=== PATIENT | female | born 1970 | race Caucasian/White ===

== ENCOUNTER 2020-08-28 03:15 | Emergency (ER) | payer OTHER, SELFPAY ==
[2020-08-28 03:48] LABS: Basophils Percent Auto 0.2 % (0-2); Hematocrit 37.1 % (37-47); Hemoglobin 12.9 g/dl (12.0-16.0); Imm Gran Abs Auto 0.06 X10*3/uL (0.00-0.03); Imm Gran Pct Auto 0.4 % (0.0-0.4); Lymphocytes Absolute Auto 0.7 X10*3/uL (1.2-4.9); Lymphocytes Percent Auto 4.9 % (20-40); Mean Corpuscular HGB Conc 34.8 g/dl (31.0-35.0); Mean Corpuscular Hemoglobin 31.5 pg (27.0-33.0); Mean Corpuscular Volume 90.7 fL (80-98); Mean Platelet Volume 8.5 fL (9.4-12.3); Monocytes Absolute Auto 1.4 X10*3/uL (0.1-1.2); Neutrophils Absolute Auto 11.9 X10*3/uL (2.0-8.3); Neutrophils Percent Auto 84.5 % (45-73); Platelet Count 324 X10*3/uL (160-400); Red Blood Count 4.09 X10*6/uL (4.20-5.50); Red Cell Distribution Width 14.1 % (11.0-16.0); SCAN SMEAR FLAG 1; White Blood Count 14.1 X10*3/uL (4.8-10.8)
[2020-08-28 03:49] LABS: MANUAL DIFF FLAG NO
[2020-08-28 04:17] VITALS: BP 124/86; PULSE 110; RESP 18; TEMP 37.1; O2SAT 99; BMI 17.2
[2020-08-28 04:20] LABS: Ethanol < 10 mg/dL
[2020-08-28 04:28] LABS: Alanine Aminotransferase 25 U/L (0-31); Albumin Level 3.9 g/dL (3.5-5.0); Alkaline Phosphatase 83 U/L (39-117); Anion Gap 18 (12-20); Aspartate Amino Transferase 53 U/L (5-31); Bilirubin Total 1.1 mg/dL (0.0-1.0); Blood Urea Nitrogen 15 mg/dL (9-16); Carbon Dioxide 34 mmol/L (22-29); Chloride 87 mmol/L (96-108); Creatinine Clr Calc Pharmacy 44.2; Estimated Glomerular Filt Rate 60; Glucose Random 142 mg/dL (60-115); Potassium 3.4 mmol/l (3.3-5.1); Sodium 136 mmol/L (135-145); Total Protein 6.7 g/dL (6.5-8.0)
[2020-08-28 05:03] LABS: Calcium 8.7 mg/dL (8.4-10.2)
--- NOTE | 2020-08-28 06:07 | PC.NURSE ---
Pt reports feeling better following IV fluids, Pt requesting something for nausea.
[2020-08-28 06:11] VITALS: BP 109/73; PULSE 100; O2SAT 99
[2020-08-28] MEDS: 0.9 % Sodium Chloride 1,000 ML 999 ML IVCONT (06:24)
[2020-08-28] MEDS: ondansetron HCL 4 MG/2 ML VIAL IVPUSH (06:24)
--- NOTE | 2020-08-28 06:35 | PC.NURSE ---
pt asking for anxiety medication. pt was ambulatory to bathroom with steady gait.
--- NOTE | 2020-08-28 06:35 | ED.ALCOHOL ---
HPI - Alcohol General Chief Complaint: ETOH/Substance Use Stated Complaint: Alcohol Withdrawals Time Seen by Provider: 08/28/20 06:35 Source: patient Mode of arrival: ambulatory Limitations: no limitations History of Present Illness MD complaint: alcohol withdrawal Last drink: Days (ago) (1) Chronic alcohol use: Yes Previous visits for alcohol intoxication: Yes Recent trauma: No Associated symptoms: nausea, vomiting, tremors and depression Treatments prior to arrival: none Related Data Allergies Allergy/AdvReac Type Severity Reaction Status Date / Time acetaminophen [From PERCOCET] Allergy Unknown PURITIS Verified 08/28/20 07:42 oxycodone [From OXYCONTIN] Allergy Unknown ITCHING Verified 08/28/20 07:42 vicodin Allergy Unknown Itching Uncoded 08/28/20 04:22 Review of Systems Review of Systems: Constitutional : No Fever, No Chills ENT/Mouth : No sore throat, No Rhinorrhea Eyes: No Eye Pain, No Swelling, No Redness Cardiovascular : No Chest Pain, No SOB Respiratory : No Cough, No Sputum Gastrointestinal : pos Nausea, pos Vomiting, No Diarrhea, No abdominal Pain Genitourinary : No Dysuria, No Hematuria Musculoskeletal : No joint pain, No Myalgias, No Joint Swelling Skin : No Skin Lesions, No rash Neuro : No Weakness, No Numbness Psych : pos Anxiety, No Depression, No SI/HI/AH/VH Heme/Lymph: No Bruising, No Bleeding Endocrine : No Polyuria, No Polydipsia All other systems reviewed and are negative FOR[facility]LY [facility], [facility] Past Medical History Medical History (Updated 08/28/20 @ 06:49 by Laura Brown DO) Alcoholism Depression Hypokalemia Social History Social History (Updated 08/28/20 @ 06:49 by Laura Brown DO) Alcohol intake: current Smoking Status: Former smoker Advance Directives: No Advance Directives Information Provided: No Physical Exam Vital Signs: Vital Signs: Vital Signs Temp Pulse Resp BP Pulse Ox 08/28/20 06:11 100 109/73 99 08/28/20 04:17 98.7 F 110 H 18 124/86 99 Body Mass Index 17.2 Appearance: Alert. Oriented X3. No acute distress. anxious Eyes: Pupils equal, round and reactive to light. ENT: Pharynx normal. Neck: Normal inspection. Neck supple. CVS: Normal heart rate and rhythm. Pulses normal. Respiratory: No respiratory distress. Breath sounds normal. Abdomen: Soft and nontender. Skin: Skin warm and dry. Normal skin color. Normal skin turgor. Extremities: No lower extremity edema. No calf ttp Neuro: Oriented X 3. No motor deficit. No sensory deficit. Course Course Course Narrative: cleared by CARE team, has resources at home, stable for DC at this time, can tolerate PO MDM - Alcohol MDM Narrative Medical decision making narrative: 50 yo female with ETOH who had a rehab set up but didn't go comes in with n/v and feeling weak - will give librium, hydrate obtain labs and refer to recovery coaches, no SI/HI Lab Data Result diagrams: 08/28/20 03:43 08/28/20 03:43 Labs: Lab Results 08/28/20 08/28/20 08/28/20 Range/Units 03:43 03:43 03:43 WBC 14.1 H (4.8-10.8) X10*3/uL RBC 4.09 L (4.20-5.50) X10*6/uL Hgb 12.9 (12.0-16.0) g/dl Hct 37.1 (37-47) % MCV 90.7 (80-98) fL MCH 31.5 (27.0-33.0) pg MCHC 34.8 (31.0-35.0) g/dl RDW 14.1 (11.0-16.0) % Plt Count 324 (160-400) X10*3/uL MPV 8.5 L (9.4-12.3) fL Immature Gran % (Auto) 0.4 (0.0-0.4) % Neut % (Auto) 84.5 H (45-73) % Lymph % (Auto) 4.9 L (20-40) % [place] % (Auto) 10.0 (2-11) % Eos % (Auto) 0.0 (0-4) % Baso % (Auto) 0.2 (0-2) % Lymph # (Auto) 0.7 L (1.2-4.9) X10*3/uL [place] # (Auto) 1.4 H (0.1-1.2) X10*3/uL Eos # (Auto) 0.0 (0.0-0.4) X10*3/uL Baso # (Auto) 0.0 (0.0-0.2) X10*3/uL Abs Immat Gran (auto) 0.06 H (0.00-0.03) X10*3/uL Absolute Neuts (auto) 11.9 H (2.0-8.3) X10*3/uL Absolute Nucleated RBC 0.000 (0.0-0.012) X10*3/uL Nucleated RBC % (auto) 0.0 (0.0-0.2) /100WBC Sodium 136 (135-145) mmol/L Potassium 3.4 (3.3-5.1) mmol/l Chloride 87 L (96-108) mmol/L Carbon Dioxide 34 H (22-29) mmol/L Anion Gap 18 (12-20) BUN 15 (9-16) mg/dL Creatinine 0.98 (0.5-1.4) mg/dL Estim Creat Clear Calc 44.2 Estimated GFR 60 Random Glucose 142 H (60-115) mg/dL Calcium 8.7 (8.4-10.2) mg/dL Magnesium 1.5 L (1.6-2.6) mg/dL Total Bilirubin 1.1 H (0.0-1.0) mg/dL AST 53 H (5-31) U/L ALT 25 (0-31) U/L Alkaline Phosphatase 83 (39-117) U/L Total Protein 6.7 (6.5-8.0) g/dL Albumin 3.9 (3.5-5.0) g/dL Urine Opiates Screen (Not Detect) Ur Barbiturates Screen (Not Detect) Ur Phencyclidine Scrn (Not Detect) Ur Amphetamines Screen (Not Detect) U Benzodiazepines Scrn (Not Detect) Urine Cocaine Screen (Not Detect) U Marijuana (THC) Screen (Not Detect) Ethyl Alcohol < 10 mg/dL 08/28/20 Range/Units 06:27 WBC (4.8-10.8) X10*3/uL RBC (4.20-5.50) X10*6/uL Hgb (12.0-16.0) g/dl Hct (37-47) % MCV (80-98) fL MCH (27.0-33.0) pg MCHC (31.0-35.0) g/dl RDW (11.0-16.0) % Plt Count (160-400) X10*3/uL MPV (9.4-12.3) fL Immature Gran % (Auto) (0.0-0.4) % Neut % (Auto) (45-73) % Lymph % (Auto) (20-40) % [place] % (Auto) (2-11) % Eos % (Auto) (0-4) % Baso % (Auto) (0-2) % Lymph # (Auto) (1.2-4.9) X10*3/uL [place] # (Auto) (0.1-1.2) X10*3/uL Eos # (Auto) (0.0-0.4) X10*3/uL Baso # (Auto) (0.0-0.2) X10*3/uL Abs Immat Gran (auto) (0.00-0.03) X10*3/uL Absolute Neuts (auto) (2.0-8.3) X10*3/uL Absolute Nucleated RBC (0.0-0.012) X10*3/uL Nucleated RBC % (auto) (0.0-0.2) /100WBC Sodium (135-145) mmol/L Potassium (3.3-5.1) mmol/l Chloride (96-108) mmol/L Carbon Dioxide (22-29) mmol/L Anion Gap (12-20) BUN (9-16) mg/dL Creatinine (0.5-1.4) mg/dL Estim Creat Clear Calc Estimated GFR Random Glucose (60-115) mg/dL Calcium (8.4-10.2) mg/dL Magnesium (1.6-2.6) mg/dL Total Bilirubin (0.0-1.0) mg/dL AST (5-31) U/L ALT (0-31) U/L Alkaline Phosphatase (39-117) U/L Total Protein (6.5-8.0) g/dL Albumin (3.5-5.0) g/dL Urine Opiates Screen Not Detected (Not Detect) Ur Barbiturates Screen Not Detected (Not Detect) Ur Phencyclidine Scrn Not Detected (Not Detect) Ur Amphetamines Screen Not Detected (Not Detect) U Benzodiazepines Scrn Not Detected (Not Detect) Urine Cocaine Screen Not Detected (Not Detect) U Marijuana (THC) Screen POSITIVE H (Not Detect) Ethyl Alcohol mg/dL
[2020-08-28 07:04] LABS: Amphetamine Screen Urine Not Detected (Not Detect); Barbiturates, Urine Not Detected (Not Detect); Benzodiazepines Screen Urine Not Detected (Not Detect); Cannabinoid Screen Urine POSITIVE (Not Detect); Cocaine Screen Urine Not Detected (Not Detect); Opiate Screen Urine Not Detected (Not Detect); Phencyclidine Screen Urine Not Detected (Not Detect)
[2020-08-28 07:08] LABS: Magnesium 1.5 mg/dL (1.6-2.6)
[2020-08-28] MEDS: chlordiazePOXIDE HCl 25 MG CAPSULE PO (07:43)
--- NOTE | 2020-08-28 08:24 | PC.NURSE ---
GIGI SEEN BY CARE TEAM TO ADDRESS ETOH ABUSE
--- NOTE | 2020-08-28 08:26 | PC.NURSE ---
CALL TO PHARM TO MAKE BANANA BAG.
--- NOTE | 2020-08-28 08:37 | MHC.CARE ---
CARE Team consult RE: etoh CARE Team met with the 50 year old [place] speaking Female in bed 4 of the main ED to discuss alcohol use and recovery. Patient was previously here a month ago due to alcohol use. Patient reports she is tired of living like this, reporting that she feels bad for her family and her boyfriend who have to put up with her. Patient reports that she has been dealing with alcoholism and anorexia for 11 years and she feels as though her boyfriend is fed up with giving her last chances. [facility] and that her psychiatrist had gotten her into [facility] 3 [facility] however her boyfriend did not want her to go. Patient reports that her boyfriend did not want her away that long, especially for the holidays. Patient reports her and her boyfriend had an argument due to her being unable to stop drinking and that he told her not to come back to the house that they both own. [facility] reports that [facility] that was supposed to start yesterday however she did not attend. Patient acknowledges that at this time she would benefit most from going to rehab and utilizing the supports she has in place. Patient reports she has [facility] and [facility] and that she was previously attending 3 groups a day there. Patient reports her longest period of sobriety was about a year ago and that it lasted for about a year. Patient reports that when her alcoholism is under control, her anorexia gets worse. Patient denies SI/HI/AH/VH however reports depression and hopelessness. Patient encouraged to reach out to the [facility] to see what they can offer her at this time. Patient does not have insurance so it is in her best [facility]. CARE Team will check in with patient to see if there is any additional resources patient is interested in however patient is well [facility] the [facility]. Discussed case with ED provider. [facility] Team available as needed.
[2020-08-28] MEDS: LORazepam 1 MG TABLET PO (09:24)
[2020-08-28 09:25] VITALS: BP 100/61; PULSE 102
--- NOTE | 2020-08-28 09:26 | PC.NURSE ---
BANANA BAG UP. MEDICATED WITH [facility]. PLAN IS FOR DC AFTER IVF. BOYFRIEND COMING. [facility] WILL F[facility]U WITH PT ABOUT [facility]OX
--- NOTE | 2020-08-28 09:37 | PC.NURSE ---
OFF UNIT TO CT
== END 2020-08-28 10:38 | disposition home or self-care (01) ==
PROVIDERS: Emergency Medicine; Emergency Provider Emergency Medicine
DX: F10.239 Alcohol dependence with withdrawal, unspecified (principal); Y90.9 Presence of alcohol in blood, level not specified; R11.2 Nausea with vomiting, unspecified; Z79.899 Other long term (current) drug therapy
CPT/HCPCS: 36415; 80053; 80307; 80320; 83735; 85025; 96361; 96374; 96375; 99284; J2405; J3411

== ENCOUNTER 2021-05-06 09:32 | Inpatient (IN) | payer OTHER, SELFPAY ==
[2021-05-06] VITALS (9 sets, daily range): BP systolic 115–156; BP diastolic 63–96; PULSE 102–130; RESP 16–22; TEMP 36.6–37.1; O2SAT 93–98; BMI 18.3
--- NOTE | 2021-05-06 | ECG_ITS ---
Test Reason : FALL Blood Pressure : / mmHG Vent. Rate : 103 BPM Atrial Rate : 103 BPM P-R Int : 150 ms QRS Dur : 086 ms QT Int : 394 ms P-R-T Axes : 075 065 072 degrees QTc Int : 516 ms Sinus tachycardia Otherwise normal ECG When compared with ECG of 23-JUL-2020 08:01, No significant change was found Referred By: Jose Raul Rushing Electronically Signed By:Jon Shukla
--- NOTE | ~2021-05-06 | CT_ITS ---
EXAMINATION: CT BRAIN AND CT CERVICAL SPINE WITHOUT CONTRAST. CLINICAL INFORMATION: Status post fall and hematoma COMPARISON: None TECHNIQUE: 5 mm thin axial and reformatted 2 mm thin sagittal and coronal images of brain were obtained. Subsequently axial 3 mm thin and reformatted 2 mm thin sagittal and coronal images of cervical spine were obtained. DLP 879 FINDINGS: BRAIN: There is no acute intra-axial, extra-axial bleed, masses or midline shift. There is no acute infarct in evolution. The lateral ventricles are symmetrical in size and configuration without enlargement. There is no edema. There is acute left parietal hematoma with moderate subacute hematoma extending to the right of midline. There is no calvarial fracture. CERVICAL SPINE: There is normal cervical lordosis. The vertebral heights and alignment is normal. There is loss of C4-C5 disc height with ventral and posterior spondylosis. There is no visible acute fracture, dislocation or subluxation seen. The craniovertebral junction and the C1-C2 alignment is normal. There is no visible acute fracture, dislocation or subluxation seen. There is mild left apical pleural thickening and parenchymal scarring. The prevertebral and paravertebral soft tissues are normal. The airway is widely patent. CT/CT cervical spine wo con IMPRESSION: No acute intracranial process seen. There is no acute fracture, dislocation or subluxation of cervical spine. There are degenerative disc changes with posterior spondylosis at C4-C5 disc level.
--- NOTE | ~2021-05-06 | IR_ITS ---
EXAMINATION: IR SACROPLASTY/KYPHOPLASTY CLINICAL INFORMATION: Bilateral sacral fractures. COMPARISON: None TECHNIQUE: Following explaining fluoroscopy-guided bilateral approach sacroplasty procedure, benefits and risk, a written consent was obtained. Patient was placed prone on fluoroscopy table and low back area was cleaned and draped in the usual sterile manner. 1% lidocaine was injected overlying the right lateral sacrum. Through a small skin incision a 10-gauge Kyphon needle was inserted along the right lateral sacrum on AP and lateral view. A similar 10-gauge needle was advanced along the left sacrum on AP and lateral view. 5 mL of contrast was injected to confirm position of the needle. Subsequently, premixed polymethyl methacrylate was injected through the right needle followed by left needle under continuous AP, and lateral fluoroscopy monitoring. After achieving adequate amount of cement and observing no cement leak, both needles were withdrawn and complete hemostasis achieved at puncture site. Patient tolerated procedure extremely well. Sedation was provided by the Anesthesia Department. 2 g of Kefzol was administered prior to the exam. FINDINGS: There is adequate amount of cement seen occupying the S1 vertebra with no extravasation of contrast visualized. The SI joints are symmetrical and normal. FLUOROSCOPY TIME: 17.6 minutes DOSE AREA PRODUCT: 3138 uGy-m2 (microgray-meter squared) IR/IR kyphoplasty lumbar IMPRESSION: Successful fluoroscopy-guided bilateral S1 Sacroplasty performed without immediate complications.
--- NOTE | ~2021-05-06 | CT_ITS ---
EXAMINATION: CT PELVIS WITHOUT CONTRAST CLINICAL INFORMATION: Status post traumatic deformity sacrum and coccyx. Old healed fracture inferior pubic rami and likely underlying fracture bilateral superior pubic rami on recent x-ray 05/06/2021. COMPARISON: Pelvis x-ray performed today. TECHNIQUE: Helical scanning was performed with submillimeter collimation through the pelvis. Sagittal and coronal multiplanar 2-D reconstructions were obtained. This CT examination was performed using dose optimization techniques as appropriate, variously including the following: *Automated exposure control *Adjustment of mA and/or kV according to patient size (this includes techniques or standardized protocols for targeted exams where dose is matched to indication/reason for exam; i.e. extremities or head) *Use of iterative reconstruction technique DLP: 172 mGy-cm FINDINGS: PELVIS: Gas pattern is nonspecific. No abnormal pelvic lymph nodes or mass seen. There is no free fluid. The uterus is anteverted and appears unremarkable. The abdominal wall appears normal. OSSEOUS STRUCTURES: There is a kyphotic deformity from S2-S3 fracture. There are bilateral sacral alar fractures as well. These fractures appear acute and nodules. The SI joints are symmetrical and normal. Also visualized is a healed left pubic rami fracture with callus formation. There are fractures involving bilateral inferior pubic rami with callus formation. The fracture lines are seen bilaterally. There is a nondisplaced acute fracture right superior pubic ramus on coronal image 110/5 and axial image 66/4. There is no diastases of the pubic symphysis. Bilateral hip joints are symmetrical. There is no fracture involving the hip joints of the proximal femora. CT/CT pelvis wo con IMPRESSION: Likely bilateral S2-S3 fracture deformity and and bilateral sacral hilar fractures appear acute. There is acute fracture nondisplaced right superior pubic rami. The sacral fractures can be treated with sacro plasty Old fractures involving the left superior pubic and bilateral inferior pubic rami. There is no hip joint fractures seen. There is no pubic symphysis diastases.
--- NOTE | ~2021-05-06 | XR_ITS ---
EXAMINATION: MR LUMBAR SPINE XR SACRUM AND COCCYX CLINICAL INFORMATION: Fall, trauma, pain COMPARISON: None TECHNIQUE: Lumbar spine is imaged in AP and lateral views. The sacrum and coccyx are imaged in 3 views. There are a total of 5 views. FINDINGS: Lumbar spine: There is normal lumbar segmentation with 5 nonrib-bearing lumbar vertebrae of normal height and normal lumbar lordosis. There is no visible fracture or vertebral compression, disc narrowing, or spondylolisthesis. There is a smooth cleft inferior posterior aspect of the L3 posterior spinous process. Margins appear corticated. No fracture is suspected. This may be correlated with patient's symptoms and clinical exam. Sacrum/coccyx: The lateral views shows deformity of the mid sacrum and mid coccyx suspicious for old healed injury. There is no visible acute fracture line. No diastases SI joints or pubis. There may be old healed injuries of the inferior pubic rami. One of the 2 frontal views shows short vertically oriented lucency lateral aspect right superior pubic ramus not appreciated on the other projection. XR/XR sacrum coccyx min 2V IMPRESSION: 1. 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 Otherwise unremarkable lumbar spine. 2. Posttraumatic deformity sacrum and coccyx, suggesting old healed injury. Possible old healed fractures inferior pubic rami. Hairline fracture versus artifact right lateral superior pubic ramus. 3. Recommend correlation of above findings with patient's past trauma history, current symptoms, and clinical exam. If clinically indicated, further evaluation may be performed with CT to assess for occult fracture.
--- NOTE | ~2021-05-06 | CT_ITS ---
EXAMINATION: CT LUMBAR SPINE CLINICAL INFORMATION: Post S1 and S2 sacroplasty COMPARISON: CT pelvis 05/06/2021 TECHNIQUE: Axial 2 mm thin and reformatted 2 mm thin sagittal coronal images of sacrum were obtained without contrast. This CT examination was performed using dose optimization techniques as appropriate, variously including the following: *Automated exposure control *Adjustment of mA and/or kV according to patient size (this includes techniques or standardized protocols for targeted exams where dose is matched to indication/reason for exam; i.e. extremities or head) *Use of iterative reconstruction technique DLP: 163 mGy-cm FINDINGS: There is adequate amount of cement occupying bilateral S1 and minimal S2 vertebra through which sacral fractures are visualized. There is no extravasation of cement seen within the neural foramina or the SI joint. Fractures involving the S1 and S2 vertebra noted. No cement was injected in the S2 vertebra due to precarious positioning of the needles. However, if the patient has continued sacral pain, a repeat attempt for S2 fracture treatment can be performed under CT. The SI joints are symmetrical. The neural foramina are patent. CT/CT sacrum IMPRESSION: Known S1 and S2 fractures. There is cement augmentation seen throughout the S1 vertebra with no extravasation seen into the neural foramina or SI joints.
--- NOTE | ~2021-05-06 | XR_ITS ---
EXAMINATION: MR LUMBAR SPINE XR SACRUM AND COCCYX CLINICAL INFORMATION: Fall, trauma, pain COMPARISON: None TECHNIQUE: Lumbar spine is imaged in AP and lateral views. The sacrum and coccyx are imaged in 3 views. There are a total of 5 views. FINDINGS: Lumbar spine: There is normal lumbar segmentation with 5 nonrib-bearing lumbar vertebrae of normal height and normal lumbar lordosis. There is no visible fracture or vertebral compression, disc narrowing, or spondylolisthesis. There is a smooth cleft inferior posterior aspect of the L3 posterior spinous process. Margins appear corticated. No fracture is suspected. This may be correlated with patient's symptoms and clinical exam. Sacrum/coccyx: The lateral views shows deformity of the mid sacrum and mid coccyx suspicious for old healed injury. There is no visible acute fracture line. No diastases SI joints or pubis. There may be old healed injuries of the inferior pubic rami. One of the 2 frontal views shows short vertically oriented lucency lateral aspect right superior pubic ramus not appreciated on the other projection. XR/XR lumbar spine 2-3V IMPRESSION: 1. 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 Otherwise unremarkable lumbar spine. 2. Posttraumatic deformity sacrum and coccyx, suggesting old healed injury. Possible old healed fractures inferior pubic rami. Hairline fracture versus artifact right lateral superior pubic ramus. 3. Recommend correlation of above findings with patient's past trauma history, current symptoms, and clinical exam. If clinically indicated, further evaluation may be performed with CT to assess for occult fracture.
--- NOTE | ~2021-05-06 | CT_ITS ---
EXAMINATION: CT BRAIN AND CT CERVICAL SPINE WITHOUT CONTRAST. CLINICAL INFORMATION: Status post fall and hematoma COMPARISON: None TECHNIQUE: 5 mm thin axial and reformatted 2 mm thin sagittal and coronal images of brain were obtained. Subsequently axial 3 mm thin and reformatted 2 mm thin sagittal and coronal images of cervical spine were obtained. DLP 879 FINDINGS: BRAIN: There is no acute intra-axial, extra-axial bleed, masses or midline shift. There is no acute infarct in evolution. The lateral ventricles are symmetrical in size and configuration without enlargement. There is no edema. There is acute left parietal hematoma with moderate subacute hematoma extending to the right of midline. There is no calvarial fracture. CERVICAL SPINE: There is normal cervical lordosis. The vertebral heights and alignment is normal. There is loss of C4-C5 disc height with ventral and posterior spondylosis. There is no visible acute fracture, dislocation or subluxation seen. The craniovertebral junction and the C1-C2 alignment is normal. There is no visible acute fracture, dislocation or subluxation seen. There is mild left apical pleural thickening and parenchymal scarring. The prevertebral and paravertebral soft tissues are normal. The airway is widely patent. CT/CT head/brain wo con IMPRESSION: No acute intracranial process seen. There is no acute fracture, dislocation or subluxation of cervical spine. There are degenerative disc changes with posterior spondylosis at C4-C5 disc level.
--- NOTE | ~2021-05-06 | XR_ITS ---
EXAMINATION: XR SHOULDER, LEFT CLINICAL INFORMATION: Fall, trauma, pain COMPARISON: Radiographs left shoulder 11/24/2019 TECHNIQUE: The left shoulder is imaged in 3 views. FINDINGS: There is old healed fracture with posttraumatic deformity surgical neck left humerus. There is no visible acute fracture or dislocation. The acromioclavicular alignment is normal. No visible rotator cuff calcifications. There is old healed fracture left 8th rib. XR/XR shoulder LT min 2V IMPRESSION: 1. Old posttraumatic deformity surgical neck left humerus. 2. Old healed fracture left posterior eighth rib. 3. No visible acute fracture or dislocation.
[2021-05-06 10:16] LABS: MANUAL DIFF FLAG NO
[2021-05-06 10:17] LABS: Basophils Absolute Auto 0.1 X10*3/uL (0.0-0.2); Basophils Percent Auto 0.5 % (0-2); Hematocrit 38.1 % (37-47); Hemoglobin 13.1 g/dl (12.0-16.0); Imm Gran Abs Auto 0.05 X10*3/uL (0.00-0.03); Imm Gran Pct Auto 0.5 % (0.0-0.4); Lymphocytes Absolute Auto 0.3 X10*3/uL (1.2-4.9); Lymphocytes Percent Auto 3.1 % (20-40); Mean Corpuscular HGB Conc 34.4 g/dl (31.0-35.0); Mean Corpuscular Hemoglobin 32.7 pg (27.0-33.0); Mean Platelet Volume 8.5 fL (9.4-12.3); Monocytes Absolute Auto 1.4 X10*3/uL (0.1-1.2); Monocytes Percent Auto 12.8 % (2-11); Neutrophils Absolute Auto 9.2 X10*3/uL (2.0-8.3); Neutrophils Percent Auto 83.1 % (45-73); Platelet Count 235 X10*3/uL (160-400); Red Blood Count 4.01 X10*6/uL (4.20-5.50); Red Cell Distribution Width 14.6 % (11.0-16.0); White Blood Count 11.1 X10*3/uL (4.8-10.8)
--- NOTE | 2021-05-06 10:25 | ED_ITS ---
HPI - Fall General Chief Complaint: Fall Stated Complaint: fall - low back pain Time Seen by Provider: 05/06/21 10:00 Source: patient Mode of arrival: ambulatory Limitations: no limitations History of Present Illness HPI Narrative: 50 y/o female with history of eating disorder, alcohol abuse who presents to the ER with 2 falls at home. She reports last night slipping down her steep stairs at home and falling onto her buttocks and hitting back of her head. She was able to get up with the help of her boyfriend. She reported severe tailbone pain at that time. She was ambulatory and able to go to sleep. When she woke up this morning she got out of bed and immediately collapsed. She doesn't know if she felt lightheaded or dizzy prior to either fall. She does not know if she lost consciousness. She had persistent lower back and pelvic pain after the second fall. She states her last alcoholic drink was maybe 2 days ago. She does not recall the last time she ate any food. No dizziness, lightheadedness, or SOB. She has some right sided chest pain that is worse when she touches her chest wall. MD complaint: fall Onset (ago): day(s) Fall from: standing Fall witnessed: no Place fall occurred: home Loss of consciousness: unsure Prolonged down time: no Context: tripped/slipped Location of injury: head, face and pelvis Location of injury - extremities: left: shoulder Severity: moderate Quality: sharp Associated symptoms (after fall): weakness and unable to walk Related Data Previous Rx's Medication Instructions Recorded chlordiazepoxide HCl 25 mg PO Q8H PRN #10 cap 08/28/20 ondansetron 4 mg PO Q8H PRN #20 tab 08/28/20 Allergies Allergy/AdvReac Type Severity Reaction Status Date / Time acetaminophen [From PERCOCET] Allergy Unknown PURITIS Verified 08/28/20 07:42 oxycodone [From OXYCONTIN] Allergy Unknown ITCHING Verified 08/28/20 07:42 vicodin Allergy Unknown Itching Uncoded 08/28/20 04:22 Review of Systems Review of Systems: Constitutional: No Fever, No Chills ENT/Mouth: No sore throat, No Rhinorrhea, No Swallowing Difficulty Eyes: No Eye Pain, No Swelling, No Redness Cardiovascular: + Chest Pain, No SOB, No Orthopnea, No Edema Respiratory: No Cough, No Sputum, No Wheezing, No dyspnea Gastrointestinal: No Nausea, No Vomiting, No Diarrhea, No abdominal Pain, No Hematochezia, No Melena Genitourinary: No Dysuria, No Urinary Frequency, No Hematuria Musculoskeletal: + joint pain, + Myalgias Skin: No Skin Lesions, No rash Neuro: + Weakness, No Numbness, No Dizziness, + Headache Psych: No Anxiety/Panic, No Depression Heme/Lymph: No Bruising, No Lymphadenopathy Endocrine: No Polyuria, No Polydipsia PMFSH Past Medical History Attestation statement: The following information was validated with the patient. Medical History Alcoholism Depression Hypokalemia Social History Social History (Updated 08/28/20 @ 06:49 by Laura Brown DO) Alcohol intake: current Advance Directives: Yes Advance Directives Information Provided: Yes Advance Directives on File: No Patient : No Physical Exam Vital Signs: Vital Signs: Last Vital Signs Temp 98.1 F 05/06/21 09:36 Pulse 112 H 05/06/21 12:13 Resp 17 05/06/21 12:55 BP 135/87 05/06/21 12:13 Pulse Ox 97 05/06/21 12:13 Body Mass Index 18.3 Appearance: Alert. Oriented X3. Frail, very thin Head/neck: palpable hematoma to occipital area, no depressions or palpable skull fracture. normal neck inspection, no cervical spinal tenderness Eyes: Pupils equal, round and reactive to light. Ecchymosis above left eyebrow w/ small hematoma ENT: Pharynx normal. Neck: Normal inspection. Neck supple. CVS: tachycardic, regular rhythm. Pulses normal. Anterior chest wall tenderness on the left mild. Respiratory: No respiratory distress. Breath sounds normal. Abdomen: Soft and nontender. +BS x4 Skin: Skin warm and dry. Normal skin color. Normal skin turgor. No rashes. Pelvis: stable pelvis with tenderness along lower lumbar spine and coccyx, no ecchymosis Extremities: No lower extremity edema. Atraumatic lower extremities. Ecchymosis and superficial abrasion on left superiolateral left shoulder, mild tenderness with normal ROM. Neuro: Oriented X 3. No motor deficit. No sensory deficit. Speaking in complete sentences. Unable to assess gait due to pain Course Course Course Narrative: 50 y/o female with history of eating disorder and alcohol abuse presents to the ED with low back pain and sacral pain s/p fall down stairs last night and recurred collapse this morning. She is frail appearing. Suspect dehydration, possible hypoglycemia and electrolyte derrangements due to anorexia. Will check POC glucose, labs, ETOH level and imaging of head/spine, low back, coccyx and left shoulder. Will check orthostatic VS and hydrate with IVF. Dispo pending results and improvement. Reevaluation(s) Reevaluation #1: CT head/neck show no traumatic injury. Lab workup is unremarkable, no anemia or significant electrolyte abnormality. glucose 190s. X Rs of the pelvis showing possible hairline fracture of pubic rami will get CT for further evaluation. IV toradol ordered for pain control with good effect. Reevaluation #2: CT pelvis showing Likely bilateral S2-S3 fracture deformity and and bilateral sacral hilar fractures appear acute. There is acute fracture nondisplaced right superior pubic rami. The sacral fractures can be treated with sacro plasty Old fractures involving the left superior pubic and bilateral inferior pubic rami. There is no hip joint fractures seen. There is no pubic symphysis diastases. Ortho recommending WBAT for pubic rami fracture, unable to provide recommendations on sacral fractures. Dr. Pulido agreeable to treatment with sacroplasty and patient wishes to proceed with treatment given her severe pain. PRN Vicoden ordered given persistent pain after toradol. Will plan for admission for pain control and treatment of her sacral fracture. Consultations Consultation #1: Ortho - Kait Mccormick PA-C Consultation #2: IR - Dr. Pulido MDM - Fall Differential Diagnosis Differential diagnosis: Likely syncope, fracture, compression fracture, c oncussion with loss of consciousness and concussion without loss of consciousness Medical Records Attestation: I reviewed the patient's medical records. Lab Data Attestation: I reviewed the patient's lab results. Result diagrams: 05/06/21 10:11 05/06/21 10:11 Labs: Lab Results 05/06/21 05/06/21 05/06/21 Range/Units 10:11 10:11 10:11 WBC 11.1 H (4.8-10.8) X10*3/uL RBC 4.01 L (4.20-5.50) X10*6/uL Hgb 13.1 (12.0-16.0) g/dl Hct 38.1 (37-47) % MCV 95.0 (80-98) fL MCH 32.7 (27.0-33.0) pg MCHC 34.4 (31.0-35.0) g/dl RDW 14.6 (11.0-16.0) % Plt Count 235 D (160-400) X10*3/uL MPV 8.5 L (9.4-12.3) fL Immature Gran % (Auto) 0.5 H (0.0-0.4) % Neut % (Auto) 83.1 H (45-73) % Lymph % (Auto) 3.1 L (20-40) % [place] % (Auto) 12.8 H (2-11) % Eos % (Auto) 0.0 (0-4) % Baso % (Auto) 0.5 (0-2) % Lymph # (Auto) 0.3 L (1.2-4.9) X10*3/uL [place] # (Auto) 1.4 H (0.1-1.2) X10*3/uL Eos # (Auto) 0.0 (0.0-0.4) X10*3/uL Baso # (Auto) 0.1 (0.0-0.2) X10*3/uL Abs Immat Gran (auto) 0.05 H (0.00-0.03) X10*3/uL Absolute Neuts (auto) 9.2 H (2.0-8.3) X10*3/uL Absolute Nucleated RBC 0.000 (0.0-0.012) X10*3/uL Nucleated RBC % (auto) 0.0 (0.0-0.2) /100WBC Sodium 139 (135-145) mmol/L Potassium 3.8 (3.3-5.1) mmol/L Chloride 102 (96-108) mmol/L Carbon Dioxide 20 L (22-29) mmol/L Anion Gap 21 H (12-20) BUN 17 H (9-16) mg/dL Creatinine 0.73 (0.5-1.4) mg/dL Estim Creat Clear Calc 65.3 Estimated GFR > 60 Random Glucose 193 H D (60-115) mg/dL Calcium 8.6 (8.4-10.2) mg/dL Troponin I High Sens (<3.5-17.0) ng/L Ethyl Alcohol < 10 mg/dL 05/06/21 Range/Units 11:06 WBC (4.8-10.8) X10*3/uL RBC (4.20-5.50) X10*6/uL Hgb (12.0-16.0) g/dl Hct (37-47) % MCV (80-98) fL MCH (27.0-33.0) pg MCHC (31.0-35.0) g/dl RDW (11.0-16.0) % Plt Count (160-400) X10*3/uL MPV (9.4-12.3) fL Immature Gran % (Auto) (0.0-0.4) % Neut % (Auto) (45-73) % Lymph % (Auto) (20-40) % [place] % (Auto) (2-11) % Eos % (Auto) (0-4) % Baso % (Auto) (0-2) % Lymph # (Auto) (1.2-4.9) X10*3/uL [place] # (Auto) (0.1-1.2) X10*3/uL Eos # (Auto) (0.0-0.4) X10*3/uL Baso # (Auto) (0.0-0.2) X10*3/uL Abs Immat Gran (auto) (0.00-0.03) X10*3/uL Absolute Neuts (auto) (2.0-8.3) X10*3/uL Absolute Nucleated RBC (0.0-0.012) X10*3/uL Nucleated RBC % (auto) (0.0-0.2) /100WBC Sodium (135-145) mmol/L Potassium (3.3-5.1) mmol/L Chloride (96-108) mmol/L Carbon Dioxide (22-29) mmol/L Anion Gap (12-20) BUN (9-16) mg/dL Creatinine (0.5-1.4) mg/dL Estim Creat Clear Calc Estimated GFR Random Glucose (60-115) mg/dL Calcium (8.4-10.2) mg/dL Troponin I High Sens 5.4 (<3.5-17.0) ng/L Ethyl Alcohol mg/dL ECG Data Attestation: I personally reviewed and interpreted this ECG as follows: ECG interpretation date: 05/06/21 ECG interpretation time: 14:11 Prior ECG tracings: available for review Interpretation: sinus tachycardia, HR 103 bpm, normal MD interval 150 ms, QTc prolonged [address] segment elevations or depressions. Critical Care Time Critical Care Time Critical Care Time: Yes Total Critical Care Time: 38 Attestation: I attest to critical care time spent caring for this patient with multiple pelvic fractures after recurrent falls at home. Time spent reviewing labs, imaging, discussing case with consultants and coordinating care. Discharge Plan Discharge Clinical Impression: Anorexia nervosa Closed fracture of single pubic ramus of pelvis Qualifiers: Encounter type: initial encounter Laterality: right Qualified Code(s): S32.591A - Other specified fracture of right pubis, initial encounter for closed fracture Closed sacral fracture Qualifiers: Encounter type: initial encounter Zone of sacrum fracture: unspecified portion of sacrum Qualified Code(s): S32.10XA - Unspecified fracture of sacrum, initial encounter for closed fracture Falls Qualifiers: Encounter type: initial encounter Qualified Code(s): W19.XXXA - Unspecified fall, initial encounter Patient Disposition: Admitted As Inpatient
[2021-05-06 10:43] LABS: Ethanol < 10 mg/dL
[2021-05-06 10:48] LABS: Anion Gap 21 (12-20); Blood Urea Nitrogen 17 mg/dL (9-16); Calcium 8.6 mg/dL (8.4-10.2); Carbon Dioxide 20 mmol/L (22-29); Chloride 102 mmol/L (96-108); Creatinine Clr Calc Pharmacy 65.3; Estimated Glomerular Filt Rate > 60; Glucose Random 193 mg/dL (60-115); Potassium 3.8 mmol/L (3.3-5.1); Sodium 139 mmol/L (135-145)
[2021-05-06 11:42] LABS: Troponin-I High Sensitivity 5.4 ng/L (<3.5-17.0)
--- NOTE | 2021-05-06 11:49 | PC.NURSE ---
Patients pattie Barnes
[2021-05-06] MEDS: Ketorolac Tromethamine 15 MG/ML VIAL IVPUSH (12:16)
[2021-05-06] MEDS: 0.9 % Sodium Chloride 1,000 ML 999 ML IVCONT (12:37)
[2021-05-06] MEDS: HYDROcodone Bit/Acetam 5/325 TABLET 1 TAB PO ×2 (14:33→20:36)
--- NOTE | 2021-05-06 15:57 | PHA.MEDREC ---
Pharmacy Consult ? Medication Reconciliation Pharmacy has completed the medication reconciliation.
--- NOTE | 2021-05-06 16:25 | PM.IMHP ---
History of Present Illness Date of Service: 05/06/21 Chief Complaint: Fall, back pain A 50 years old lady with PMH of anxiety disorder, anorexia nervosa who presented to the hospital after sustaining a fall at home. She reports that she slipped at stairs at home what she was going downward and she fell all the way down on her back and bottle ox. She reports she was able to stand up after that incident with no significant pain in wound back to her bed with but when she woke up this morning she has significant pain that she could not even stand up and ended up falling again from her bed. She denies any loss of conscious, any dizziness or lightheadedness. In the emergency a CT scan of the abdomen and pelvis was consistent with closed fracture of pelvic rami. Discussed with IR who will do sacroplasty for her. Admitted for further evaluation and treatment. Review of Systems Review of Systems: No fever, chills or weakness No chest pain, palpitation No shortness of breath or coughing No abdominal pain, nausea or vomiting No urinary symptoms No any rash or wounds Pain in her pelvic bones is she is unable to ambulate much because of that. FOR[facility]LY [facility] Medical History Alcoholism Depression Hypokalemia Social History Alcohol intake: current Advance Directives: Yes Advance Directives Information Provided: Yes Advance Directives on File: No Patient : No Meds Allergies Allergy/AdvReac Type Severity Reaction Status Date / Time acetaminophen [From PERCOCET] Allergy Unknown PURITIS Verified 08/28/20 07:42 oxycodone [From OXYCONTIN] Allergy Unknown ITCHING Verified 08/28/20 07:42 vicodin Allergy Unknown Itching Uncoded 08/28/20 04:22 Active Medications: Current Medications Generic Name Dose Route Start Last Admin Trade Name Freq PRN Reason Stop Dose Admin Hydrocodone Bitart/Acetaminophen 1 tab 05/06/21 14:08 05/06/21 14:33 Hydrocodone Bit/Acetam 5/325 Tablet PO 1 tab Q6H PRN Administration pain Pharmacy Consult 1 each 05/06/21 14:31 Consult Rx Perform Med Rec MISCELLANE ONCE PRN Consult order Home Medications Medication Instructions Recorded Confirmed Last Taken Type acamprosate 333 mg PO TID 05/06/21 05/06/21 Unknown History calcium carbonate [Calcium 500] 1,000 mg PO DAILY 05/06/21 05/06/21 Unknown History cholecalciferol (vitamin D3) 50 mcg PO DAILY 05/06/21 05/06/21 Unknown History clonidine 1 patch TRANSDERMAL QWEEK 05/06/21 05/06/21 Unknown History hydroxyzine HCl 10 mg PO BEDTIME PRN 05/06/21 05/06/21 Unknown History magnesium oxide 250 mg PO DAILY 05/06/21 05/06/21 Unknown History potassium chloride 20 meq PO BID 05/06/21 05/06/21 Unknown History triamcinolone acetonide 1 appl TOPICAL DAILY PRN 05/06/21 05/06/21 Unknown History venlafaxine 37.5 mg PO DAILY 05/06/21 05/06/21 Unknown History Physical Exam Vital Signs and Narrative: Vital Signs: Last Vital Signs Temp 98.1 F 05/06/21 09:36 Pulse 112 H 05/06/21 12:13 Resp 17 05/06/21 12:55 BP 135/87 05/06/21 12:13 Pulse Ox 97 05/06/21 12:13 Body Mass Index 18.3 Const: Other: Constitutional : Alert, oriented, not in distress Neck : Normal inspection, Supple Cardiovascular : RRR, S1 S2, no lower extremity edema Respiratory : Good bilateral air entry, no crackles, wheezes or rhonchi Gastrointestinal: soft, lax, Normal bowel sounds, Non tender Skin : Warm/Dry, No rash Muscular: Pain reported in her part of it and pelvic area. Neurological : Alert & oriented x3, No focal deficit Results Labs CBC and Chem 7: 05/06/21 10:11 05/06/21 10:11 Labs: Laboratory Results - last 24 hr 05/06/21 05/06/21 05/06/21 10:11 10:11 10:11 MCV 95.0 MCH 32.7 MCHC 34.4 RDW 14.6 Plt Count 235 D MPV 8.5 L Immature Gran % (Auto) 0.5 H Neut % (Auto) 83.1 H Lymph % (Auto) 3.1 L [place] % (Auto) 12.8 H Eos % (Auto) 0.0 Baso % (Auto) 0.5 Lymph # (Auto) 0.3 L [place] # (Auto) 1.4 H Eos # (Auto) 0.0 Baso # (Auto) 0.1 Abs Immat Gran (auto) 0.05 H Absolute Neuts (auto) 9.2 H Absolute Nucleated RBC 0.000 Nucleated RBC % (auto) 0.0 Anion Gap 21 H Estim Creat Clear Calc 65.3 Estimated GFR > 60 Random Glucose 193 H D Calcium 8.6 Troponin I High Sens Ethyl Alcohol < 10 05/06/21 11:06 MCV MCH MCHC RDW Plt Count MPV Immature Gran % (Auto) Neut % (Auto) Lymph % (Auto) [place] % (Auto) Eos % (Auto) Baso % (Auto) Lymph # (Auto) [place] # (Auto) Eos # (Auto) Baso # (Auto) Abs Immat Gran (auto) Absolute Neuts (auto) Absolute Nucleated RBC Nucleated RBC % (auto) Anion Gap Estim Creat Clear Calc Estimated GFR Random Glucose Calcium Troponin I High Sens 5.4 Ethyl Alcohol Imaging Radiologist's Impressions: Impressions Cervical Spine CT 05/06/21 10:00 IMPRESSION: No acute intracranial process seen. There is no acute fracture, dislocation or subluxation of cervical spine. There are degenerative disc changes with posterior spondylosis at C4-C5 disc level. Head CT 05/06/21 10:00 IMPRESSION: No acute intracranial process seen. There is no acute fracture, dislocation or subluxation of cervical spine. There are degenerative disc changes with posterior spondylosis at C4-C5 disc level. Lumbar Spine X-Ray 05/06/21 10:00 IMPRESSION: 1. 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 Otherwise unremarkable lumbar spine. 2. Posttraumatic deformity sacrum and coccyx, suggesting old healed injury. Possible old healed fractures inferior pubic rami. Hairline fracture versus artifact right lateral superior pubic ramus. 3. Recommend correlation of above findings with patient's past trauma history, current symptoms, and clinical exam. If clinically indicated, further evaluation may be performed with CT to assess for occult fracture. Sacrum and Coccyx X-Ray 05/06/21 10:00 IMPRESSION: 1. 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 Otherwise unremarkable lumbar spine. 2. Posttraumatic deformity sacrum and coccyx, suggesting old healed injury. Possible old healed fractures inferior pubic rami. Hairline fracture versus artifact right lateral superior pubic ramus. 3. Recommend correlation of above findings with patient's past trauma history, current symptoms, and clinical exam. If clinically indicated, further evaluation may be performed with CT to assess for occult fracture. Shoulder X-Ray 05/06/21 10:00 IMPRESSION: 1. Old posttraumatic deformity surgical neck left humerus. 2. Old healed fracture left posterior eighth rib. 3. No visible acute fracture or dislocation. Pelvis CT 05/06/21 11:26 IMPRESSION: Likely bilateral S2-S3 fracture deformity and and bilateral sacral hilar fractures appear acute. There is acute fracture nondisplaced right superior pubic rami. The sacral fractures can be treated with sacro plasty Old fractures involving the left superior pubic and bilateral inferior pubic rami. There is no hip joint fractures seen. There is no pubic symphysis diastases. Assessment and Plan (1) Closed fracture of single pubic ramus of pelvis: Qualifiers: Encounter type: initial encounter Laterality: right Qualified Code(s): S32.591A - Other specified fracture of right pubis, initial encounter for closed fracture Status: Acute (2) Closed sacral fracture: Qualifiers: Encounter type: initial encounter Zone of sacrum fracture: unspecified portion of sacrum Qualified Code(s): S32.10XA - Unspecified fracture of sacrum, initial encounter for closed fracture Status: Acute (3) Falls: Qualifiers: Encounter type: initial encounter Qualified Code(s): W19.XXXA - Unspecified fall, initial encounter Status: Acute A 50 years old lady with PMH of anxiety disorder, anorexia nervosa who presented to the hospital after sustaining a fall at home. Pubic rami fracture Pain management CT scan as reported To use p.o. Percocet as needed IV morphine for severe pain To check INR in the morning Keep NPO post midnight for possible sacroplasty tomorrow with Dr. Pulido In to do physical therapy after that Falls To check orthostatic pressures Seems to be mechanical in nature To do PT evaluation Leukocytosis Likely reactive from the falls No source of infection, Will monitor Anxiety Continue been Venlafaxine DVT PPX SCDs Quality Stroke Does the patient have a stroke diagnosis?: No VTE Prior VTE?: No VTE Risk Level:: Medical - low VTE Device Contraindication: N/A - Device Ordered VTE Drug Contraindication: Treatment Not Indicated
[2021-05-06 16:35] LABS: COVID-19 Test Negative (Negative); IDNOW Serial# 9DD0AD1C
[2021-05-06] MEDS: Morphine Sulfate 2 MG/ML CARTRIDGE IVPUSH ×2 (16:51→22:51)
--- NOTE | 2021-05-06 20:22 | PC.NURSE ---
pt resting in bed at the time. pt will be continued to be monitored.
[2021-05-06] MEDS: Dextrose 5 % and 0.9 % NaCl 1,000 ML 80 ML IVCONT (20:37)
[2021-05-06] MEDS: Potassium Chloride Packet 20 MEQ PACKET PO (20:37)
--- NOTE | 2021-05-06 20:47 | MHC.CM.PN ---
CM met with admitted pt. To have sacroplasty in am. Will need PT and STR. Pt would like acute rehab if possible. Pt is vet connected and has care at [facility] in [place] for PCP and Mental Health. Pt has HX of Alcoholism, Dpresiion and anorexia. Pt states does not need to meet with CARE team regarding ETOH issues at this time. Pt lives with boyfriend, Tomas Barnes ([phone]). Pt does not use DME or have any services. Will need PT evaluation prior to d/c. No referrals placed pending PT and MD evaluations. CM will follow for d/c needs.
--- NOTE | 2021-05-06 21:54 | PC.NURSE ---
report given to nurse soto. pt being transferred to unit by certified medication technician.
[2021-05-07 04:00] VITALS: BP 127/69; PULSE 74; RESP 18; TEMP 36.2; O2SAT 96
[2021-05-07] MEDS: Morphine Sulfate 2 MG/ML CARTRIDGE IVPUSH ×3 (04:48→18:07)
[2021-05-07] MEDS: HYDROcodone Bit/Acetam 5/325 TABLET 1 TAB PO ×3 (05:34→21:05)
[2021-05-07 07:02] LABS: Hematocrit 34.3 % (37-47); Hemoglobin 11.4 g/dl (12.0-16.0); Mean Corpuscular HGB Conc 33.2 g/dl (31.0-35.0); Mean Corpuscular Hemoglobin 32.9 pg (27.0-33.0); Mean Corpuscular Volume 98.8 fL (80-98); Mean Platelet Volume 9.2 fL (9.4-12.3); Platelet Count 204 X10*3/uL (160-400); Red Blood Count 3.47 X10*6/uL (4.20-5.50); Red Cell Distribution Width 14.8 % (11.0-16.0); White Blood Count 9.3 X10*3/uL (4.8-10.8)
[2021-05-07 07:15] LABS: INTERNATIONAL NORM RATIO 1.1 (0.9-1.1); Prothrombin Time 12.7 SEC (10.8-13.0)
[2021-05-07 07:22] VITALS: BP 120/71; PULSE 92; RESP 17; TEMP 36.5; O2SAT 95
[2021-05-07 07:41] LABS: Anion Gap 9 (12-20); Blood Urea Nitrogen 13 mg/dL (9-16); Calcium 8.1 mg/dL (8.4-10.2); Carbon Dioxide 23 mmol/L (22-29); Chloride 112 mmol/L (96-108); Creatinine Clr Calc Pharmacy 82.1; Estimated Glomerular Filt Rate > 60; Glucose Random 124 mg/dL (60-115); Potassium 3.7 mmol/L (3.3-5.1); Sodium 140 mmol/L (135-145)
[2021-05-07] MEDS: Venlafaxine HCl ER 37.5 MG CAP.ER.24H PO (08:35)
--- NOTE | 2021-05-07 10:15 | HO.PM.IMPN ---
Subjective Subjective Date of Service: 05/07/21 Interval History: pain Cardiovascular Cardiovascular: Reports no additional cardiovascular complaints Respiratory Respiratory: Reports no additional respiratory complaints Physical Exam Vital Signs: Vital Signs: Last Vital Signs Temp 97.7 F 05/07/21 07:22 Pulse 92 05/07/21 07:22 Resp 17 05/07/21 07:22 BP 120/71 05/07/21 07:22 Pulse Ox 95 05/07/21 07:22 Body Mass Index 18.3 General: AO X 3, no acute distress Resp: CTA bilateral CVS: S1,S2,RRR GI: soft, non tender, non distended Neuro: motor grossly intact Psych: appropriate affect Objective Data Current Medications Generic Name Dose Route Start Last Admin Trade Name Freq PRN Reason Stop Dose Admin Acetaminophen 650 mg 05/06/21 19:22 Acetaminophen 325 Mg Tablet PO Q6H PRN Pain, Mild (Pain Scale 1-3) Hydrocodone Bitart/Acetaminophen 1 tab 05/06/21 14:08 05/07/21 05:34 Hydrocodone Bit/Acetam 5/325 Tablet PO 1 tab Q6H PRN Administration pain Calcium Carbonate 1,000 mg 05/07/21 09:00 05/07/21 08:35 Calcium Carbonate 500 Mg Tablet PO Not Given DAILY SUKHJINDER Clonidine 0.2 mg 05/07/21 09:00 Clonidine 0.2 Mg Patch.Tdwk TRANSDERMA Q7D [facility] Protocol Hydroxyzine HCl 10 mg 05/06/21 19:22 Hydroxyzine Hcl 10 Mg Tablet PO BEDTIME PRN Anxiety Dextrose/Sodium Chloride 1,000 mls @ 80 mls/hr 05/06/21 19:22 05/06/21 20:37 D5ns IVCONT 80 mls/hr .[id number] SUKHJINDER Administration Morphine Sulfate 2 mg 05/06/21 16:37 05/07/21 04:48 Morphine Sulfate 2 Mg/Ml Cartridge IVPUSH 2 mg Q6H PRN Administration Pain, Severe (Pain Scale 7-10) Non-Formulary Medication 333 mg 05/06/21 21:00 Acamprosate PO TID SUKHJINDER Ondansetron HCl 4 mg 05/06/21 19:22 Ondansetron Hcl 4 Mg/2 Ml Vial IVPUSH Q8H PRN Nausea and Vomiting Pharmacy Consult 1 each 05/06/21 14:31 Consult Rx Perform Med Rec MISCELLANE ONCE PRN Consult order Potassium Chloride 20 meq 05/06/21 21:00 05/07/21 08:35 Potassium Chloride Packet 20 Meq Packet PO Not Given BID SUKHJINDER Sodium Chloride 3 ml 05/07/21 00:00 05/07/21 07:56 0.9 % Sodium Chloride Flush 3 Ml Syringe IVFLUSH Not Given QSHIFT SUKHJINDER Venlafaxine HCl 37.5 mg 05/07/21 09:00 05/07/21 08:35 Venlafaxine Hcl Er 37.5 Mg Cap.Er.24h PO 37.5 mg DAILY SUKHJINDER Administration Vitamin D 50 mcg 05/07/21 09:00 05/07/21 08:35 Cholecalciferol (Vitamin D3) 25 Mcg Tablet PO Not Given DAILY [facility] Labs CBC & Chem 7: 05/07/21 06:45 05/07/21 06:45 Labs: Laboratory Results - last 24 hr 05/06/21 05/06/21 05/06/21 10:11 10:11 10:11 WBC 11.1 H RBC 4.01 L Hgb 13.1 Hct 38.1 MCV 95.0 MCH 32.7 MCHC 34.4 RDW 14.6 Plt Count 235 D MPV 8.5 L Immature Gran % (Auto) 0.5 H Neut % (Auto) 83.1 H Lymph % (Auto) 3.1 L Lucas % (Auto) 12.8 H Eos % (Auto) 0.0 Baso % (Auto) 0.5 Lymph # (Auto) 0.3 L Lucas # (Auto) 1.4 H Eos # (Auto) 0.0 Baso # (Auto) 0.1 Abs Immat Gran (auto) 0.05 H Absolute Neuts (auto) 9.2 H Absolute Nucleated RBC 0.000 Nucleated RBC % (auto) 0.0 PT INR Sodium 139 Potassium 3.8 Chloride 102 Carbon Dioxide 20 L Anion Gap 21 H BUN 17 H Creatinine 0.73 Estim Creat Clear Calc 65.3 Estimated GFR > 60 Random Glucose 193 H D Calcium 8.6 Troponin I High Sens Ethyl Alcohol < 10 COVID-19 (TIFF) COVID-19 Clin Com 05/06/21 05/06/21 05/07/21 11:06 16:14 06:45 WBC 9.3 RBC 3.47 L Hgb 11.4 L Hct 34.3 L MCV 98.8 H MCH 32.9 MCHC 33.2 RDW 14.8 Plt Count 204 MPV 9.2 L Immature Gran % (Auto) Neut % (Auto) Lymph % (Auto) Lucas % (Auto) Eos % (Auto) Baso % (Auto) Lymph # (Auto) Lucas # (Auto) Eos # (Auto) Baso # (Auto) Abs Immat Gran (auto) Absolute Neuts (auto) Absolute Nucleated RBC 0.000 Nucleated RBC % (auto) 0.0 PT INR Sodium Potassium Chloride Carbon Dioxide Anion Gap BUN Creatinine Estim Creat Clear Calc Estimated GFR Random Glucose Calcium Troponin I High Sens 5.4 Ethyl Alcohol COVID-19 (TIFF) Negative COVID-19 Clin Com See Note 05/07/21 05/07/21 06:45 06:45 WBC RBC Hgb Hct MCV MCH MCHC RDW Plt Count MPV Immature Gran % (Auto) Neut % (Auto) Lymph % (Auto) Lucas % (Auto) Eos % (Auto) Baso % (Auto) Lymph # (Auto) Lucas # (Auto) Eos # (Auto) Baso # (Auto) Abs Immat Gran (auto) Absolute Neuts (auto) Absolute Nucleated RBC Nucleated RBC % (auto) PT 12.7 INR 1.1 Sodium 140 Potassium 3.7 Chloride 112 H Carbon Dioxide 23 Anion Gap 9 L BUN 13 Creatinine 0.58 Estim Creat Clear Calc 82.1 Estimated GFR > 60 Random Glucose 124 H D Calcium 8.1 L Troponin I High Sens Ethyl Alcohol COVID-19 (TIFF) COVID-19 Clin Com Quality Stroke Does the patient have a stroke diagnosis?: No VTE Prior VTE?: No VTE Risk Level:: Medical - low VTE Device Contraindication: N/A - Device Ordered VTE Drug Contraindication: Treatment Not Indicated Assessment and Plan (1) Closed fracture of single pubic ramus of pelvis: Status: Acute Assessment and Plan: 50F presented s/p fall complicated by pubic ramus fractures admitted for pain management pubic ramus fracture plan for sacroplasy today PT anciety clonidine, effexor alcohol dependence acamprosate
[2021-05-07 12:00] VITALS: BP 136/61; PULSE 88; RESP 18; TEMP 36.3; O2SAT 96
--- NOTE | 2021-05-07 13:08 | MHC.CM.PN ---
EMR REVIEWED, PT TO HAVE SACROPLASTY TODAY, NO PLAN FOR D/C, REFERRAL MADE FOR ACUTE REHABS PER PT REQUEST.
[2021-05-07 13:37] VITALS: BMI 18.3
[2021-05-07] MEDS: 0.9 % Sodium Chloride Flush 3 ML SYRINGE IVFLUSH (14:45)
[2021-05-07 15:17] VITALS: BP 159/83; PULSE 97; RESP 20; TEMP 36.4; O2SAT 94
[2021-05-07 19:30] VITALS: BP 136/82; PULSE 91; RESP 18; TEMP 36.3; O2SAT 94
[2021-05-07 23:16] VITALS: BP 143/76; PULSE 105; RESP 18; TEMP 36.6; O2SAT 96
[2021-05-08] VITALS (8 sets, daily range): BP systolic 117–178; BP diastolic 70–92; PULSE 81–108; RESP 12–20; TEMP 35.7–37; O2SAT 95–100
[2021-05-08] MEDS: Morphine Sulfate 2 MG/ML CARTRIDGE IVPUSH ×3 (00:01→22:11)
[2021-05-08] MEDS: 0.9 % Sodium Chloride Flush 3 ML SYRINGE IVFLUSH ×3 (01:07→15:45)
[2021-05-08] MEDS: HYDROcodone Bit/Acetam 5/325 TABLET 1 TAB PO ×3 (03:40→18:41)
[2021-05-08 07:59] LABS: Anion Gap 12 (12-20); Blood Urea Nitrogen 9 mg/dL (9-16); Calcium 8.5 mg/dL (8.4-10.2); Carbon Dioxide 22 mmol/L (22-29); Chloride 107 mmol/L (96-108); Creatinine Clr Calc Pharmacy 91.6; Estimated Glomerular Filt Rate > 60; Glucose Fasting 82 mg/dL (60-99); Magnesium 1.7 mg/dL (1.6-2.6); Potassium 3.9 mmol/L (3.3-5.1); Sodium 137 mmol/L (135-145)
--- NOTE | 2021-05-08 09:07 | HO.ANESPROP2 ---
Documented by User: Queenie Sharif 05/08/21 09:16 [facility] Active Problems Active Problems: All Active Problems (Updated 05/06/21 @ 15:16 by GEETA Baron) Closed fracture of single pubic ramus of pelvis (Acute) Closed sacral fracture (Acute) Falls (Acute) Anorexia nervosa (Acute) Past Medical History Medical History (Updated 05/08/21 @ 12:18 by Mikayla Arceo) Alcoholism Depression Fractures Hx of eating disorder Hypokalemia Rib fractures Surgical History Surgical History History of mandibular surgery Social History Social History (Updated 05/08/21 @ 12:11 by Mikayla Arceo) Household Members: Significant Other Housing: House Do you presently have visiting nurse or other home services: No Alcohol intake: current Patient Tobacco Use Status: Never used Tobacco Use of substances other than those prescribed or required for medical reasons: No Currently Displaying Signs/Symptoms of Drug Intoxication Withdrawal: No Have you been hit, kicked, punched, or otherwise hurt by someone within the past year? If so, by whom?: No Do you feel safe in your current relationship?: Yes Is there a partner from a previous relationship who is making you feel unsafe now?: No Are you made to feel afraid or neglected: No Advance Directives: Yes Advance Directives Information Provided: Yes Advance Directives on File: No Advance Directives Date on File: 05/06/21 Do you have thoughts of harming others: None Do you have a plan to hurt others: No Plan Recently lost weight without trying: Unsure Eating poorly because of decreased appetite: Yes Nutrition Risks: Anorexia, Binging/Purging and Poor intake 0-25% >4 days Patient : No : No Poor oral hygiene: No service: Yes Current occupational status: unemployed Meds Allergies Allergy/AdvReac Type Severity Reaction Status Date / Time acetaminophen [From PERCOCET] Allergy Unknown PURITIS Verified 08/28/20 07:42 oxycodone [From OXYCONTIN] Allergy Unknown ITCHING Verified 08/28/20 07:42 Active Medications: Current Medications Generic Name Dose Route Start Last Admin Trade Name Freq PRN Reason Stop Dose Admin Acetaminophen 650 mg 05/06/21 19:22 Acetaminophen 325 Mg Tablet PO Q6H PRN Pain, Mild (Pain Scale 1-3) Hydrocodone Bitart/Acetaminophen 1 tab 05/06/21 14:08 05/08/21 03:40 Hydrocodone Bit/Acetam 5/325 Tablet PO 1 tab Q6H PRN Administration pain Calcium Carbonate 1,000 mg 05/07/21 09:00 05/08/21 07:34 Calcium Carbonate 500 Mg Tablet PO Not Given DAILY [facility] Hydroxyzine HCl 10 mg 05/06/21 19:22 Hydroxyzine Hcl 10 Mg Tablet PO BEDTIME PRN Anxiety Morphine Sulfate 2 mg 05/06/21 16:37 05/08/21 07:37 Morphine Sulfate 2 Mg/Ml Cartridge IVPUSH 2 mg Q6H PRN Administration Pain, Severe (Pain Scale 7-10) Non-Formulary Medication 333 mg 05/06/21 21:00 Acamprosate PO TID [facility] Ondansetron HCl 4 mg 05/06/21 19:22 Ondansetron Hcl 4 Mg/2 Ml Vial IVPUSH Q8H PRN Nausea and Vomiting Pharmacy Consult 1 each 05/06/21 14:31 Consult Rx Perform Med Rec MISCELLANE ONCE PRN Consult order Sodium Chloride 3 ml 05/07/21 00:00 05/08/21 07:37 0.9 % Sodium Chloride Flush 3 Ml Syringe IVFLUSH 3 ml QSHIFT [facility] Administration Venlafaxine HCl 37.5 mg 05/07/21 09:00 05/08/21 07:34 Venlafaxine Hcl Er 37.5 Mg Cap.Er.24h PO Not Given DAILY [facility] Vitamin D 50 mcg 05/07/21 09:00 05/08/21 07:34 Cholecalciferol (Vitamin D3) 25 Mcg Tablet PO Not Given DAILY [facility] Home Medications Medication Instructions Recorded Confirmed Last Taken Type acamprosate 333 mg PO TID 05/06/21 05/06/21 Unknown History calcium carbonate [Calcium 500] 1,000 mg PO DAILY 05/06/21 05/06/21 Unknown History cholecalciferol (vitamin D3) 50 mcg PO DAILY 05/06/21 05/06/21 Unknown History clonidine 1 patch TRANSDERMAL QWEEK 05/06/21 05/06/21 Unknown History hydroxyzine HCl 10 mg PO BEDTIME PRN 05/06/21 05/06/21 Unknown History magnesium oxide 250 mg PO DAILY 05/06/21 05/06/21 Unknown History potassium chloride 20 meq PO BID 05/06/21 05/06/21 Unknown History triamcinolone acetonide 1 appl TOPICAL DAILY PRN 05/06/21 05/06/21 Unknown History venlafaxine 37.5 mg PO DAILY 05/06/21 05/06/21 Unknown History Exam Exam Date and Time: May 08, 2021 0907 Height,Weight and Vital Signs: Height 5 ft 2 in Weight 45.359 kg Last Vital Signs Temp 98.4 F 05/08/21 07:45 Pulse 81 05/08/21 07:45 Resp 17 05/08/21 07:45 BP 140/80 H 05/08/21 07:45 Pulse Ox 98 05/08/21 07:45 Pertinent Lab Results Pertinent Lab Results: Laboratory Tests 05/06/21 05/06/21 05/06/21 10:11 10:11 10:11 WBC 11.1 H RBC 4.01 L Hgb 13.1 Hct 38.1 MCV 95.0 MCH 32.7 MCHC 34.4 RDW 14.6 Plt Count 235 D MPV 8.5 L Immature Gran % (Auto) 0.5 H Neut % (Auto) 83.1 H Lymph % (Auto) 3.1 L [place] % (Auto) 12.8 H Eos % (Auto) 0.0 Baso % (Auto) 0.5 Lymph # (Auto) 0.3 L [place] # (Auto) 1.4 H Eos # (Auto) 0.0 Baso # (Auto) 0.1 Abs Immat Gran (auto) 0.05 H Absolute Neuts (auto) 9.2 H Absolute Nucleated RBC 0.000 Nucleated RBC % (auto) 0.0 PT INR Sodium 139 Potassium 3.8 Chloride 102 Carbon Dioxide 20 L Anion Gap 21 H BUN 17 H Creatinine 0.73 Estim Creat Clear Calc 65.3 Estimated GFR > 60 Random Glucose 193 H D Fasting Glucose Calcium 8.6 Magnesium Troponin I High Sens Ethyl Alcohol < 10 COVID-19 (TIFF) COVID-19 Clin Com 05/06/21 05/06/21 05/07/21 11:06 16:14 06:45 WBC 9.3 RBC 3.47 L Hgb 11.4 L Hct 34.3 L MCV 98.8 H MCH 32.9 MCHC 33.2 RDW 14.8 Plt Count 204 MPV 9.2 L Immature Gran % (Auto) Neut % (Auto) Lymph % (Auto) [place] % (Auto) Eos % (Auto) Baso % (Auto) Lymph # (Auto) [place] # (Auto) Eos # (Auto) Baso # (Auto) Abs Immat Gran (auto) Absolute Neuts (auto) Absolute Nucleated RBC 0.000 Nucleated RBC % (auto) 0.0 PT INR Sodium Potassium Chloride Carbon Dioxide Anion Gap BUN Creatinine Estim Creat Clear Calc Estimated GFR Random Glucose Fasting Glucose Calcium Magnesium Troponin I High Sens 5.4 Ethyl Alcohol COVID-19 (TIFF) Negative COVID-19 Clin Com See Note 05/07/21 05/07/21 05/08/21 06:45 06:45 07:02 WBC RBC Hgb Hct MCV MCH MCHC RDW Plt Count MPV Immature Gran % (Auto) Neut % (Auto) Lymph % (Auto) [place] % (Auto) Eos % (Auto) Baso % (Auto) Lymph # (Auto) [place] # (Auto) Eos # (Auto) Baso # (Auto) Abs Immat Gran (auto) Absolute Neuts (auto) Absolute Nucleated RBC Nucleated RBC % (auto) PT 12.7 INR 1.1 Sodium 140 137 Potassium 3.7 3.9 Chloride 112 H 107 Carbon Dioxide 23 22 Anion Gap 9 L 12 BUN 13 9 Creatinine 0.58 0.52 Estim Creat Clear Calc 82.1 91.6 Estimated GFR > 60 > 60 Random Glucose 124 H D Fasting Glucose 82 Calcium 8.1 L 8.5 Magnesium 1.7 Troponin I High Sens Ethyl Alcohol COVID-19 (TIFF) COVID-19 Clin Com Documented by User: Mikayla Arceo 05/08/21 12:20 HPI - Anesthesia Eval Consult details Narrative: 50 year old female patient for kyphoplasty [facility] Past Medical History Medical History (Updated 05/08/21 @ 12:18 by Mikayla Arceo) Alcoholism Depression Fractures Hx of eating disorder Hypokalemia Rib fractures Family History Family history of problems with anesthesia: No Surgical History Surgical History History of mandibular surgery History of Problems with Anesthesia: No Social History Social History (Updated 05/08/21 @ 12:11 by Mikayla Arceo) Household Members: Significant Other Housing: House Do you presently have visiting nurse or other home services: No Alcohol intake: current Patient Tobacco Use Status: Never used Tobacco Use of substances other than those prescribed or required for medical reasons: No Currently Displaying Signs/Symptoms of Drug Intoxication Withdrawal: No Have you been hit, kicked, punched, or otherwise hurt by someone within the past year? If so, by whom?: No Do you feel safe in your current relationship?: Yes Is there a partner from a previous relationship who is making you feel unsafe now?: No Are you made to feel afraid or neglected: No Advance Directives: Yes Advance Directives Information Provided: Yes Advance Directives on File: No Advance Directives Date on File: 05/06/21 Do you have thoughts of harming others: None Do you have a plan to hurt others: No Plan Recently lost weight without trying: Unsure Eating poorly because of decreased appetite: Yes Nutrition Risks: Anorexia, Binging/Purging and Poor intake 0-25% >4 days Patient : No : No Poor oral hygiene: No service: Yes Current occupational status: unemployed Meds Allergies Allergy/AdvReac Type Severity Reaction Status Date / Time acetaminophen [From PERCOCET] Allergy Unknown PURITIS Verified 08/28/20 07:42 oxycodone [From OXYCONTIN] Allergy Unknown ITCHING Verified 08/28/20 07:42 Home Medications Medication Instructions Recorded Confirmed Last Taken Type acamprosate 333 mg PO TID 05/06/21 05/06/21 Unknown History calcium carbonate [Calcium 500] 1,000 mg PO DAILY 05/06/21 05/06/21 Unknown History cholecalciferol (vitamin D3) 50 mcg PO DAILY 05/06/21 05/06/21 Unknown History clonidine 1 patch TRANSDERMAL QWEEK 05/06/21 05/06/21 Unknown History hydroxyzine HCl 10 mg PO BEDTIME PRN 05/06/21 05/06/21 Unknown History magnesium oxide 250 mg PO DAILY 05/06/21 05/06/21 Unknown History potassium chloride 20 meq PO BID 05/06/21 05/06/21 Unknown History triamcinolone acetonide 1 appl TOPICAL DAILY PRN 05/06/21 05/06/21 Unknown History venlafaxine 37.5 mg PO DAILY 05/06/21 05/06/21 Unknown History Exam Pertinent Lab Results Pertinent Lab Results: CT/CT pelvis wo con IMPRESSION: Likely bilateral S2-S3 fracture deformity and and bilateral sacral hilar fractures appear acute. There is acute fracture nondisplaced right superior pubic rami. The sacral fractures can be treated with sacro plasty Old fractures involving the left superior pubic and bilateral inferior pubic rami. There is no hip joint fractures seen. There is no pubic symphysis diastases. CT/CT head/brain wo con IMPRESSION: No acute intracranial process seen. There is acute left parietal hematoma with moderate subacute hematoma extending to the right of midline. There is no calvarial fracture. There is no acute fracture, dislocation or subluxation of cervical spine. There are degenerative disc changes with posterior spondylosis at C4-C5 disc level. Airway Mallampati Class: II TM Dist: >3cm Neck ROM: Full (But sore left side of neck) Partial: Upper and Lower Heart: RRR Lungs: CTAB Assessment and Plan Assessment Anesthesia Assessment: Anesthesia Plan Discussed and Chart Reviewed Final Anesthetic Review NPO: Yes ASA Class: III Final Preanesthetic Review: No Changes in Pt Med Stat, Meds/Allgs Chart Reviewed, Consent Obtained/Reviewed and Anes Risks/Benef Reviewed Patient Risk: Intermediate Procedure Risk: Low Assessment/Block/Sedation in SS: Assess/Block/Sedation-SS Anesthetic Plan Anesthetic Plan: MAC: Disposition: Inp. Admit - Standard Bed
--- NOTE | 2021-05-08 09:23 | HO.PM.IMPN ---
Subjective Subjective Date of Service: 05/08/21 Interval History: back pain Cardiovascular Cardiovascular: Reports no additional cardiovascular complaints Gastrointestinal Gastrointestinal: Reports no additional gastrointestinal complaints Physical Exam Vital Signs: Vital Signs: Last Vital Signs Temp 98.4 F 05/08/21 07:45 Pulse 81 05/08/21 07:45 Resp 17 05/08/21 07:45 BP 140/80 H 05/08/21 07:45 Pulse Ox 98 05/08/21 07:45 Body Mass Index 18.3 General: AO X 3, no acute distress Resp: CTA bilateral CVS: S1,S2,RRR GI: soft, non tender, non distended Neuro: motor grossly intact Psych: appropriate affect Objective Data Current Medications Generic Name Dose Route Start Last Admin Trade Name Freq PRN Reason Stop Dose Admin Acetaminophen 650 mg 05/06/21 19:22 Acetaminophen 325 Mg Tablet PO Q6H PRN Pain, Mild (Pain Scale 1-3) Hydrocodone Bitart/Acetaminophen 1 tab 05/06/21 14:08 05/08/21 03:40 Hydrocodone Bit/Acetam 5/325 Tablet PO 1 tab Q6H PRN Administration pain Calcium Carbonate 1,000 mg 05/07/21 09:00 05/08/21 07:34 Calcium Carbonate 500 Mg Tablet PO Not Given DAILY [facility] Hydroxyzine HCl 10 mg 05/06/21 19:22 Hydroxyzine Hcl 10 Mg Tablet PO BEDTIME PRN Anxiety Morphine Sulfate 2 mg 05/06/21 16:37 05/08/21 07:37 Morphine Sulfate 2 Mg/Ml Cartridge IVPUSH 2 mg Q6H PRN Administration Pain, Severe (Pain Scale 7-10) Non-Formulary Medication 333 mg 05/06/21 21:00 Acamprosate PO TID [facility] Ondansetron HCl 4 mg 05/06/21 19:22 Ondansetron Hcl 4 Mg/2 Ml Vial IVPUSH Q8H PRN Nausea and Vomiting Pharmacy Consult 1 each 05/06/21 14:31 Consult Rx Perform Med Rec MISCELLANE ONCE PRN Consult order Sodium Chloride 3 ml 05/07/21 00:00 05/08/21 07:37 0.9 % Sodium Chloride Flush 3 Ml Syringe IVFLUSH 3 ml QSHIFT [facility] Administration Venlafaxine HCl 37.5 mg 05/07/21 09:00 05/08/21 07:34 Venlafaxine Hcl Er 37.5 Mg Cap.Er.24h PO Not Given DAILY SU[facility]INDER Vitamin D 50 mcg 05/07/21 09:00 05/08/21 07:34 Cholecalciferol (Vitamin D3) 25 Mcg Tablet PO Not Given DAILY SUKHJINDER Labs CBC & Chem 7: 05/07/21 06:45 05/08/21 07:02 Labs: Laboratory Results - last 24 hr 05/08/21 07:02 Sodium 137 Potassium 3.9 Chloride 107 Carbon Dioxide 22 Anion Gap 12 BUN 9 Creatinine 0.52 Estim Creat Clear Calc 91.6 Estimated GFR > 60 Fasting Glucose 82 Calcium 8.5 Magnesium 1.7 Quality Stroke Does the patient have a stroke diagnosis?: No VTE Prior VTE?: No VTE Risk Level:: Medical - low VTE Device Contraindication: N/A - Device Ordered VTE Drug Contraindication: Treatment Not Indicated Assessment and Plan (1) Closed fracture of single pubic ramus of pelvis: Status: Acute Assessment and Plan: 50F presented s/p fall complicated by pubic ramus fractures admitted for pain management pubic ramus fracture plan for sacroplasy today (was postponed yesterday) PT/OT possible acute rehab at discharge anxiety clonidine, effexor alcohol dependence acamprosate
[2021-05-08] MEDS: Lactated Ringers 1,000 ML 50 ML IVCONT (10:15)
[2021-05-08] MEDS: iohexoL 300 MG/ML 50 ML INFUS..BTL IV (12:40)
[2021-05-08] MEDS: Lidocaine HCl 1 % MPF 5 ML VIAL SUBCUT (12:43)
[2021-05-09] VITALS: BP 134/69; PULSE 95; RESP 18; TEMP 36.7; O2SAT 96
[2021-05-09] MEDS: 0.9 % Sodium Chloride Flush 3 ML SYRINGE IVFLUSH (00:08)
[2021-05-09] MEDS: HYDROcodone Bit/Acetam 5/325 TABLET 1 TAB PO ×3 (01:32→16:50)
[2021-05-09] MEDS: hydrOXYzine HCL 10 MG TABLET PO (01:32)
[2021-05-09 04:00] VITALS: BP 142/70; PULSE 86; RESP 16; TEMP 36.6; O2SAT 98
[2021-05-09 07:23] VITALS: BP 150/78; PULSE 102; RESP 19; TEMP 36.6; O2SAT 98
[2021-05-09] MEDS: Venlafaxine HCl ER 37.5 MG CAP.ER.24H PO (07:58)
[2021-05-09] MEDS: Cholecalciferol (Vitamin D3) 25 MCG TABLET 50 MCG PO (07:58)
[2021-05-09] MEDS: Morphine Sulfate 2 MG/ML CARTRIDGE IVPUSH ×2 (08:24→14:15)
--- NOTE | 2021-05-09 09:38 | HO.PM.IMPN ---
Subjective Subjective Date of Service: 05/09/21 Interval History: pain improved Cardiovascular Cardiovascular: Reports no additional cardiovascular complaints Respiratory Respiratory: Reports no additional respiratory complaints Physical Exam Vital Signs: Vital Signs: Last Vital Signs Temp 97.8 F 05/09/21 07:23 Pulse 102 H 05/09/21 07:23 Resp 19 05/09/21 07:23 BP 150/78 H 05/09/21 07:23 Pulse Ox 98 05/09/21 07:23 Body Mass Index 18.3 General: AO X 3, no acute distress Resp: CTA bilateral CVS: S1,S2,RRR GI: soft, non tender, non distended Neuro: motor grossly intact Psych: appropriate affect Objective Data Current Medications Generic Name Dose Route Start Last Admin Trade Name Freq PRN Reason Stop Dose Admin Acetaminophen 650 mg 05/06/21 19:22 Acetaminophen 325 Mg Tablet PO Q6H PRN Pain, Mild (Pain Scale 1-3) Acetaminophen 650 mg 05/08/21 12:08 Acetaminophen 325 Mg Tablet PO ONCE PRN Pain, Mild (Pain Scale 1-3) Hydrocodone Bitart/Acetaminophen 1 tab 05/06/21 14:08 05/09/21 01:32 Hydrocodone Bit/Acetam 5/325 Tablet PO 1 tab Q6H PRN Administration pain Calcium Carbonate 1,000 mg 05/07/21 09:00 05/09/21 07:58 Calcium Carbonate 500 Mg Tablet PO 1,000 mg DAILY SUKHJINDER Administration Fentanyl 25 mcg 05/08/21 12:04 Fentanyl Citrate/Pf 100 Mcg/2 Ml Vial IVPUSH Q5M PRN Pain, Moderate (Pain Scale 4-6 Hydroxyzine HCl 10 mg 05/06/21 19:22 05/09/21 01:32 Hydroxyzine Hcl 10 Mg Tablet PO 10 mg BEDTIME PRN Administration Anxiety Morphine Sulfate 2 mg 05/06/21 16:37 05/09/21 08:24 Morphine Sulfate 2 Mg/Ml Cartridge IVPUSH 2 mg Q6H PRN Administration Pain, Severe (Pain Scale 7-10) Non-Formulary Medication 333 mg 05/06/21 21:00 Acamprosate PO TID SUKHJINDER Ondansetron HCl 4 mg 05/06/21 19:22 Ondansetron Hcl 4 Mg/2 Ml Vial IVPUSH Q8H PRN Nausea and Vomiting Ondansetron HCl 4 mg 05/08/21 12:04 Ondansetron Hcl 4 Mg/2 Ml Vial IVPUSH ONCE PRN Nausea and Vomiting Pharmacy Consult 1 each 05/06/21 14:31 Consult Rx Perform Med Rec MISCELLANE ONCE PRN Consult order Sodium Chloride 3 ml 05/07/21 00:00 05/09/21 08:03 0.9 % Sodium Chloride Flush 3 Ml Syringe IVFLUSH Not Given QSHIFT SUKHJINDER Venlafaxine HCl 37.5 mg 05/07/21 09:00 05/09/21 07:58 Venlafaxine Hcl Er 37.5 Mg Cap.Er.24h PO 37.5 mg DAILY [facility]INDER Administration Vitamin D 50 mcg 05/07/21 09:00 05/09/21 07:58 Cholecalciferol (Vitamin D3) 25 Mcg Tablet PO 50 mcg DAILY SUKHJINDER Administration Labs CBC & Chem 7: 05/07/21 06:45 05/08/21 07:02 Quality Stroke Does the patient have a stroke diagnosis?: No VTE Prior VTE?: No VTE Risk Level:: Medical - low VTE Device Contraindication: N/A - Device Ordered VTE Drug Contraindication: Treatment Not Indicated Assessment and Plan (1) Closed fracture of single pubic ramus of pelvis: Status: Acute Assessment and Plan: 50F presented s/p fall complicated by pubic ramus fractures admitted for pain management pubic ramus fracture s/p sacroplasty 05/08/21 PT/OT possible acute rehab at discharge anxiety clonidine, effexor alcohol dependence acamprosate
[2021-05-09 12:00] VITALS: BP 123/67; PULSE 98; RESP 17; TEMP 36.1; O2SAT 97
[2021-05-09 12:04] VITALS: O2SAT 98
--- NOTE | 2021-05-09 13:27 | MHC.CLN ---
NUTRITION FOLLOW UP DIET ORDER=REGULAR, SUPPLEMENT ENSURE 240 CC TWO TIMES DAILY PER PATIENT PREFERENCE. ATE 100% AT DINNER YESTERDAY. NO NEW NUTRITION INTERVENTIONS AT THIS TIME.
--- NOTE | 2021-05-09 15:49 | MHC.CM.PN ---
Addendum entered by Katia Patel RN 05/09/21 16:46: TRANSPORT ARRANGED W/CLONARESH FROM [place] FOR 5:30PM SHOES SALESPERSON VIA ALERT TO [facility]. Original Note: PT TO TRANSFER TO [facility] [place] TO ARRANGE TRANSPORTATION SHERRI/LIZZIE [phone]. [facility] HAS NOT RECEIVED AUTH AT TIME OF THIS NOTE, [place] DOES NOT DO AUT[place] OVER WEEKEND SO PT MAY BE HERE UNTIL Wednesday05/12/21.
[2021-05-09 16:00] VITALS: BP 120/65; PULSE 106; RESP 15; TEMP 36; O2SAT 93
--- NOTE | 2021-05-09 16:33 | PM.DS ---
DS: Providers Provider Date of Service: 05/09/21 Date of admission: 05/06/21 16:24 Primary care physician: BOUBACAR VALENTINO MD DS: Diagnosis Discharge Diagnosis (1) Closed fracture of single pubic ramus of pelvis: Status: Acute DS: Medications Discharge Medications Home Medications: Home Medications Medication Instructions Recorded Confirmed acamprosate 333 mg PO TID 05/06/21 05/06/21 calcium carbonate [Calcium 500] 1,000 mg PO DAILY 05/06/21 05/06/21 cholecalciferol (vitamin D3) 50 mcg PO DAILY 05/06/21 05/06/21 hydroxyzine HCl 10 mg PO BEDTIME PRN 05/06/21 05/06/21 magnesium oxide 250 mg PO DAILY 05/06/21 05/06/21 triamcinolone acetonide 1 appl TOPICAL DAILY PRN 05/06/21 05/06/21 venlafaxine 37.5 mg PO DAILY 05/06/21 05/06/21 Previous Rx's Medication Instructions Recorded acetaminophen 650 mg PO Q6H PRN #0 tab 05/09/21 hydrocodone-acetaminophen 1 tab PO Q6H PRN #10 tab 05/09/21 DS: Summary Hospital Course Hospital Course: Patient was admitted for pain control for bilateral S2-S3 acute fracture and bilateral sacral hilar fractures as well as acute fracture of the right superior pubic rami. Patient was given IV morphine to good effect. Consultation with Interventional Radiology was had and patient underwent kyphoplasty Patient experienced significant pain relief. She was evaluated by Physical therapy who recommended longterm facility for short-term rehab. Patient takes is expected to require less than 30 days at rehab. Time Spent with Patient Time attestation: Total time spent providing and/or coordinating discharge services: Discharge coordination time: Greater than 30 minutes Quality: Stroke Does the patient have a stroke diagnosis?: No Physical Exam Vital Signs: Vital Signs: Last Vital Signs Temp 96.8 F 05/09/21 16:00 Pulse 106 H 05/09/21 16:00 Resp 15 05/09/21 16:00 BP 120/65 05/09/21 16:00 Pulse Ox 93 05/09/21 16:00 Body Mass Index 18.3 General: AO X 3, no acute distress Resp: CTA bilateral CVS: S1,S2,RRR GI: soft, non tender, non distended Neuro: motor grossly intact Psych: appropriate affect Discharge Plan Discharge Patient Disposition: Xfer SNF Discharge Diagnosis: sacral fracture Referrals: Boubacar Valentino MD [Primary Care Provider] - 1 Week Discharge Medications: New acetaminophen 325 mg Tablet 650 mg PO Q6H PRN (Reason: Pain, Mild (Pain Scale 1-3)) Qty: 0 RF: 0 hydrocodone-acetaminophen 5-325 mg Tablet 1 tab PO Q6H PRN (Reason: pain) Qty: 10 RF: 0 Continued venlafaxine 37.5 mg Capsule,Extended Release 24hr 37.5 mg PO DAILY RF: 0 triamcinolone acetonide 0.5 % Cream 1 appl TOPICAL DAILY PRN (Reason: Skin Irritation) RF: 0 calcium carbonate [Calcium 500] 500 mg calcium (1,250 mg) Tablet 1,000 mg PO DAILY RF: 0 hydroxyzine HCl 10 mg Tablet 10 mg PO BEDTIME PRN (Reason: Anxiety) RF: 0 magnesium oxide 250 mg magnesium Tablet 250 mg PO DAILY RF: 0 acamprosate 333 mg Tablet,Delayed Release (Dr/Ec) 333 mg PO TID RF: 0 cholecalciferol (vitamin D3) 50 mcg (2,000 unit) Tablet 50 mcg PO DAILY RF: 0 Discontinued clonidine 0.2 mg/24 hr Patch Weekly 1 patch TRANSDERMAL QWEEK RF: 0 potassium chloride 20 mEq Packet 20 meq PO BID RF: 0 Discharge Orders: Discharge Order (Routine); Ordered 05/09/21 Ordered By: Adam Qureshi Diet: advance to usual diet Activity on Discharge: As tolerated Stand Alone Forms: Patient Portal Discharge page Care Plan Goals: rehab Health Concerns: sacral fracture Plan of Treatment: rehab Assessment: see above
[2021-05-09 17:09] LABS: COVID-19 Test Negative (Negative)
== END 2021-05-09 17:26 | disposition skilled nursing facility (03) | DRG 516 ==
LOC: HO.ED 15:16 → HO.EDOVER 16:33 → HO.S3 19:12
PROVIDERS: Physician Assistant; Radiology Diagnostic Radiology; Admitting Provider Student in an Organized Health Care Education/Training Program; Emergency Provider Emergency Medicine Emergency Medical Services; PCP Internal Medicine; Visit Provider Internal Medicine
PROC: 0QS13ZZ Reposition Sacrum, Percutaneous Approach (ICD-10-PCS; principal; 2021-05-08 11:00)
DX: S32.10XA Unspecified fracture of sacrum, initial encounter for closed fracture (principal); S32.591A Other specified fracture of right pubis, initial encounter for closed fracture; F50.00 Anorexia nervosa, unspecified; Z68.1 Body mass index [BMI] 19.9 or less, adult; Z20.822 Contact with and (suspected) exposure to COVID-19; R29.6 Repeated falls; D72.829 Elevated white blood cell count, unspecified; F41.9 Anxiety disorder, unspecified; F10.20 Alcohol dependence, uncomplicated; Z91.81 History of falling; W10.9XXA Fall (on) (from) unspecified stairs and steps, initial encounter; Y93.9 Activity, unspecified; Y92.009 Unspecified place in unspecified non-institutional (private) residence as the place of occurrence of the external cause; Y99.9 Unspecified external cause status; Z88.5 Allergy status to narcotic agent; Z88.6 Allergy status to analgesic agent; Z79.899 Other long term (current) drug therapy
CPT/HCPCS: 22514; 36415; 70450; 72100; 72125; 72131; 72192; 72220; 73030; 80048; 82077; 83735; 84484; 85025; 85027; 85610; 87635; 93005; 97162; 97166; 99285; J0171; J0330; J0461; J1100; J1170; J1200; J1885; J2250; J2270; J2370; J2405; J3010; Q9967

== ENCOUNTER 2021-07-01 12:34 | Emergency (ER) | payer OTHER, SELFPAY ==
[2021-07-01 13:26] VITALS: BP 152/100; PULSE 106; RESP 18; TEMP 36.8; O2SAT 98; BMI 19.5
== END 2021-07-01 15:55 | disposition left against medical advice (07) ==
PROVIDERS: Emergency Provider Emergency Medicine
DX: R41.82 Altered mental status, unspecified (principal)
CPT/HCPCS: 99281; 99282

== ENCOUNTER 2022-06-18 13:25 | Emergency (ER) | payer OTHER, SELFPAY ==
[2022-06-18 13:27] VITALS: BP 130/85; PULSE 95; RESP 16; TEMP 36.3; O2SAT 96; BMI 18.3
--- NOTE | 2022-06-18 13:46 | ED_ITS ---
HPI - Dizziness General Chief Complaint: Dizziness Stated Complaint: SOB, Dizzy Time Seen by Provider: 06/18/22 13:44 Source: patient Mode of arrival: ambulatory Limitations: no limitations History of Present Illness HPI Narrative: Patient with history of eating disorder anorexia neuro the drinks Ensure comes here for 4- 5 days of weakness dizziness increased anxiety tingling no nausea no vomiting no abdominal pain lost about 10 lb in last few months history of hyperkalemia patient does have a history of alcohol in last drink was 1 week ago feel very depressed at home denies any suicidal ideation Related Data Home Medications Medication Instructions Recorded Confirmed acamprosate 333 mg tablet,delayed 333 mg PO TID 05/06/21 05/06/21 release calcium carbonate 500 mg calcium 1,000 mg PO DAILY 05/06/21 05/06/21 (1,250 mg) tablet (Calcium 500) cholecalciferol (vitamin D3) 50 50 mcg PO DAILY 05/06/21 05/06/21 mcg (2,000 unit) tablet hydroxyzine HCl 10 mg tablet 10 mg PO BEDTIME PRN Anxiety 05/06/21 05/06/21 magnesium oxide 250 mg PO DAILY 05/06/21 05/06/21 triamcinolone acetonide 0.5 % 1 appl topical DAILY PRN Skin 05/06/21 05/06/21 topical cream Irritation venlafaxine 37.5 mg 37.5 mg PO DAILY 05/06/21 05/06/21 capsule,extended release 24 hr Previous Rx's Medication Instructions Recorded acetaminophen 325 mg tablet 650 mg PO Q6H PRN Pain, Mild (Pain 05/09/21 Scale 1-3) #0 tabs hydrocodone 5 mg-acetaminophen 325 1 tab PO Q6H PRN pain #10 tabs 05/09/21 mg tablet lorazepam 0.5 mg tablet (Ativan) 0.5 mg PO BEDTIME PRN anxiety #20 06/18/22 tabs Allergies Allergy/AdvReac Type Severity Reaction Status Date / Time oxycodone [From OXYCONTIN] Allergy Unknown ITCHING Verified 08/28/20 07:42 Review of Systems Review of Systems: Yes all other systems are reviewed and are negative PMFSH Past Medical History Medical History Alcoholism Depression Fractures Hx of eating disorder Hypokalemia Rib fractures Surgical History History of mandibular surgery Social History Social History Household Members: Significant Other Housing: House Do you presently have visiting nurse or other home services: No Alcohol intake: former Patient Tobacco Use Status: Never used Tobacco Use of substances other than those prescribed or required for medical reasons: No Substance Use Type: Marijuana Substance Use Type Other:: medical marijuana card; edibles Substance Use Frequency: Occasionally Advance Directives: No Advance Directives Information Provided: No Advance Directives Date on File: 05/06/21 service: Yes Current occupational status: unemployed Physical Exam Vital Signs: Vital Signs: Last Vital Signs Temp 98.3 F 06/18/22 14:53 Pulse 76 06/18/22 14:53 Resp 17 06/18/22 14:53 BP 129/76 06/18/22 14:53 Pulse Ox 97 06/18/22 14:53 O2 Del Method 06/18/22 14:53 BMI result Body Mass Index 18.3 Appearance: Alert. Oriented X3. No acute distress. Thin emaciated Eyes: No pallor ENT: Pharynx normal. Oral Mucosa moist Neck: Normal inspection. Neck supple. CVS: Normal heart rate and rhythm. Pulses normal. Respiratory: No respiratory distress. Equal air entry bilateral, no wheezing/rales/rhonchi Abdomen: Soft and nontender. Bowel sounds are present, no mass palpable, no CVA tenderness Skin: Skin warm and dry. Normal skin color. Normal skin turgor. Extremities: No lower extremity edema. No calf tenderness Neuro: Oriented X 3. No motor deficit. MDM - Dizziness MDM Narrative Medical decision making narrative: Patient with anorexia with anxiety stable labs slightly alkalotic improved after IV hydration will discharge patient home Lab Data Attestation: I reviewed the patient's lab results. Result diagrams: 06/18/22 14:02 06/18/22 14:02 Labs: Lab Results 06/18/22 06/18/22 06/18/22 Range/Units 13:59 14:02 14:02 WBC 5.6 (4.8-10.8) X10*3/uL RBC 4.79 (4.20-5.50) X10*6/uL Hgb 15.2 (12.0-16.0) g/dl Hct 45.2 (37.0-47.0) % MCV 94.4 (80.0-98.0) fL MCH 31.7 (27.0-33.0) pg MCHC 33.6 (31.0-35.0) g/dl RDW 13.4 (11.0-16.0) % Plt Count 303 (160-400) X10*3/uL MPV 9.1 L (9.4-12.3) fL Immature Gran % (Auto) 0.4 (0.0-0.4) % Neut % (Auto) 68.7 (45-73) % Lymph % (Auto) 20.8 (20-40) % Evangeline % (Auto) 8.8 (2-11) % Eos % (Auto) 0.4 (0-4) % Baso % (Auto) 0.9 (0-2) % Lymph # (Auto) 1.2 (1.2-4.9) X10*3/uL Evangeline # (Auto) 0.5 (0.1-1.2) X10*3/uL Eos # (Auto) 0.0 (0.0-0.4) X10*3/uL Baso # (Auto) 0.1 (0.0-0.2) X10*3/uL Abs Immat Gran (auto) 0.02 (0.00-0.03) X10*3/uL Absolute Neuts (auto) 3.9 (2.0-8.3) x10*3/uL Absolute Nucleated RBC 0.000 (0.0-0.012) X10*3/uL Nucleated RBC % (auto) 0.0 (0.0-0.2) /100WBC Sodium 138 (135-145) mmol/L Potassium 4.0 (3.3-5.1) mmol/L Chloride 92 L (96-108) mmol/L Carbon Dioxide 32 H (22-29) mmol/L Anion Gap 18 (12-20) BUN 10 (9-16) mg/dL Creatinine 0.85 (0.5-1.4) mg/dL Estim Creat Clear Calc 54.7 Estimated GFR > 60 Random Glucose 126 H (60-115) mg/dL Calcium 10.2 D (8.4-10.2) mg/dL Magnesium 1.6 (1.6-2.6) mg/dL Total Bilirubin 0.5 (0.0-1.0) mg/dL AST 38 H (5-31) U/L ALT 20 (0-31) U/L Alkaline Phosphatase 86 (39-117) U/L Total Protein 7.4 (6.5-8.0) g/dL Albumin 4.1 (3.5-5.0) g/dL Urine Color YELLOW Urine Appearance HAZY Urine pH 7.0 (5.0-8.0) Ur Specific [place] <= 1.005 (1.005-1.025) Urine Protein NEG (NEG-TRACE) MG/DL Urine Glucose (UA) NEG (NEG) MG/DL Urine Ketones NEG (NEG) MG/DL Urine Blood NEG (NEG) Urine Nitrite NEG (NEG) Ur Leukocyte Esterase NEG (NEG) Discharge Plan Discharge Clinical Impression: Anorexia nervosa, Anxiety Patient Disposition: Home, Self-Care Instructions: Anorexia Nervosa (ED), Anxiety (ED) Additional Instructions: Drink plenty of fluids Follow-up with your therapist Ativan 0.5 mg in the evening as needed for anxiety and sleep Prescriptions: New lorazepam [Ativan] 0.5 mg tablet 0.5 mg PO BEDTIME PRN (Reason: anxiety) Qty: 20 0RF No Action venlafaxine 37.5 mg Capsule,Extended Release 24hr 37.5 mg PO DAILY triamcinolone acetonide 0.5 % Cream 1 appl TOPICAL DAILY PRN (Reason: Skin Irritation) calcium carbonate [Calcium 500] 500 mg calcium (1,250 mg) Tablet 1,000 mg PO DAILY hydroxyzine HCl 10 mg Tablet 10 mg PO BEDTIME PRN (Reason: Anxiety) magnesium oxide 250 mg magnesium Tablet 250 mg PO DAILY acamprosate 333 mg Tablet,Delayed Release (Dr/Ec) 333 mg PO TID cholecalciferol (vitamin D3) 50 mcg (2,000 unit) Tablet 50 mcg PO DAILY acetaminophen 325 mg Tablet 650 mg PO Q6H PRN (Reason: Pain, Mild (Pain Scale 1-3)) Qty: 0 0RF hydrocodone-acetaminophen 5-325 mg Tablet 1 tab PO Q6H PRN (Reason: pain) Qty: 10 0RF Interventions: ED Discharge Assessment Last Done: 06/18/22 15:57 Discharge Date/Time: 06/18/22 15:57
[2022-06-18] MEDS: 0.9 % Sodium Chloride 1,000 ML 999 ML IV (14:07)
[2022-06-18 14:08] LABS: MANUAL DIFF FLAG NO
[2022-06-18 14:10] LABS: Basophils Absolute Auto 0.1 X10*3/uL (0.0-0.2); Basophils Percent Auto 0.9 % (0-2); Eosinophils Percent Auto 0.4 % (0-4); Hematocrit 45.2 % (37.0-47.0); Hemoglobin 15.2 g/dl (12.0-16.0); Imm Gran Abs Auto 0.02 X10*3/uL (0.00-0.03); Imm Gran Pct Auto 0.4 % (0.0-0.4); Lymphocytes Absolute Auto 1.2 X10*3/uL (1.2-4.9); Lymphocytes Percent Auto 20.8 % (20-40); Mean Corpuscular HGB Conc 33.6 g/dl (31.0-35.0); Mean Corpuscular Hemoglobin 31.7 pg (27.0-33.0); Mean Corpuscular Volume 94.4 fL (80.0-98.0); Mean Platelet Volume 9.1 fL (9.4-12.3); Monocytes Absolute Auto 0.5 X10*3/uL (0.1-1.2); Monocytes Percent Auto 8.8 % (2-11); Neutrophils Absolute Auto 3.9 x10*3/uL (2.0-8.3); Neutrophils Percent Auto 68.7 % (45-73); Platelet Count 303 X10*3/uL (160-400); Red Blood Count 4.79 X10*6/uL (4.20-5.50); Red Cell Distribution Width 13.4 % (11.0-16.0); White Blood Count 5.6 X10*3/uL (4.8-10.8)
[2022-06-18 14:11] LABS: Appearance Urine HAZY; Color Urine YELLOW; Glucose Urine UA NEG (NEG); Leukocyte Esterase Urine NEG (NEG); Nitrite Urine NEG (NEG); Specific Gravity - Urine <= 1.005 (1.005-1.025); Urine Blood NEG (NEG); Urine Ketones NEG (NEG); Urine Protein NEG (NEG-TRACE)
[2022-06-18 14:25] LABS: Alanine Aminotransferase 20 U/L (0-31); Albumin Level 4.1 g/dL (3.5-5.0); Alkaline Phosphatase 86 U/L (39-117); Anion Gap 18 (12-20); Aspartate Amino Transferase 38 U/L (5-31); Bilirubin Total 0.5 mg/dL (0.0-1.0); Blood Urea Nitrogen 10 mg/dL (9-16); Calcium 10.2 mg/dL (8.4-10.2); Carbon Dioxide 32 mmol/L (22-29); Chloride 92 mmol/L (96-108); Creatinine Clr Calc Pharmacy 54.7; Estimated Glomerular Filt Rate > 60; Glucose Random 126 mg/dL (60-115); Magnesium 1.6 mg/dL (1.6-2.6); Sodium 138 mmol/L (135-145); Total Protein 7.4 g/dL (6.5-8.0)
[2022-06-18 14:53] VITALS: BP 129/76; PULSE 76; RESP 17; TEMP 36.8; O2SAT 97
[2022-06-18] MEDS: LORazepam 1 MG TABLET PO (15:54)
== END 2022-06-18 15:57 | disposition home or self-care (01) ==
PROVIDERS: Emergency Provider Internal Medicine; PCP Internal Medicine
DX: F41.9 Anxiety disorder, unspecified (principal); F50.00 Anorexia nervosa, unspecified; Z68.1 Body mass index [BMI] 19.9 or less, adult; F32.A Depression, unspecified; F10.20 Alcohol dependence, uncomplicated
CPT/HCPCS: 36415; 80053; 81003; 83735; 85025; 96360; 99283; 99284; 99285

== ENCOUNTER 2022-12-03 09:02 | Emergency (ER) | payer OTHER, SELFPAY ==
--- NOTE | ~2022-12-03 | CT_ITS ---
EXAMINATION: CT PELVIS WITHOUT CONTRAST CLINICAL INFORMATION: History of pain after fall. History of sacral kyphoplasty. COMPARISON: CT images of sacrum from 05/08/2021. TECHNIQUE: Noncontrast multidetector CT imaging examination of the pelvis is performed. Axial images are presented at 0.6 mm and 3 mm slice thickness. Axial images and multiplanar reformatted images are reviewed. This CT examination was performed using dose optimization techniques as appropriate, variously including the following: *Automated exposure control *Adjustment of mA and/or kV according to patient size (this includes techniques or standardized protocols for targeted exams where dose is matched to indication/reason for exam; i.e. extremities or head) *Use of iterative reconstruction technique DLP: For total dose of all CT exams, please refer to report from head CT. The DLP for the pelvis was 130.73 mGycm after the topogram was obtained. FINDINGS: Bones are osteopenic. Old healed fractures of bilateral pubic rami, left iliac bone and sacrum. There has been injection of cement into the S1 vertebra. No extrusion of cement into sacral neural foramina. Sacroiliac joints are intact. Alignment is normal at the hips and pubic symphysis. Acute comminuted, moderately displaced fracture of the right iliac bone is present and there is mild hemorrhage and edematous thickening of the right iliacus and right gluteus minimus and medius muscles. Patchy hemorrhage/hematoma is present in subcutaneous tissues of the left lower back. Urinary bladder, uterus and adnexa are unremarkable. No pelvic free fluid or lymphadenopathy. No dilated loops of bowel within the examined [id number]. CT/CT pelvis wo IV con IMPRESSION: * Old healed fractures of bilateral pubic rami, sacrum and left iliac bone. * Acute moderately displaced comminuted fracture of the right iliac bone. * Patchy hyperdense hemorrhage is present in subcutaneous tissues of the partially visualized left lower back.
--- NOTE | ~2022-12-03 | CT_ITS ---
EXAMINATION: CT CHEST WITH IV CONTRAST CT ABDOMEN AND PELVIS WITH IV CONTRAST CLINICAL INFORMATION: Trauma COMPARISON: CT chest 03/25/2020, CT pelvis 05/03/2023 TECHNIQUE: CT chest, abdomen, and pelvis are performed using 85 mL Omnipaque 350 intravenous contrast. No oral contrast. Coronal and sagittal reformatted images are generated on the CT workstation and uploaded to PACS. In addition, maximum intensity projection images through the lungs are also obtained on the CT workstation and uploaded to PACS. DLP: 146 mGy-cm (chest) DLP: 282 mGy-cm (abdomen/pelvis) FINDINGS: CT CHEST LUNGS: No pneumothorax. No lobar or segmental airspace consolidation or groundglass opacity. There is linear scarring versus disc atelectasis left medial base and right posterior base. Central airways are clear. MEDIASTINUM: CT chest reviewed intra-departmentally. The heart is normal in size. No pericardial effusion. No aneurysmal enlargement aorta or dissection. There is blurring around the proximal to mid ascending aorta which is believed to be related to motion, similar to prior CT imaging noncontrast. There is no mediastinal hematoma or fluid. 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 There is diffuse circumferential thickening of the thoracic and aorta with small sliding hiatal hernia. Similar findings suggested previously. CORONARY ARTERY CALCIFICATION: None visualized on this study. PLEURA: There is no pleural effusion. No pleural mass or thickening. AXILLA: No lymphadenopathy. OSSEOUS STRUCTURES: Old compression deformity mid thoracic spine similar to prior CT 03/25/2020. Multiple old healed left posterior lateral rib fractures similar to prior CT. There are acute appearing fractures involving the right lateral 4th, 5th, and 6th ribs. Right lateral 7th rib fracture acute versus old. FINDINGS: CT ABDOMEN AND PELVIS WITH CONTRAST LIVER, GALLBLADDER, AND BILIARY TREE: The liver is normal in size, shape, and attenuation. No focal hepatic lesion or biliary ductal dilatation is present. The gallbladder is unremarkable with no evidence of radiopaque gallstones, gallbladder wall thickening, or obvious pericholecystic inflammatory changes. PANCREAS: Unremarkable. SPLEEN: Unremarkable. ADRENAL GLANDS: Unremarkable. KIDNEYS AND URETERS: Kidneys are normal in size and enhance symmetrically. No perinephric stranding. No hydronephrosis. Probable small cyst lower pole right kidney and punctate cyst lower pole left kidney. No additional imaging follow-up recommended. BLADDER: Punctate gas bubble nondependent bladder possibly related to catheterization. Clinically correlate. Otherwise unremarkable. GASTROINTESTINAL TRACT: No bowel obstruction or focal inflammatory changes. No free air or pneumatosis. No ascites. ABDOMINAL WALL: No significant hernia is appreciated. LYMPH NODES: No lymphadenopathy. VASCULAR: Atherosclerotic changes abdominal aorta. No aneurysmal enlargement. No extravasation. No dissection. PELVIC VISCERA: Unremarkable. OSSEOUS STRUCTURES: Prior S1 sacral plasty. Old bilateral fractures pubic rami and left iliac wing fractures. The hips and acetabular are intact. The SI joints and pubis show no diastases. There is acute comminuted fracture involving the right iliac wing with hematoma on both the medial and lateral sides. No active extravasation. The, and an external iliac vessels are unremarkable. CT/CT abdomen pelvis w IV con IMPRESSION: CHEST: -Probable motion artifact around proximal to mid ascending aorta rather than intramural hematoma. No aneurysmal enlargement or dissection. No mediastinal hematoma. If there is still high concern for occult chest trauma, then further imaging with CT EKG gating at outside facility may be considered. -Diffuse abnormal thoracic esophagus with circumferential thickening and small sliding hiatal hernia. Finding likely chronic. If not previously evaluated, further nonemergent GI evaluation including endoscopy recommended. -No pneumothorax, airspace consolidation, or effusion. -Acute right fourth, fifth, and sixth rib fractures. Old healed fractures left posterior lateral ribs and mid thoracic vertebral compression. ABDOMEN AND PELVIS: -Abdominal organs unremarkable. No acute traumatic abnormality. -No free air, ascites, or fluid collection. -Acute comminuted fracture right sacral wing. Old sacral Kyphoplasty and old pubic rami and left iliac healed fractures. -Soft tissue hematoma around acute right iliac fracture. No active bleeding. Abdominal aorta and iliac vasculature unremarkable.
--- NOTE | ~2022-12-03 | XR_ITS ---
EXAMINATION: BILATERAL HUMERI CLINICAL INFORMATION: Pain status post fall COMPARISON: May 06, 2021 TECHNIQUE: AP and lateral views of both humeri FINDINGS: Left humerus: Patient is status post old healed proximal left humeral neck fracture. No dislocation or acute fracture is evident. Acromioclavicular joint appears unremarkable. No widening of the coracoclavicular space is seen. Old healed left rib fractures are evident. Right humerus: 2 views of the right humerus do not demonstrate any evidence of acute fracture or dislocation. Acromioclavicular joint appears unremarkable. No widening of the coracoclavicular space is seen. No elbow effusion is identified. XR/XR humerus RT IMPRESSION: No acute fracture, dislocation, or elbow effusion involving the left and right humeri. Old healed left proximal humerus fracture.
--- NOTE | ~2022-12-03 | XR_ITS ---
EXAMINATION: BILATERAL HUMERI CLINICAL INFORMATION: Pain status post fall COMPARISON: May 06, 2021 TECHNIQUE: AP and lateral views of both humeri FINDINGS: Left humerus: Patient is status post old healed proximal left humeral neck fracture. No dislocation or acute fracture is evident. Acromioclavicular joint appears unremarkable. No widening of the coracoclavicular space is seen. Old healed left rib fractures are evident. Right humerus: 2 views of the right humerus do not demonstrate any evidence of acute fracture or dislocation. Acromioclavicular joint appears unremarkable. No widening of the coracoclavicular space is seen. No elbow effusion is identified. XR/XR humerus LT IMPRESSION: No acute fracture, dislocation, or elbow effusion involving the left and right humeri. Old healed left proximal humerus fracture.
--- NOTE | ~2022-12-03 | CT_ITS ---
EXAMINATION: CT HEAD W/O IV CONTRAST CT FACIAL BONES WITHOUT IV CONTRAST CT CERVICAL SPINE W/O IV CONTRAST CLINICAL INFORMATION: 52-year-old female with history of fall, head strike, trauma, pain. COMPARISON: 05/06/2021 TECHNIQUE: Head - Contiguous axial imaging of the head was performed from the skull base to the vertex without the administration of intravenous contrast, and axial images are reconstructed at 2 mm and 5 mm slice thickness. Cervical spine and facial bones - Volumetric, helical CT acquisitions of the cervical spine and facial bones obtained without contrast; in addition to the standard set of axial images, multiplanar reformatted images were provided in the coronal and sagittal imaging planes. This CT examination was performed using dose optimization techniques as appropriate, variously including the following: *Automated exposure control *Adjustment of mA and/or kV according to patient size (this includes techniques or standardized protocols for targeted exams where dose is matched to indication/reason for exam; i.e. extremities or head) *Use of iterative reconstruction technique DLP: 1581 mGy-cm (total, for CT exams of the head, cervical spine, facial bones and pelvis) FINDINGS: HEAD: The patient was moving and therefore some of the images were repeated. Pascual to white matter differentiation is preserved. No evidence of intracranial hemorrhage, major vascular territory infarction, focal mass effect or midline shift. The sulci and basilar cisterns are unremarkable. The ventricles have normal size and configuration. No hydrocephalus or extra-axial fluid collections. The calvarium is intact and the mastoid air cells and middle ear cavities are clear. A hyperdense crescentic shaped occipital scalp hematoma measures approximately 4.5 cm transverse and approximately 1.2 cm AP. Mild soft tissue gas at site of hematoma from tissue laceration. FACIAL BONES: The globes and orbital nowak, including lamina papyracea, are intact. The orbital apex, optic canals, and retrobulbar fat planes are normal. The maxilla, mandible and temporomandibular joints are intact. Chronic osteoarthrosis of temporomandibular joints.. There is an acute nondisplaced fracture of the anterior nasal bones. The pterygoid plates and zygomatic arches are normal. Mild mucosal thickening of inferior maxillary sinuses. Otherwise, the paranasal sinuses are well-aerated and the ostiomeatal units are patent. No air-fluid levels in the paranasal sinuses. CERVICAL SPINE: The skull base, C1 and C2 lateral masses and atlantodental articulation are intact. The vertebral body heights are maintained. No fractures in the anterior or posterior elements. No prevertebral soft tissue swelling. Chronic moderate degenerative loss of disc space, osteophyte formation and minimal retrolisthesis at C4-C5. These findings are unchanged compared to 05/06/2021. No osseous stenosis of the spinal canal or neural foramina. No evidence of pneumothorax at either lung apex. Mild pleural-based scarring at apices. Thyroid gland is atrophied. CT/CT cervical spine wo IV con IMPRESSION: * No intracranial hemorrhage or other acute intracranial pathology. * No fracture or traumatic subluxation in the cervical spine. * Chronic moderate degenerative disc disease at C4-C5. * Occipital scalp hematoma is present. No calvarial fracture. * Acute, nondisplaced fracture of anterior nasal bones.
--- NOTE | ~2022-12-03 | XR_ITS ---
EXAMINATION: XR CHEST CLINICAL INFORMATION: Status post fall COMPARISON: March 25, 2020 TECHNIQUE: AP portable view of the chest was obtained. FINDINGS: There is no evidence of acute parenchymal disease, pneumothorax, or pleural effusion. Heart normal size. No evidence of pulmonary edema. Discoid scarring seen left lung base. Old healed left rib fractures are evident. There are either acute or recent fractures involving the right fourth, fifth, and sixth ribs as well as old healed fracture of the right ninth rib. Old healed proximal left humeral fracture evident. XR/XR chest 1V IMPRESSION: No acute parenchymal disease. What appear to be acute fractures of the right fourth through sixth ribs. Old bilateral healed rib fractures and left proximal humeral fracture.
[2022-12-03 09:10] VITALS: BP 99/65; PULSE 90; O2SAT 94
[2022-12-03 09:20] VITALS: BP 94/59; PULSE 91; RESP 16; O2SAT 93; BMI 17.0
--- NOTE | 2022-12-03 09:32 | ECG_ITS ---
Test Reason : fall Blood Pressure : / mmHG Vent. Rate : 087 BPM Atrial Rate : 087 BPM P-R Int : 160 ms QRS Dur : 102 ms QT Int : 512 ms P-R-T Axes : 069 055 078 degrees QTc Int : 616 ms Normal sinus rhythm Nonspecific ST abnormality Prolonged QT Abnormal ECG When compared with ECG of 06-MAY-2021 10:01, QT has lengthened Referred By: Teresa Arcos Electronically Signed By:LEYLA PATEL MD
--- NOTE | 2022-12-03 09:34 | ED.FALL ---
HPI - Fall General Chief Complaint: Fall Stated Complaint: ETOH USE, 3 FOOT FALL HIP/PELVIC PAIN PER EMS Time Seen by Provider: 12/03/22 09:27 Source: patient, EMS and old records reviewed Mode of arrival: EMS Limitations: no limitations History of Present Illness HPI Narrative: 52-year-old female with history of alcoholism, anorexia, recurring falls, history of bilateral sacral fractures status post kyphoplasty in April of 2021 who presents to the ER for evaluation of right hip pain and left arm pain after a fall this morning. Patient reports she was carrying a basket of laundry up from the basement when she got lightheaded and tripped and fell. She hit her face on the stairs, fell onto her right hip and then fell down 5 stairs. She denies losing consciousness. Boyfriend heard her fall and called 911. She was not able to get up on her own. She is not able to move the right leg. She sustained a bloody nose. She has left upper arm pain and right hip pain. She is not on anticoagulation. She states she drank 3 beers yesterday but none today. She did not eat or drink anything yet today. She states prior to yesterday she last drank on Wednesday. she knows she is not supposed to drink alcohol but still struggles with her alcoholism per her report. complaint: fall Onset (ago): hour(s) (1) Fall from: standing Fall witnessed: no Place fall occurred: home Loss of consciousness: unsure Prolonged down time: no Symptoms prior to fall: lightheadedness Context: tripped/slipped, alcohol use and history of frequent falls Location of injury: face and pelvis Location of injury - extremities: left: arm and right: thigh Severity: moderate Severity scale (1-10): 7 Quality: sharp and aching Associated symptoms (after fall): headache and unable to walk Related Data Home Medications Medication Instructions Recorded Confirmed acamprosate 333 mg tablet,delayed 333 mg PO TID 05/06/21 12/03/22 release cholecalciferol (vitamin D3) 50 50 mcg PO DAILY 05/06/21 12/03/22 mcg (2,000 unit) tablet hydroxyzine HCl 10 mg tablet 10 mg PO BEDTIME PRN Anxiety 05/06/21 12/03/22 calcium carbonate 500 mg calcium 1,000 mg PO DAILY 12/03/22 12/03/22 (1,250 mg) tablet magnesium oxide 420 mg tablet 420 mg PO DAILY 12/03/22 12/03/22 mirtazapine 15 mg tablet 15 mg PO BEDTIME 12/03/22 12/03/22 naltrexone 50 mg tablet 25 mg PO DAILY 12/03/22 12/03/22 olanzapine 5 mg tablet 5 mg PO BEDTIME 12/03/22 12/03/22 potassium chloride 20 mEq oral 20 meq PO DAILY 12/03/22 12/03/22 packet Allergies Allergy/AdvReac Type Severity Reaction Status Date / Time oxycodone [From OXYCONTIN] Allergy Unknown ITCHING Verified 12/03/22 09:27 Review of Systems Review of Systems: Yes all other systems are reviewed and are negative PMFSH Past Medical History Medical History Alcoholism Depression Fractures Hx of eating disorder Hypokalemia Rib fractures Surgical History History of mandibular surgery Social History Social History Household Members: Significant Other Housing: House Do you presently have visiting nurse or other home services: No Alcohol intake: current Alcohol intake frequency: 3 or more drinks per day Alcohol type: beer Patient Tobacco Use Status: Never used Tobacco Smoked in Last 30 Days: No Use of substances other than those prescribed or required for medical reasons: No Substance Use Type: Marijuana Advance Directives: No Advance Directives Information Provided: No Advance Directives Date on File: 05/06/21 service: Yes Current occupational status: unemployed Physical Exam Vital Signs: Vital Signs: Last Vital Signs Temp 98.5 F 12/03/22 15:49 Pulse 101 H 12/03/22 15:49 Resp 14 12/03/22 15:49 BP 93/58 L 12/03/22 15:49 Pulse Ox 93 12/03/22 15:49 O2 Del Method 12/03/22 15:49 BMI result Body Mass Index 17.0 Appearance: Alert. Oriented X3. Thin, frail woman, appears older than stated age Head/face: normocephalic, ecchymosis and dried blood on the nose, no gross deformity. no orbital swelling or ecchymosis,. Eyes: Pupils equal, round and reactive to light. EOMI. ENT: Pharynx normal. Neck: Cervical collar in place. CVS: Normal heart rate and rhythm. Pulses normal. Respiratory: No respiratory distress. Breath sounds normal. Abdomen: Thin, Soft and nontender. +BS x4 Skin: Skin warm and dry. Normal skin color. Normal skin turgor. No rashes. Extremities: Right hip tenderness, unable to range at all. no shortening or external rotation. nontender left hip with normal ROM. No lower extremity edema. Left proximal humerus tenderness Neuro: Oriented X 3. Slow to respond but answers questions appropriately. Course Course Course Narrative: 82-year-old female with a history of anorexia frequent falls, alcoholism, history bilateral sacral fracture status post sacroplasty in the past who presents to the ER for evaluation of a fall down 5 stairs. Facial trauma, head trauma, tenderness and limited range of motion of the right hip. CT scans were ordered. On arrival to the ER she has a soft blood pressure, she reports this is her baseline. She is warm and well perfused, oriented x3. Will check lab workup, give IV fluids. She has not eat or drink anything yet today. Suspect she may be clinically dehydrated. Reevaluation(s) Reevaluation #1: 11:02 - Lactic acid elevated at 4.1 upon review this appears to be chronic. Most likely related to alcoholic ketoacidosis, poor p.o. intake, dehydration. No evidence of infection at this time. She does have an elevated white blood cell count of 16,000 however there is no identifiable source of infection at this time. This could be a stress reaction from her fall. Will straight cath for urine. She remains afebrile. Reevaluation #2: 12:10 - Dry DT pelvis With old healed fractures of the bilateral pubic rami, sacrum and left iliac bone. There is a new, acute and moderately displaced comminuted fracture of the right iliac bone. There is patchy hyperdense hemorrhage in the subcu tissues of the partially visualized left lower back. Given trauma, will get dedicated trauma CT scans with contrast evaluate for further hemorrhage or injury. Will include the chest. Lactic acid remains elevated, without evidence of infection. Most likely due to starvation ketosis and alcohol abuse. Urinalysis is negative for infection. BP soft but stable. Continues to be afebrile. Not septic. K 2.6 - given 6- meQ KCl orally. Reevaluation #3: 15:00 - CT scan showing acute rib fractures sugars on the right side 4, 5, 6. Old fractures of the left posterior lateral ribs and mid thoracic vertebral compression. There is also probable motion artifact around the proximal to mid ascending aorta verses intramural hematoma. No aneurysmal enlargement or dissection. No mediastinal hematoma. There is no acute free air, ascites or fluid collection in the pelvis. Again seen acute comminuted right sacral wing fracture. There is soft tissue hematoma around the right iliac fracture. No active bleeding or after extravasation of dye. Given multiple trauma will reach out to [facility] [place] for transfer. Low-dose fentanyl ordered for pain control. BP stable low 100s. Additional Reevaluation(s): 16:20 - spoke with Dr. Fam in the ER at [facility] [place] who accepts. Medications Administered Discontinued Medications Generic Name Dose Route Start Last Admin Trade Name Freq PRN Reason Stop Dose Admin Fentanyl 25 mcg 12/03/22 13:59 12/03/22 14:08 Fentanyl Citrate/Pf 100 Mcg/2 Ml Vial IVPUSH 12/03/22 14:00 25 mcg ONCE ONE Administration Protocol Sodium Chloride 1,000 mls @ 999 mls/hr 12/03/22 09:45 12/03/22 10:41 Ns IVCONT 12/03/22 10:45 Infused .Q1H1M SUKHJINDER Infusion Sodium Chloride 1,000 mls @ 999 mls/hr 12/03/22 11:15 12/03/22 12:51 Ns IVCONT 12/03/22 12:15 Infused .Q1H1M SUKHJINDER Infusion Iohexol 100 ml 12/03/22 13:45 12/03/22 13:46 Iohexol 350 Mg/Ml 100 Ml Infus..Btl IV 12/03/22 13:46 85 ml ONCE ONE Administration Ondansetron HCl 4 mg 12/03/22 10:36 12/03/22 10:41 Ondansetron Hcl 4 Mg/2 Ml Vial IVPUSH 12/03/22 10:37 4 mg ONCE ONE Administration Procedures Laceration Laceration 1: Site: scalp Size (cm): 5 Description: linear Depth: involves muscle layer Pre-repair: wound explored and irrigated extensively Skin layer closed with: other (lizet) Number of sutures: 11 Medical Decision Making Differential Diagnosis Differential Diagnoses: The differential diagnosis associated with the presentation includes Multiple trauma, nasal bone fracture, ICH, other facial bone fracture, rib fracture, pulmonary contusion, mediastinal hematoma, dissection, splenic injury, liver injury, hip fracture, sacral fracture, humerus fracture, other intra-abdominal or intrathoracic trauma. Admission/Observation Consideration of admission/observation: Escalation of care including admission/observation considered unable to manage multiple trauma with possible intramural hematoma of the aorta - transfer to acute trauma center Consult Healthcare Provider Management of the patient was discussed with: Service Delivery Management Consultant LINDA Per Dr. Goodman from Orthopedics Lab Data MDM Lab Attestation statement: I reviewed the patient's lab results. Leukocytosis noted, most likely a stress reaction. Could be also due to splenic injury, ETOH level elevated. LFTs elevated most likely due to mild alcoholic transaminitis. Normal coags. 12/03/22 10:04 12/03/22 10:03 Labs: Lab Results 12/03/22 12/03/22 12/03/22 Range/Units 10:02 10:03 10:03 WBC (4.8-10.8) X10*3/uL RBC (4.20-5.50) X10*6/uL Hgb (12.0-16.0) g/dl Hct (37.0-47.0) % MCV (80.0-98.0) fL MCH (27.0-33.0) pg MCHC (31.0-35.0) g/dl RDW (11.0-16.0) % Plt Count (160-400) X10*3/uL MPV (9.4-12.3) fL Immature Gran % (Auto) (0.0-0.4) % Neut % (Auto) (45-73) % Lymph % (Auto) (20-40) % [place] % (Auto) (2-11) % Eos % (Auto) (0-4) % Baso % (Auto) (0-2) % Lymph # (Auto) (1.2-4.9) X10*3/uL [place] # (Auto) (0.1-1.2) X10*3/uL Eos # (Auto) (0.0-0.4) X10*3/uL Baso # (Auto) (0.0-0.2) X10*3/uL Abs Immat Gran (auto) (0.00-0.03) X10*3/uL Absolute Neuts (auto) (2.0-8.3) x10*3/uL Absolute Nucleated RBC (0.0-0.012) X10*3/uL Nucleated RBC % (auto) (0.0-0.2) /100WBC PT 10.6 (10.0-13.1) SEC INR 0.9 (0.9-1.1) APTT 24.8 L (26.0-36.4) SEC Sodium 131 L (135-145) mmol/L Potassium 2.6 L D (3.3-5.1) mmol/L Chloride 78 L (96-108) mmol/L Carbon Dioxide 35 H (22-29) mmol/L Anion Gap 21 H (12-20) BUN 7 L (9-16) mg/dL Creatinine 0.81 (0.5-1.4) mg/dL Estim Creat Clear Calc 53.5 Estimated GFR > 60 Random Glucose 133 H (60-115) mg/dL Lactic Acid (0.5-2.0) mmol/L Lactic Acid F/U @ 2Hr (0.5-2.0) mmol/L Lactic Acid F/U @ 4Hr (0.5-2.0) mmol/L Calcium 8.2 L D (8.4-10.2) mg/dL Magnesium 2.3 (1.6-2.6) mg/dL Total Bilirubin 0.3 (0.0-1.0) mg/dL Direct Bilirubin < 0.2 (0.0-0.5) mg/dL AST 336 H (5-31) U/L ALT 88 H (0-31) U/L Alkaline Phosphatase 92 (39-117) U/L Troponin I High Sens (<3.5-17.0) ng/L Total Protein 5.8 L (6.5-8.0) g/dL Albumin 3.2 L (3.5-5.0) g/dL Urine Color Urine Appearance Urine pH (5.0-9.0) Ur Specific Mitchell (1.005-1.025) Urine Protein (Neg-Trace) mg/dL Urine Glucose (UA) (Negative) mg/dL Urine Ketones (Negative) mg/dL Urine Blood (Negative) Urine Nitrite (Negative) Ur Leukocyte Esterase (Negative) Urine Opiates Screen (Not Detect) Urine Fentanyl Screen (Not Detect) Ur Barbiturates Screen (Not Detect) Ur Phencyclidine Scrn (Not Detect) Ur Amphetamines Screen (Not Detect) U Benzodiazepines Scrn (Not Detect) Urine Cocaine Screen (Not Detect) U Marijuana (THC) Screen (Not Detect) Ethyl Alcohol 214 mg/dL COVID-19 (TIFF) (Negative) COVID-19 Clin Com 12/03/22 12/03/22 12/03/22 Range/Units 10:04 10:08 10:08 WBC 16.0 H (4.8-10.8) X10*3/uL RBC 4.40 (4.20-5.50) X10*6/uL Hgb 14.1 (12.0-16.0) g/dl Hct 39.8 (37.0-47.0) % MCV 90.5 (80.0-98.0) fL MCH 32.0 (27.0-33.0) pg MCHC 35.4 H (31.0-35.0) g/dl RDW 13.1 (11.0-16.0) % Plt Count 269 (160-400) X10*3/uL MPV 9.4 (9.4-12.3) fL Immature Gran % (Auto) 0.8 H (0.0-0.4) % Neut % (Auto) 79.2 H (45-73) % Lymph % (Auto) 11.4 L (20-40) % [place] % (Auto) 7.8 (2-11) % Eos % (Auto) 0.1 (0-4) % Baso % (Auto) 0.7 (0-2) % Lymph # (Auto) 1.8 (1.2-4.9) X10*3/uL [place] # (Auto) 1.2 (0.1-1.2) X10*3/uL Eos # (Auto) 0.0 (0.0-0.4) X10*3/uL Baso # (Auto) 0.1 (0.0-0.2) X10*3/uL Abs Immat Gran (auto) 0.13 H (0.00-0.03) X10*3/uL Absolute Neuts (auto) 12.7 H (2.0-8.3) x10*3/uL Absolute Nucleated RBC 0.000 (0.0-0.012) X10*3/uL Nucleated RBC % (auto) 0.0 (0.0-0.2) /100WBC PT (10.0-13.1) SEC INR (0.9-1.1) APTT (26.0-36.4) SEC Sodium (135-145) mmol/L Potassium (3.3-5.1) mmol/L Chloride (96-108) mmol/L Carbon Dioxide (22-29) mmol/L Anion Gap (12-20) BUN (9-16) mg/dL Creatinine (0.5-1.4) mg/dL Estim Creat Clear Calc Estimated GFR Random Glucose (60-115) mg/dL Lactic Acid 4.1 H* (0.5-2.0) mmol/L Lactic Acid F/U @ 2Hr (0.5-2.0) mmol/L Lactic Acid F/U @ 4Hr (0.5-2.0) mmol/L Calcium (8.4-10.2) mg/dL Magnesium (1.6-2.6) mg/dL Total Bilirubin (0.0-1.0) mg/dL Direct Bilirubin (0.0-0.5) mg/dL AST (5-31) U/L ALT (0-31) U/L Alkaline Phosphatase (39-117) U/L Troponin I High Sens (<3.5-17.0) ng/L Total Protein (6.5-8.0) g/dL Albumin (3.5-5.0) g/dL Urine Color Urine Appearance Urine pH (5.0-9.0) Ur Specific Mitchell (1.005-1.025) Urine Protein (Neg-Trace) mg/dL Urine Glucose (UA) (Negative) mg/dL Urine Ketones (Negative) mg/dL Urine Blood (Negative) Urine Nitrite (Negative) Ur Leukocyte Esterase (Negative) Urine Opiates Screen (Not Detect) Urine Fentanyl Screen (Not Detect) Ur Barbiturates Screen (Not Detect) Ur Phencyclidine Scrn (Not Detect) Ur Amphetamines Screen (Not Detect) U Benzodiazepines Scrn (Not Detect) Urine Cocaine Screen (Not Detect) U Marijuana (THC) Screen (Not Detect) Ethyl Alcohol mg/dL COVID-19 (TIFF) Negative (Negative) COVID-19 Clin Com See Note 12/03/22 12/03/22 12/03/22 Range/Units 10:14 11:57 11:57 WBC (4.8-10.8) X10*3/uL RBC (4.20-5.50) X10*6/uL Hgb (12.0-16.0) g/dl Hct (37.0-47.0) % MCV (80.0-98.0) fL MCH (27.0-33.0) pg MCHC (31.0-35.0) g/dl RDW (11.0-16.0) % Plt Count (160-400) X10*3/uL MPV (9.4-12.3) fL Immature Gran % (Auto) (0.0-0.4) % Neut % (Auto) (45-73) % Lymph % (Auto) (20-40) % [place] % (Auto) (2-11) % Eos % (Auto) (0-4) % Baso % (Auto) (0-2) % Lymph # (Auto) (1.2-4.9) X10*3/uL [place] # (Auto) (0.1-1.2) X10*3/uL Eos # (Auto) (0.0-0.4) X10*3/uL Baso # (Auto) (0.0-0.2) X10*3/uL Abs Immat Gran (auto) (0.00-0.03) X10*3/uL Absolute Neuts (auto) (2.0-8.3) x10*3/uL Absolute Nucleated RBC (0.0-0.012) X10*3/uL Nucleated RBC % (auto) (0.0-0.2) /100WBC PT (10.0-13.1) SEC INR (0.9-1.1) APTT (26.0-36.4) SEC Sodium (135-145) mmol/L Potassium (3.3-5.1) mmol/L Chloride (96-108) mmol/L Carbon Dioxide (22-29) mmol/L Anion Gap (12-20) BUN (9-16) mg/dL Creatinine (0.5-1.4) mg/dL Estim Creat Clear Calc Estimated GFR Random Glucose (60-115) mg/dL Lactic Acid (0.5-2.0) mmol/L Lactic Acid F/U @ 2Hr (0.5-2.0) mmol/L Lactic Acid F/U @ 4Hr (0.5-2.0) mmol/L Calcium (8.4-10.2) mg/dL Magnesium (1.6-2.6) mg/dL Total Bilirubin (0.0-1.0) mg/dL Direct Bilirubin (0.0-0.5) mg/dL AST (5-31) U/L ALT (0-31) U/L Alkaline Phosphatase (39-117) U/L Troponin I High Sens 4.7 (<3.5-17.0) ng/L Total Protein (6.5-8.0) g/dL Albumin (3.5-5.0) g/dL Urine Color Yellow Urine Appearance Clear Urine pH 8.0 (5.0-9.0) Ur Specific Mitchell <= 1.005 (1.005-1.025) Urine Protein Negative (Neg-Trace) mg/dL Urine Glucose (UA) Negative (Negative) mg/dL Urine Ketones Negative (Negative) mg/dL Urine Blood Negative (Negative) Urine Nitrite Negative (Negative) Ur Leukocyte Esterase Negative (Negative) Urine Opiates Screen Not Detected (Not Detect) Urine Fentanyl Screen Not Detected (Not Detect) Ur Barbiturates Screen Not Detected (Not Detect) Ur Phencyclidine Scrn Not Detected (Not Detect) Ur Amphetamines Screen Not Detected (Not Detect) U Benzodiazepines Scrn Not Detected (Not Detect) Urine Cocaine Screen Not Detected (Not Detect) U Marijuana (THC) Screen POSITIVE H (Not Detect) Ethyl Alcohol mg/dL COVID-19 (TIFF) (Negative) COVID-19 Clin Com 12/03/22 12/03/22 Range/Units 12:33 15:05 WBC (4.8-10.8) X10*3/uL RBC (4.20-5.50) X10*6/uL Hgb (12.0-16.0) g/dl Hct (37.0-47.0) % MCV (80.0-98.0) fL MCH (27.0-33.0) pg MCHC (31.0-35.0) g/dl RDW (11.0-16.0) % Plt Count (160-400) X10*3/uL MPV (9.4-12.3) fL Immature Gran % (Auto) (0.0-0.4) % Neut % (Auto) (45-73) % Lymph % (Auto) (20-40) % [place] % (Auto) (2-11) % Eos % (Auto) (0-4) % Baso % (Auto) (0-2) % Lymph # (Auto) (1.2-4.9) X10*3/uL [place] # (Auto) (0.1-1.2) X10*3/uL Eos # (Auto) (0.0-0.4) X10*3/uL Baso # (Auto) (0.0-0.2) X10*3/uL Abs Immat Gran (auto) (0.00-0.03) X10*3/uL Absolute Neuts (auto) (2.0-8.3) x10*3/uL Absolute Nucleated RBC (0.0-0.012) X10*3/uL Nucleated RBC % (auto) (0.0-0.2) /100WBC PT (10.0-13.1) SEC INR (0.9-1.1) APTT (26.0-36.4) SEC Sodium (135-145) mmol/L Potassium (3.3-5.1) mmol/L Chloride (96-108) mmol/L Carbon Dioxide (22-29) mmol/L Anion Gap (12-20) BUN (9-16) mg/dL Creatinine (0.5-1.4) mg/dL Estim Creat Clear Calc Estimated GFR Random Glucose (60-115) mg/dL Lactic Acid (0.5-2.0) mmol/L Lactic Acid F/U @ 2Hr 3.6 H* (0.5-2.0) mmol/L Lactic Acid F/U @ 4Hr 3.3 H* (0.5-2.0) mmol/L Calcium (8.4-10.2) mg/dL Magnesium (1.6-2.6) mg/dL Total Bilirubin (0.0-1.0) mg/dL Direct Bilirubin (0.0-0.5) mg/dL AST (5-31) U/L ALT (0-31) U/L Alkaline Phosphatase (39-117) U/L Troponin I High Sens (<3.5-17.0) ng/L Total Protein (6.5-8.0) g/dL Albumin (3.5-5.0) g/dL Urine Color Urine Appearance Urine pH (5.0-9.0) Ur Specific Mitchell (1.005-1.025) Urine Protein (Neg-Trace) mg/dL Urine Glucose (UA) (Negative) mg/dL Urine Ketones (Negative) mg/dL Urine Blood (Negative) Urine Nitrite (Negative) Ur Leukocyte Esterase (Negative) Urine Opiates Screen (Not Detect) Urine Fentanyl Screen (Not Detect) Ur Barbiturates Screen (Not Detect) Ur Phencyclidine Scrn (Not Detect) Ur Amphetamines Screen (Not Detect) U Benzodiazepines Scrn (Not Detect) Urine Cocaine Screen (Not Detect) U Marijuana (THC) Screen (Not Detect) Ethyl Alcohol mg/dL COVID-19 (TIFF) (Negative) COVID-19 Clin Com Independent Interpretation I performed an independent interpretation of an: EKG, Plain X-Ray and CT Scan Interpretation: EKG with normal sinus rhythm, ventricular rate 87 beats per minute, normal AR interval, prolonged QTC, no ST segment elevations or depressions. Humerus x-rays reviewed, old fracture on the left side visualized. No acute fracture. Chest x-ray reviewed, no focal infiltrate or effusion. CT scans of head, neck, chest and abdomen were reviewed. Noted rib fractures, sacral fracture, no free air or fluid in the pelvis. Radiology Impression Discussion of test interpretation with radiology: I have reviewed the radiologist's reading. Radiologist Impression: IMPRESSION: CHEST: -Probable motion artifact around proximal to mid ascending aorta rather than intramural hematoma. No aneurysmal enlargement or dissection. No mediastinal hematoma. If there is still high concern for occult chest trauma, then further imaging with CT EKG gating at outside facility may be considered. ? -Diffuse abnormal thoracic esophagus with circumferential thickening and small sliding hiatal hernia. Finding likely chronic. If not previously evaluated, further nonemergent GI evaluation including endoscopy recommended. ? -No pneumothorax, airspace consolidation, or effusion. ? -Acute right fourth, fifth, and sixth rib fractures. Old healed fractures left posterior lateral ribs and mid thoracic vertebral compression. ? ? ABDOMEN AND PELVIS: -Abdominal organs unremarkable. No acute traumatic abnormality. ? -No free air, ascites, or fluid collection. ? -Acute comminuted fracture right sacral wing. Old sacral Kyphoplasty and old pubic rami and left iliac healed fractures. ? -Soft tissue hematoma around acute right iliac fracture. No active bleeding. Abdominal aorta and iliac vasculature unremarkable. Independent Historian Clinical information obtained from an independent historian. History obtained from or confirmed by: EMS External Record Review External record reviewed: Office record, Outpatient record, Prior outpatient labs and Prior outpatient radiology Prescription Management I considered prescription management with: Pain Medication and Antibiotic Chronic Conditions Patient?s care impacted by: Other (alcoholism, anorexa) Social Determinants Patient?s care significantly limited by Social Determinants of Health including: Alcoholism and drug addiction in family Critical Care Time Critical Care Time Critical Care Time: Yes Total Critical Care Time: 58 Attestation: I have personally provided critical care time exclusive of time spent on separately billable procedures. Time includes review of lab data, radiology results, discussion with consultants, and monitoring for potential decompensation. Intervention performed as documented. Discharge Plan Discharge Clinical Impression: Multiple fractures of ribs, Closed sacral fracture, Fall, Hematoma, Fracture of nasal bone, Alcohol intoxication, Acute hypokalemia Patient Disposition: [facility] Transfer Details: [facility] [place] Medical Prescriptions: No Action hydroxyzine HCl 10 mg Tablet 10 mg PO BEDTIME PRN (Reason: Anxiety) acamprosate 333 mg Tablet,Delayed Release (Dr/Ec) 333 mg PO TID cholecalciferol (vitamin D3) 50 mcg (2,000 unit) Tablet 50 mcg PO DAILY calcium carbonate [Calcium 500] 500 mg calcium (1,250 mg) Tablet 1,000 mg PO DAILY magnesium oxide 420 mg Tablet 420 mg PO DAILY naltrexone 50 mg Tablet 25 mg PO DAILY olanzapine 5 mg Tablet 5 mg PO BEDTIME potassium chloride 20 mEq Packet 20 meq PO DAILY mirtazapine 15 mg Tablet 15 mg PO BEDTIME
[2022-12-03] MEDS: 0.9 % Sodium Chloride 1,000 ML 999 ML IVCONT ×2 (09:37→11:47)
[2022-12-03 10:10] LABS: MANUAL DIFF FLAG NO
[2022-12-03 10:17] LABS: Basophils Absolute Auto 0.1 X10*3/uL (0.0-0.2); Basophils Percent Auto 0.7 % (0-2); Eosinophils Percent Auto 0.1 % (0-4); Hematocrit 39.8 % (37.0-47.0); Hemoglobin 14.1 g/dl (12.0-16.0); Imm Gran Abs Auto 0.13 X10*3/uL (0.00-0.03); Imm Gran Pct Auto 0.8 % (0.0-0.4); Lymphocytes Absolute Auto 1.8 X10*3/uL (1.2-4.9); Lymphocytes Percent Auto 11.4 % (20-40); Mean Corpuscular HGB Conc 35.4 g/dl (31.0-35.0); Mean Corpuscular Volume 90.5 fL (80.0-98.0); Mean Platelet Volume 9.4 fL (9.4-12.3); Monocytes Absolute Auto 1.2 X10*3/uL (0.1-1.2); Monocytes Percent Auto 7.8 % (2-11); Neutrophils Absolute Auto 12.7 x10*3/uL (2.0-8.3); Neutrophils Percent Auto 79.2 % (45-73); Platelet Count 269 X10*3/uL (160-400); Red Cell Distribution Width 13.1 % (11.0-16.0)
[2022-12-03 10:24] LABS: INTERNATIONAL NORM RATIO 0.9 (0.9-1.1); Prothrombin Time 10.6 SEC (10.0-13.1)
[2022-12-03 10:27] LABS: Partial Thromboplastin Time 24.8 SEC (26.0-36.4)
[2022-12-03] MEDS: ondansetron HCL 4 MG/2 ML VIAL IVPUSH (10:41)
[2022-12-03 10:53] LABS: COVID-19 Test Negative (Negative); IDNOW Serial# 9DB6401D
[2022-12-03 11:01] LABS: Lactic Acid 4.1 mmol/L (0.5-2.0)
[2022-12-03 11:02] LABS: Ethanol 214 mg/dL
[2022-12-03 11:02] LABS: Troponin-I High Sensitivity 4.7 ng/L (<3.5-17.0)
[2022-12-03 11:10] LABS: Alanine Aminotransferase 88 U/L (0-31); Albumin Level 3.2 g/dL (3.5-5.0); Alkaline Phosphatase 92 U/L (39-117); Aspartate Amino Transferase 336 U/L (5-31); Bilirubin Direct < 0.2 mg/dL (0.0-0.5); Bilirubin Total 0.3 mg/dL (0.0-1.0); Blood Urea Nitrogen 7 mg/dL (9-16); Calcium 8.2 mg/dL (8.4-10.2); Creatinine Clr Calc Pharmacy 53.5; Estimated Glomerular Filt Rate > 60; Glucose Random 133 mg/dL (60-115); Magnesium 2.3 mg/dL (1.6-2.6); Total Protein 5.8 g/dL (6.5-8.0)
[2022-12-03 11:28] LABS: Anion Gap 21 (12-20); Carbon Dioxide 35 mmol/L (22-29); Chloride 78 mmol/L (96-108); Potassium 2.6 mmol/L (3.3-5.1); Sodium 131 mmol/L (135-145)
[2022-12-03 12:06] LABS: Appearance Urine Clear; Color Urine Yellow; Glucose Urine UA Negative (Negative); Leukocyte Esterase Urine Negative (Negative); Nitrite Urine Negative (Negative); Specific Gravity - Urine <= 1.005 (1.005-1.025); Urine Blood Negative (Negative); Urine Ketones Negative (Negative); Urine Protein Negative (Neg-Trace)
[2022-12-03 12:14] VITALS: BP 109/66; PULSE 90; RESP 18; TEMP 37.1; O2SAT 95
[2022-12-03 12:16] LABS: Amphetamine Screen Urine Not Detected (Not Detect); Barbiturates, Urine Not Detected (Not Detect); Benzodiazepines Screen Urine Not Detected (Not Detect); Cannabinoid Screen Urine POSITIVE (Not Detect); Cocaine Screen Urine Not Detected (Not Detect); Fentanyl, urine Not Detected (Not Detect); Opiate Screen Urine Not Detected (Not Detect); Phencyclidine Screen Urine Not Detected (Not Detect)
[2022-12-03 12:20] LABS: Reflex Lactate? Lactic Acid Added
[2022-12-03 13:00] LABS: ~Lactic Acid-LAB USE ONLY 3.6 mmol/L (0.5-2.0)
[2022-12-03] MEDS: iohexoL 350 MG/ML 100 ML INFUS..BTL IV (13:46)
[2022-12-03 13:57] VITALS: BP 112/66; PULSE 100; RESP 18; O2SAT 96
[2022-12-03] MEDS: fentaNYL citrate/PF 100 MCG/2 ML VIAL 25 MCG IVPUSH (14:08)
[2022-12-03 14:45] LABS: Reflex Lactate? 2 Y
[2022-12-03 15:24] LABS: ~Lactic Acid-LAB USE ONLY 3.3 mmol/L (0.5-2.0)
[2022-12-03 15:49] VITALS: BP 93/58; PULSE 101; RESP 14; TEMP 36.9; O2SAT 93
--- NOTE | 2022-12-03 15:59 | PHA.MEDREC ---
Pharmacy Consult ? Medication Reconciliation Pharmacy has completed the medication reconciliation. List is a combination of what the pt reported [facility] The pt states she still takes Campral, desite it not recently being filled.
[2022-12-03] MEDS: Potassium Chloride ER 20 MEQ TAB.ER.PRT PO (16:42)
[2022-12-03] MEDS: Potassium Chloride ER 20 MEQ TAB.ER.PRT 40 MEQ PO (16:42)
--- NOTE | 2022-12-03 16:48 | MHC.EDTECH ---
pt will be transferred to [facility] ed to ed.Provider is Dr Goodrich. Thaddeus will be grabbing the pt around 1700 BLS.
--- NOTE | 2022-12-03 17:13 | PC.NURSE ---
patient alert, oriented x4. able to make needs known. reports pain to the right hip. given pain medication as ordered, with + effect. SBP in the 90s, Provider aware.
== END 2022-12-03 17:15 | disposition short-term general hospital (02) ==
PROVIDERS: Physician Assistant; Emergency Provider Emergency Medicine Emergency Medical Services; PCP Internal Medicine
DX: S01.01XA Laceration without foreign body of scalp, initial encounter (principal); S22.43XA Multiple fractures of ribs, bilateral, initial encounter for closed fracture; S02.2XXA Fracture of nasal bones, initial encounter for closed fracture; S06.2XAA Diffuse traumatic brain injury with loss of consciousness status unknown, initial encounter; S32.10XA Unspecified fracture of sacrum, initial encounter for closed fracture; E87.6 Hypokalemia; F10.129 Alcohol abuse with intoxication, unspecified; F12.90 Cannabis use, unspecified, uncomplicated; R51.9 Headache, unspecified; M54.2 Cervicalgia; M54.50 Low back pain, unspecified; R07.89 Other chest pain; R06.02 Shortness of breath; M79.602 Pain in left arm; M79.601 Pain in right arm; R10.2 Pelvic and perineal pain; M79.605 Pain in left leg; M79.604 Pain in right leg; W10.9XXA Fall (on) (from) unspecified stairs and steps, initial encounter; Y93.9 Activity, unspecified; Y90.7 Blood alcohol level of 200-239 mg/100 ml; Y92.009 Unspecified place in unspecified non-institutional (private) residence as the place of occurrence of the external cause; Y99.9 Unspecified external cause status; Z20.822 Contact with and (suspected) exposure to COVID-19; Z20.828 Contact with and (suspected) exposure to other viral communicable diseases; Z79.899 Other long term (current) drug therapy; Z91.81 History of falling
CPT/HCPCS: 12032; 36415; 51702; 70450; 70486; 71045; 71260; 72125; 72192; 73060; 74177; 80048; 80076; 80307; 81003; 82077; 83605; 83735; 84484; 85025; 85610; 85730; 87040; 87635; 93005; 96361; 96374; 96375; 99285; J2405; J3010; Q9967

== ENCOUNTER 2023-12-03 11:31 | Outpatient (REF) | payer OTHER, SELFPAY ==
--- NOTE | ~2023-12-03 | MR_ITS ---
EXAMINATION: MR BRAIN WITHOUT CONTRAST CLINICAL INFORMATION: Postconcussion headache. Greater than 12 months. Cognitive impairment. COMPARISON: CT head dated 12/03/2022. TECHNIQUE: MRI of the brain was obtained using routine sequences without contrast. FINDINGS: Midline structures are normal in appearance. The cerebellar tonsils are normally positioned. The cervicomedullary junction is normal in appearance. There is no area of abnormal restricted diffusion to indicate an acute/subacute cerebral or cerebellar infarction. There is no intracranial hemorrhage. There is no midline shift. No mass effect or extra-axial fluid collection. Patchy T2/FLAIR hyperintensity is noted within the subcortical white matter of the left parietal lobe. This is entirely nonspecific. The ventricles are normal in size and configuration. The flow voids at the base of the brain are maintained. The orbits are symmetric and within normal limits. There is a moderate size right mastoid air cell effusion. There is mild to moderate paranasal sinus mucosal disease. MR/MR head/brain wo con IMPRESSION: No acute intracranial abnormality. There is a small focus of patchy T2/FLAIR hyperintensity noted within the subcortical white matter of the left parietal lobe. This is entirely nonspecific, although likely represents mild microvascular ischemic change. There is mild to moderate paranasal sinus mucosal disease and a moderate size right mastoid air cell effusion.
== END 2023-12-03 11:32 | disposition home or self-care (01) ==
LOC: HO.MRI 11:31
PROVIDERS: PCP Internal Medicine; Visit Provider Internal Medicine
DX: R51.9 Headache, unspecified (principal); S06.0XAD Concussion with loss of consciousness status unknown, subsequent encounter
CPT/HCPCS: 70551

== ENCOUNTER 2024-06-30 10:01 | Outpatient (REF) | payer OTHER, SELFPAY ==
--- NOTE | ~2024-06-30 | MM_ITS ---
EXAMINATION: MM SCREENING DIGITAL BREAST TOMOSYNTHESIS, BILATERAL CLINICAL INFORMATION: Screening. Asymptomatic. COMPARISON: Mammography: There are no prior mammograms for comparison. This baseline study. TECHNIQUE: Digital breast tomosynthesis is performed in both the craniocaudal and mediolateral oblique views along with computer-aided detection (CAD). Synthesized 2D images are generated from the tomosynthesis. FINDINGS: The breasts are heterogeneously dense, which may obscure small masses (ACR BI-RADS breast composition Category c). There are faint, calcifications in the upper outer quadrant of the left breast and in the anterior duct. These lie just superior and lateral to the posterior nipple line. Additional mammographic imaging of these calcifications with magnification is advised. In the right breast, there are no significant masses, abnormal calcifications, or other abnormalities. MM/MM tomosynthesis screening BI IMPRESSION: Grouped calcifications of the left breast warrant additional mammographic imaging magnification. No mammographic signs of malignancy right breast. ASSESSMENT: BI-RADS BI-RADS 1 - Negative RECOMMENDATION: Additional views of the left breast. Radiology department staff will contact the patient for additional imaging. Additional Imaging required This examination should not preclude the clinical evaluation of a suspicious palpable abnormality. This patient's information was entered into a reminder system with a target due date for their next mammogram. Electronically signed by: Melody Lowery MD 07/27/2024 04:51 PM EDT
== END 2024-06-30 10:02 | disposition home or self-care (01) ==
LOC: HO.MAMMO 10:01
PROVIDERS: PCP Internal Medicine; Visit Provider Internal Medicine
DX: Z12.31 Encounter for screening mammogram for malignant neoplasm of breast (principal)
CPT/HCPCS: 77063; 77067

== ENCOUNTER → 2024-06-30 10:15 | Outpatient (BNV) | payer OTHER, SELFPAY | PROVIDERS: PCP Internal Medicine; Visit Provider Radiology Diagnostic Radiology | DX: Z12.31 Encounter for screening mammogram for malignant neoplasm of breast (principal) | CPT/HCPCS: 77063; 77067 ==

== ENCOUNTER 2024-08-30 13:12 | Outpatient (REF) | payer OTHER, SELFPAY ==
--- NOTE | ~2024-08-30 | MM_ITS ---
EXAMINATION: MM DIAGNOSTIC DIGITAL BREAST TOMOSYNTHESIS, LEFT CLINICAL INFORMATION: Evaluate faint calcifications left breast seen on screening exam 06/30/2024. COMPARISON: Mammography: 06/30/2024. TECHNIQUE: Digital breast tomosynthesis is performed in 2-D spot magnification left CC and ML x2 views. Computer-aided diagnosis was used for this study. FINDINGS: The breasts are heterogeneously dense, which may obscure small masses (ACR BI-RADS breast composition Category c). Within the retroareolar and upper outer left breast, predominantly confined to the denser parenchyma, there are innumerable tiny punctate extremely faint scattered and loosely grouped calcifications, with a morphology highly suggestive of benign etiology such as sclerosing adenosis or apocrine metaplasia. There are no pleomorphic forms, casting, linear, branching forms identified, and no suspicious distribution. These are probably benign. Six-month follow-up recommended to ensure stability. No additional abnormal findings. MM/MM added views LT IMPRESSION: There are no findings suspicious for malignancy in the left breast. There are probably benign extremely faint scattered and loosely grouped left breast calcifications retroareolar and upper-outer. Six-month interval follow-up magnification views recommended to ensure stability. ASSESSMENT: BI-RADS 3: Probably Benign RECOMMENDATION: Diagnostic mammography in 6 months. This patient's information was entered into a reminder system with a target due date for their next mammogram. Electronically signed by: Oscar Balderrama MD 08/30/2024 02:07 PM EDT
== END 2024-08-30 13:13 | disposition home or self-care (01) ==
LOC: HO.MAMMO 13:12
PROVIDERS: PCP Internal Medicine; Visit Provider Internal Medicine
DX: R92.1 Mammographic calcification found on diagnostic imaging of breast (principal)
CPT/HCPCS: 77065

== ENCOUNTER → 2024-08-30 13:30 | Outpatient (BNV) | payer OTHER, SELFPAY | PROVIDERS: PCP Internal Medicine; Visit Provider Radiology Diagnostic Radiology | DX: R92.1 Mammographic calcification found on diagnostic imaging of breast (principal) | CPT/HCPCS: 77061; 77065 ==

== ENCOUNTER 2025-05-10 11:36 | Emergency (ER) | payer OTHER, SELFPAY ==
[2025-05-10] VITALS (12 sets, daily range): BP systolic 89–104; BP diastolic 55–66; PULSE 80–101; RESP 16–19; TEMP 36.4–36.8; O2SAT 86–97
--- NOTE | ~2025-05-10 | CT_ITS ---
EXAMINATION: CT CERVICAL SPINE WITHOUT CONTRAST CLINICAL INFORMATION: unwitnessed fall TECHNIQUE: Axial imaging was performed from the base of the skull through T2 without IV contrast. Coronal and sagittal reformatted images were generated from the original axial data set. ALARA: The examination used one or more of the following radiation dose reduction techniques: Automated exposure control, iterative reconstruction, and/or adjustment of mA and/or KV. DLP: 247 mGY*cm PRIOR: December 03, 2022 FINDINGS: Motion artifact results in moderate to severe degradation of the study between lower C2 and C6-7. There is subtle reversal of cervical lordosis. C4-C5: There is minimal grade 1 retrolisthesis. There is moderate disc space narrowing with endplate osteophytes and sclerosis. C5-C6: There is mild disc space narrowing and small endplate osteophytes. Smooth periosteal new bone formation involving the lateral right second rib is likely related to a remote fracture. CT/CT cervical spine wo IV con IMPRESSION: There are moderate to severe motion artifacts between lower C2 and C6-7 disc space. If clinically indicated and if patient is able to remain motionless during CT, repeat imaging through this region there is continued clinical concern for fracture. Mild reversal cervical lordosis is chronic. This could be related to degenerative disc disease, could be idiopathic, or could be related to muscle spasms. Lateral right second rib fracture is probably chronic, correlate clinically. Electronically signed by: Jeffry Hodge MD 05/10/2025 02:35 PM EDT
--- NOTE | ~2025-05-10 | CT_ITS ---
EXAMINATION: CT HEAD WITHOUT CONTRAST CLINICAL INFORMATION: Unwitnessed fall, altered mental status. COMPARISON: MR brain 12/03/2023. CT head 12/03/2022. TECHNIQUE: Contiguous axial imaging was performed from the skull base to vertex without intravenous administration of contrast. This CT examination was performed using dose optimization techniques as appropriate, variously including the following: *Automated exposure control *Adjustment of mA and/or kV according to patient size (this includes techniques or standardized protocols for targeted exams where dose is matched to indication/reason for exam; i.e. extremities or head) *Use of iterative reconstruction technique FINDINGS: There is no evidence of intracranial hemorrhage or extra-axial fluid collection. There is no mass effect, or edema. No CT evidence of acute territorial infarct. Ventricles, sulci, and cisterns are normal in size and configuration for patient age. There are prominent extra-axial spaces overlying the frontoparietal convexities. No hydrocephalus. No midline shift. Negative hyperdense MCA sign. Negative insular ribbon sign. Patchy periventricular and deep white matter hypoattenuation is consistent with mild small vessel ischemic changes. Normal pituitary. Globes and orbital contents image normally. No extracranial soft tissue abnormalities. The paranasal sinuses, mastoid air cells, and tympanic cavities are normally aerated. No suspicious bony abnormalities. There are no acute fractures evident. Degenerative changes in the left greater than right TM joints. CT/CT head/brain wo IV con IMPRESSION: No acute intracranial abnormality. No fracture evident. Electronically signed by: Oscar Balderrama MD 05/10/2025 02:37 PM EDT
--- NOTE | ~2025-05-10 | XR_ITS ---
EXAMINATION: XR CHEST 1 VIEW HISTORY: hypoxia COMPARISON: Comparison is made with the prior examination dated 12/03/2022. FINDINGS: A single AP portable view of the chest performed at 2:08 PM is submitted. The lungs are expanded and clear. There is no pleural effusion, pneumothorax, or pulmonary vascular congestion. The heart is normal in size. There are old healed fractures of the right ribs. XR/XR chest 1V IMPRESSION: No acute cardiopulmonary abnormality. Electronically signed by: Cyrus Smiley MD 05/10/2025 02:11 PM EDT
--- NOTE | 2025-05-10 12:03 | ED.FALL ---
HPI - Fall General Chief Complaint: Fall Stated Complaint: unwitnessed fall, unresponsive on seen Time Seen by Provider: 05/10/25 12:02 Source: patient, EMS, RN notes reviewed and old records reviewed Mode of arrival: EMS Limitations: altered mental status History of Present Illness ED Provider: Charbel Arcos PA-C HPI Narrative: 54-year-old female with a history of alcoholism, anorexia nervosa, recurrent falls, history of sacral fractures requiring kyphoplasty in 2020 who presents to the ER for evaluation of an unwitnessed fall At home. Patient's found the patient down in the bathroom. She was unresponsive. EMS was called and when EMS arrived she was able to answer a few questions. C-collar placed. She smelled of vodka and empty vodka bottles on scene. unknown downtime. Patient unable to answer questions on arrival, lethargic, intermittently combative MD complaint: fall Onset (ago): minute(s) Fall witnessed: no Place fall occurred: home Related Data Home Medications ?Medication ?Instructions ?Recorded ?Confirmed acamprosate 333 mg tablet,delayed 333 mg PO TID 05/06/21 12/03/22 release cholecalciferol (vitamin D3) 50 50 mcg PO DAILY 05/06/21 12/03/22 mcg (2,000 unit) tablet hydroxyzine HCl 10 mg tablet 10 mg PO BEDTIME PRN Anxiety 05/06/21 12/03/22 calcium carbonate 1,000 mg PO DAILY 12/03/22 12/03/22 magnesium oxide 420 mg tablet 420 mg PO DAILY 12/03/22 12/03/22 mirtazapine 15 mg tablet 15 mg PO BEDTIME 12/03/22 12/03/22 naltrexone 50 mg tablet 25 mg PO DAILY 12/03/22 12/03/22 olanzapine 5 mg tablet 5 mg PO BEDTIME 12/03/22 12/03/22 potassium chloride 20 mEq oral 20 meq PO DAILY 12/03/22 12/03/22 packet Allergies Allergy/AdvReac Type Severity Reaction Status Date / Time oxycodone (From OXYCONTIN) Allergy Unknown ITCHING Verified 05/10/25 14:19 Review of Systems Review of Systems: Yes Unobtainable due to mental condition and Unobtainable due to mental status PMFSH Past Medical History Medical History Alcoholism Depression Fractures Hx of eating disorder Hypokalemia Rib fractures Surgical History History of mandibular surgery Social History Social History Household Members: Significant Other Housing: House Do you presently have visiting nurse or other home services: No Alcohol intake: current Alcohol intake frequency: 3 or more drinks per day Alcohol type: beer Patient Tobacco Use Status: Never used Tobacco Use of substances other than those prescribed or required for medical reasons: Unknown Substance Use Type: Marijuana Advance Directives: No Advance Directives Information Provided: No Advance Directives Date on File: 05/06/21 service: Yes Current occupational status: unemployed Physical Exam Vital Signs: Vital Signs: Last Vital Signs Temp 97.5 F 05/10/25 16:26 Pulse 86 05/10/25 16:26 Resp 16 05/10/25 16:26 BP 91/58 L 05/10/25 16:26 Pulse Ox 92 05/10/25 16:26 O2 Del Method Room Air 05/10/25 16:26 O2 Flow Rate 2 05/10/25 14:59 BMI result Body Mass Index 20.0 Appearance: middle-aged female, malnourished and frail appearing, in cervical collar, lethargic Head: normocephalic, atraumatic. Eyes: Pupils equal, round and reactive to light. ENT: Pharynx normal. No tonsillar swelling or exudate. Neck: cervical collar in place CVS: Normal heart rate and rhythm. Pulses normal. Respiratory: No respiratory distress. Breath sounds diminished throughout Abdomen: Soft and nontender. +BS x4 Skin: Skin warm and dry. Normal skin color. Normal skin turgor. No rashes. Extremities: No lower extremity edema. No joint swelling. Neuro/psych: lethargic, arouses to voice, intermittently combative with care, moving all extremities spontaneously, not following commands or answering questions appropriately Medications Administered Discontinued Medications Generic Name Dose Route Start Last Admin Trade Name Freq PRN Reason Stop Dose Admin Lactated Ringer's 1,000 mls @ 999 mls/hr 05/10/25 14:45 05/10/25 16:16 Lr IV 05/10/25 15:45 Infused .Q1H1M SUKHJINDER Infusion Medical Decision Making Medical Decision Making MDM Narrative: 54-year-old female with history of alcohol use disorder, recurrent falls, anorexia who is presenting to the ER for evaluation and unwitnessed fall today. eFAST today was negative. VS are stable. labs unremarkable aside from a profoundly elevated alcohol level of 410. U tox is positive for cannabis only menta status slowly improving. AAO x3. denies pain or injury BP soft in the 90s. she states this is where her BP always is. IVF ordered patient removed her C-collar. denies any neck pain. FROM with no tenderness to the cervical spine. CT neck with artifact. low suspicion for ligamentous injury given benign exam 4:45 - patient's significant other at the bedside to take her home. declined further monitoring or treatment in the ER. declined need for detox services. follows at [facility] and reports significant PTSD from 2 tours in combat zone. declining need for CARE team evaluation. patient dishcharged with steady gait with her significant other who she lives with. Differential Diagnosis Differential Diagnoses: The differential diagnosis associated with the presentation includes alcohol intoxication, polypharmacy, syncope, cardiac arrhythmia, seizure, intracranial hemorrhage Admission/Observation Consideration of admission/observation: Escalation of care including admission/observation considered Lab Data [facility] Lab Attestation statement: I reviewed the patient's lab results. thrombocytosis, markedly elevated alcohol level 05/10/25 12:47 05/10/25 12:47 Labs: Lab Results 05/10/25 05/10/25 Range/Units 12:47 15:07 WBC 7.0 (4.8-10.8) X10*3/uL RBC 4.81 (4.20-5.50) X10*6/uL Hgb 15.3 (12.0-16.0) g/dl Hct 46.0 (37.0-47.0) % MCV 95.6 (80.0-98.0) fL MCH 31.8 (27.0-33.0) pg MCHC 33.3 (31.0-35.0) g/dl RDW 14.1 (11.0-16.0) % Plt Count 443 H D (160-400) X10*3/uL MPV 8.9 L (9.4-12.3) fL Immature Gran % (Auto) 0.3 (0.0-0.4) % Neut % (Auto) 49.7 (45-73) % Lymph % (Auto) 41.5 H (20-40) % [place] % (Auto) 5.3 (2-11) % Eos % (Auto) 1.4 (0-4) % Baso % (Auto) 1.8 (0-2) % Lymph # (Auto) 2.9 (1.2-4.9) X10*3/uL [place] # (Auto) 0.4 (0.1-1.2) X10*3/uL Eos # (Auto) 0.1 (0.0-0.4) X10*3/uL Baso # (Auto) 0.1 (0.0-0.2) X10*3/uL Abs Immat Gran (auto) 0.02 (0.00-0.03) X10*3/uL Absolute Neuts (auto) 3.5 (2.0-8.3) x10*3/uL Absolute Nucleated RBC 0.000 (0.0-0.012) X10*3/uL Nucleated RBC % (auto) 0.0 (0.0-0.2) /100WBC Sodium 142 (135-145) mmol/L Potassium 4.7 (3.3-5.1) mmol/L Chloride 105 D (96-108) mmol/L Carbon Dioxide 26 (22-29) mmol/L Anion Gap 16 (12-20) BUN 8 L (9-16) mg/dL Creatinine 0.56 (0.5-1.4) mg/dL Estim Creat Clear Calc TNP Estimated GFR > 60 Random Glucose 84 (60-115) mg/dL Calcium 8.7 D (8.4-10.2) mg/dL Magnesium 2.4 (1.6-2.6) mg/dL Total Bilirubin 0.1 (0.0-1.0) mg/dL Direct Bilirubin < 0.2 (0.0-0.5) mg/dL AST 38 H (5-31) U/L ALT 18 (0-31) U/L Alkaline Phosphatase 62 (39-117) U/L Troponin I High Sens 2.8 (<3.5-17.0) ng/L Total Protein 6.4 L (6.5-8.0) g/dL Albumin 3.2 L (3.5-5.0) g/dL Urine Color Yellow Urine Appearance Clear Urine pH 8.0 (5.0-9.0) Ur Specific [place] 1.010 (1.005-1.025) Urine Protein Negative (Neg-Trace) mg/dL Urine Glucose (UA) Negative (Negative) mg/dL Urine Ketones Negative (Negative) mg/dL Urine Blood Negative (Negative) Urine Nitrite Negative (Negative) Ur Leukocyte Esterase Negative (Negative) Urine Opiates Screen Not Detected (Not Detect) Ur Buprenorphine Scrn Not Detected (Not Detect) ng/mL Ur Oxycodone Screen Not Detected (Not Detect) ng/mL Urine Methadone Screen Not Detected (Not Detect) ng/mL Urine Fentanyl Screen Not Detected (Not Detect) Ur Barbiturates Screen Not Detected (Not Detect) Ur Phencyclidine Scrn Not Detected (Not Detect) Ur Amphetamines Screen Not Detected (Not Detect) U Benzodiazepines Scrn Not Detected (Not Detect) Urine Cocaine Screen Not Detected (Not Detect) U Marijuana (THC) Screen POSITIVE H (Not Detect) Ethyl Alcohol 410 H* mg/dL Independent Interpretation I performed an independent interpretation of an: EKG, Plain X-Ray and CT Scan Interpretation: EKG with normal sinus rhythm, ventricular rate 80 beats per minute, no ST segment elevations or depressions, normal [place] interval, normal QRS chest x-ray with hyperexpanded lungs consistent with COPD, no focal infiltrate or effusion CT head without acute bleed or edema Radiology Impression Discussion of test interpretation with radiology: I have reviewed the radiologist's reading. Radiologist Impression: CT/CT head/brain wo IV con IMPRESSION: No acute intracranial abnormality. No fracture evident. CT/CT cervical spine wo IV con IMPRESSION: There are moderate to severe motion artifacts between lower C2 and C6-7 disc space. If clinically indicated and if patient is able to remain motionless during CT, repeat imaging through this region there is continued clinical concern for fracture. Mild reversal cervical lordosis is chronic. This could be related to degenerative disc disease, could be idiopathic, or could be related to muscle spasms. Lateral right second rib fracture is probably chronic, correlate clinically. XR CHEST 1 VIEW HISTORY: hypoxia COMPARISON: Comparison is made with the prior examination dated 12/03/2022. FINDINGS: A single AP portable view of the chest performed at 2:08 PM is submitted. The lungs are expanded and clear. There is no pleural effusion, pneumothorax, or pulmonary vascular congestion. The heart is normal in size. There are old healed fractures of the right ribs. XR/XR chest 1V IMPRESSION: No acute cardiopulmonary abnormality. Independent Historian Clinical information obtained from an independent historian. History obtained from or confirmed by: EMS External Record Review External record reviewed: Outpatient record, Prior outpatient labs and Prior outpatient radiology Prescription Management I considered prescription management with: Pain Medication and Antibiotic Chronic Conditions Patient?s care impacted by: Other (ETOH use disorder) Social Determinants Patient?s care significantly limited by Social Determinants of Health including: Alcoholism and drug addiction in family and Other Social Determinant of Health Discharge Plan Discharge Clinical Impression: Alcohol intoxication Patient Disposition: Home, Self-Care Instructions: Alcohol Intoxication (DC) Additional Instructions: your alcohol level was SIGNIFICANTLY elevated your blood pressure was on the lower side and we recommend continuing to monitor you in the ER however you refused recommend detoxing from alcohol follow up with your primary care doctor as soon as possible If you develop new or worsening symptoms call 911 or come back to the ER for further evaluation. Alcohol use disorder You were seen in the Emergency Department today for treatment of alcohol use disorder.? You may have been given medications to help with your withdrawal symptoms.? Please do not drink alcohol with them. This is very dangerous and can cause respiratory depression or other adverse reactions depending on the medication. If you would like to cut down or stop your alcohol use please consider calling our outpatient Addiction Treatment office:? [facility] (M-F 9a-5p) [address] [place] [address] ? You have also been given a list of treatment providers in the area that can assist as well.? If you experience seizures, vomiting blood, black stools, falls, severe headache, chest pain, fevers, trouble breathing, hallucinations or any other concerns you need to call 911 or seek immediate care. Please stay hydrated. Prescriptions: No Action hydroxyzine HCl 10 mg Tablet 10 mg PO BEDTIME PRN (Reason: Anxiety) acamprosate 333 mg Tablet,Delayed Release (Dr/Ec) 333 mg PO TID cholecalciferol (vitamin D3) 50 mcg (2,000 unit) Tablet 50 mcg PO DAILY calcium carbonate [Calcium 500] 500 mg calcium (1,250 mg) Tablet 1,000 mg PO DAILY magnesium oxide 420 mg Tablet 420 mg PO DAILY naltrexone 50 mg Tablet 25 mg PO DAILY olanzapine 5 mg Tablet 5 mg PO BEDTIME potassium chloride 20 mEq Packet 20 meq PO DAILY mirtazapine 15 mg Tablet 15 mg PO BEDTIME Print Language: Faroese
--- NOTE | 2025-05-10 12:11 | ECG_ITS ---
Test Reason : fall Blood Pressure : */* mmHG Vent. Rate : 80 BPM Atrial Rate : 80 BPM P-R Int : 164 ms QRS Dur : 82 ms QT Int : 408 ms P-R-T Axes : 54 34 66 degrees QTcB Int : 470 ms Normal sinus rhythm Normal ECG When compared with ECG of 03-Dec-2022 09:46, QT has shortened Referred By: Teresa Arcos Electronically Signed By: BROOKE BLANCAS
[2025-05-10 12:50] LABS: MANUAL DIFF FLAG NO
[2025-05-10 12:52] LABS: Basophils Absolute Auto 0.1 X10*3/uL (0.0-0.2); Basophils Percent Auto 1.8 % (0-2); Eosinophils Absolute Auto 0.1 X10*3/uL (0.0-0.4); Eosinophils Percent Auto 1.4 % (0-4); Hemoglobin 15.3 g/dl (12.0-16.0); Imm Gran Abs Auto 0.02 X10*3/uL (0.00-0.03); Imm Gran Pct Auto 0.3 % (0.0-0.4); Lymphocytes Absolute Auto 2.9 X10*3/uL (1.2-4.9); Lymphocytes Percent Auto 41.5 % (20-40); Mean Corpuscular HGB Conc 33.3 g/dl (31.0-35.0); Mean Corpuscular Hemoglobin 31.8 pg (27.0-33.0); Mean Corpuscular Volume 95.6 fL (80.0-98.0); Mean Platelet Volume 8.9 fL (9.4-12.3); Monocytes Absolute Auto 0.4 X10*3/uL (0.1-1.2); Monocytes Percent Auto 5.3 % (2-11); Neutrophils Absolute Auto 3.5 x10*3/uL (2.0-8.3); Neutrophils Percent Auto 49.7 % (45-73); Platelet Count 443 X10*3/uL (160-400); Red Blood Count 4.81 X10*6/uL (4.20-5.50); Red Cell Distribution Width 14.1 % (11.0-16.0)
[2025-05-10 13:13] LABS: Alanine Aminotransferase 18 U/L (0-31); Albumin Level 3.2 g/dL (3.5-5.0); Alkaline Phosphatase 62 U/L (39-117); Anion Gap 16 (12-20); Aspartate Amino Transferase 38 U/L (5-31); Bilirubin Direct < 0.2 mg/dL (0.0-0.5); Bilirubin Total 0.1 mg/dL (0.0-1.0); Blood Urea Nitrogen 8 mg/dL (9-16); Calcium 8.7 mg/dL (8.4-10.2); Carbon Dioxide 26 mmol/L (22-29); Chloride 105 mmol/L (96-108); Estimated Glomerular Filt Rate > 60; Ethanol 410 mg/dL; Glucose Random 84 mg/dL (60-115); Magnesium 2.4 mg/dL (1.6-2.6); Potassium 4.7 mmol/L (3.3-5.1); Sodium 142 mmol/L (135-145); Total Protein 6.4 g/dL (6.5-8.0)
--- NOTE | 2025-05-10 13:20 | PC.NURSE ---
Pt removing C collar and O2. Pt opens eyes well with voice but does not answer questions. Pt resistant to blood draw. Pt VSS O2 sat stable at this time on RA
[2025-05-10 13:22] LABS: Troponin-I High Sensitivity 2.8 ng/L (<3.5-17.0)
--- NOTE | 2025-05-10 14:33 | PC.ADMIT ---
Pt now answering questions and following commands- VSS c collar in place as provider has not reassessed yet.
[2025-05-10] MEDS: Lactated Ringers 1,000 ML 999 ML IV (14:44)
--- NOTE | 2025-05-10 14:45 | PC.NURSE ---
provider aware of BP- IVF order received an dinfusing.
[2025-05-10 15:30] LABS: Appearance Urine Clear; Color Urine Yellow; Glucose Urine UA Negative (Negative); Urine Blood Negative (Negative)
[2025-05-10 15:31] LABS: Leukocyte Esterase Urine Negative (Negative); Nitrite Urine Negative (Negative); Urine Ketones Negative (Negative); Urine Protein Negative (Neg-Trace)
[2025-05-10 15:33] LABS: Amphetamine Screen Urine Not Detected (Not Detect); Barbiturates, Urine Not Detected (Not Detect); Benzodiazepines Screen Urine Not Detected (Not Detect); Buprenorphine Scr Not Detected (Not Detect); Cannabinoid Screen Urine POSITIVE (Not Detect); Cocaine Screen Urine Not Detected (Not Detect); Fentanyl, urine Not Detected (Not Detect); Methadone Screen, Urine Not Detected (Not Detect); Opiate Screen Urine Not Detected (Not Detect); Oxycodone Screen Urine Not Detected (Not Detect); Phencyclidine Screen Urine Not Detected (Not Detect)
--- NOTE | 2025-05-10 16:42 | PC.NURSE ---
This RN resumed care of pt at 1500, pt remained collared, BP sys in the 80s, IVF given at a faster rate. She continues to not be completely coherant at this time, PA aware of BP. Awaiting CT results and lab results for dispo. This RN called and spoke wth Tomas the pt significant other of which he was irritated with this RN, this RN attempted to de-escalate and explain the process and what was currently happening. This RN was told by Tomas that if she wanted to leave we could not keep her here, PA aware, this RN did provide emotional support, and explained that if he wanted to come and get her that she would need a sober ride out of ED. This RN went into pt room to find her standing, collar removed, pt had ripped out her IV, blood was noted to be everywhere. She had also removed all her monitors. Pt stating she wants to go home, this RN explained that once Tomas got here and came back that we would go into room and talk with him and DC her.
== END 2025-05-10 17:07 | disposition home or self-care (01) ==
PROVIDERS: Emergency Provider Emergency Medicine; Referring Provider Physician Assistant
DX: F10.129 Alcohol abuse with intoxication, unspecified (principal); R40.4 Transient alteration of awareness; R11.0 Nausea; M54.2 Cervicalgia; R51.9 Headache, unspecified; Z91.81 History of falling; Z79.899 Other long term (current) drug therapy; Y90.8 Blood alcohol level of 240 mg/100 ml or more; Z51.81 Encounter for therapeutic drug level monitoring
CPT/HCPCS: 36415; 70450; 71045; 72125; 80048; 80076; 80307; 81003; 83735; 84484; 85025; 93005; 96360; 96361; 99285; J7120

== ENCOUNTER → 2025-05-10 12:11 | Outpatient (BNV) | payer OTHER, SELFPAY | PROVIDERS: Emergency Provider Emergency Medicine; Visit Provider Internal Medicine | DX: F10.929 Alcohol use, unspecified with intoxication, unspecified (principal) | CPT/HCPCS: 93010 ==

== ENCOUNTER → 2025-05-10 12:18 | Outpatient (BNV) | payer OTHER, SELFPAY | PROVIDERS: Emergency Provider Emergency Medicine; Visit Provider Radiology Diagnostic Radiology | DX: M50.321 Other cervical disc degeneration at C4-C5 level (principal); R41.82 Altered mental status, unspecified; R09.02 Hypoxemia | CPT/HCPCS: 70450; 71045; 72125 ==

== ENCOUNTER 2025-05-24 18:39 | Emergency (ER) | payer OTHER, SELFPAY ==
--- NOTE | ~2025-05-24 | XR_ITS ---
CLINICAL HISTORY: pain 4 view right wrist Comparison: None provided Findings: There is a distal radial fracture. No dislocations. No significant loss of joint space, osteophyte, or erosions. No radiopaque foreign body. IMPRESSION: 1. Distal radial fracture This document has been electronically signed by: Raul Bradley MD on 05/24/2025 19:53:23
[2025-05-24 19:05] VITALS: BP 107/71; PULSE 106; RESP 18; TEMP 36.9; O2SAT 96; BMI 17.5
--- NOTE | 2025-05-24 19:05 | ED.UPPEXIN ---
HPI - Extremity Injury (Upper) General Chief Complaint: Extremity Injury, Upper Stated Complaint: right wrist inj Time Seen by Provider: 05/24/25 21:53 Source: patient Mode of arrival: ambulatory Limitations: no limitations History of Present Illness ED Provider: Dr. Jayshree Hodgson HPI narrative: Patient comes to the emergency room complaining of right wrist pain for 6 days. Patient states that today she went to her executive director of nursing, patient is being seen for osteoporosis. According to the patient, she showed her wrist to the executive director of nursing, an x-ray was ordered and she was told that she has a distal radial fracture. According to the patient, she was playing [employer] on the 18 of May, patient tripped while playing. Patient states that initially she thought it was sprain. Patient denies any other injuries. Patient denies numbness tingling Related Data Home Medications ?Medication ?Instructions ?Recorded ?Confirmed acamprosate 333 mg tablet,delayed 333 mg PO TID 05/06/21 12/03/22 release cholecalciferol (vitamin D3) 50 50 mcg PO DAILY 05/06/21 12/03/22 mcg (2,000 unit) tablet hydroxyzine HCl 10 mg tablet 10 mg PO BEDTIME PRN Anxiety 05/06/21 12/03/22 calcium carbonate 1,000 mg PO DAILY 12/03/22 12/03/22 magnesium oxide 420 mg tablet 420 mg PO DAILY 12/03/22 12/03/22 mirtazapine 15 mg tablet 15 mg PO BEDTIME 12/03/22 12/03/22 naltrexone 50 mg tablet 25 mg PO DAILY 12/03/22 12/03/22 olanzapine 5 mg tablet 5 mg PO BEDTIME 12/03/22 12/03/22 potassium chloride 20 mEq oral 20 meq PO DAILY 12/03/22 12/03/22 packet Previous Rx's ?Medication ?Instructions ?Recorded ibuprofen 600 mg tablet 600 mg PO Q8H PRN fever or pain 05/24/25 #30 tabs tramadol 50 mg tablet 50 mg PO BID PRN pain #7 tabs 05/24/25 Allergies Allergy/AdvReac Type Severity Reaction Status Date / Time oxycodone (From OXYCONTIN) Allergy Unknown ITCHING Verified 05/24/25 19:08 Review of Systems Review of Systems: Constitutional : No Weight loss, No Fever, No Chills, No Night Sweats, No Fatigue, No Malaise ENT/Mouth : No Hearing loss, No Ear Pain, No Nasal Congestion, No Sinus Pain, No Hoarseness, No sore throat, No Rhinorrhea, No Swallowing Difficulty Eyes: No Eye Pain, No Swelling, No Redness, No Foreign Body, No Discharge, No Vision Changes Cardiovascular : No Chest Pain, No SOB, No Dyspnea on Exertion, No Orthopnea, No Edema, No Palpitations Respiratory : No Cough, No Sputum, No Wheezing, No Smoke Exposure, No Dyspnea Gastrointestinal : No Nausea, No Vomiting, No Diarrhea, No Constipation, No abdominal Pain, No Hematochezia, No Melena Genitourinary : no irregular bleeding, No Dysuria, No Urinary Frequency, No Hematuria, No Urinary Incontinence, No Urgency, No Flank Pain, No Urinary Flow Changes, No Hesitancy Musculoskeletal : Complaining of right wrist pain, No Myalgias, No Joint Swelling Skin : No Skin Lesions, No rash Neuro : No Weakness, No Numbness, No Paresthesias, No Loss of Consciousness, No Dizziness, No Headache Psych : No Anxiety/Panic, No Depression, No SI/HI/AH/VH, No Social Issues, Heme/Lymph: No Bruising, No Bleeding,No Lymphadenopathy Endocrine : No Polyuria, No Polydipsia, No Temperature Intolerance PMFSH Past Medical History Medical History Fractures Rib fractures Hx of eating disorder Hypokalemia Alcoholism Depression Surgical History History of mandibular surgery Social History Social History Household Members: Significant Other Housing: House Do you presently have visiting nurse or other home services: No Alcohol intake: current Alcohol intake frequency: 3 or more drinks per day Alcohol type: beer Patient Tobacco Use Status: Never used Tobacco Substance Use Type: Marijuana Advance Directives: No Advance Directives Information Provided: No Advance Directives Date on File: 05/06/21 service: Yes Current occupational status: unemployed Physical Exam Vital Signs: Vital Signs: Last Vital Signs Temp 98.4 F 05/24/25 19:05 Pulse 106 H 05/24/25 19:05 Resp 18 05/24/25 19:05 BP 107/71 05/24/25 19:05 Pulse Ox 96 05/24/25 19:05 O2 Del Method Room Air 05/24/25 19:05 BMI result Body Mass Index 17.5 Const: Other: Appearance: Alert. Oriented X3. No acute distress. Eyes: Pupils equal, round and reactive to light. ENT: Pharynx normal. Neck: Normal inspection. Neck supple. No lymph nodes noted. No crepitus CVS: Normal heart rate and rhythm. Pulses normal. Normal S1 and S2 Respiratory: No respiratory distress. Breath sounds normal. No Wheezing. No rales Abdomen: Soft and nontender. No rigidity. No distention. Skin: Skin warm and dry. Normal skin color. Normal skin turgor. Ecchymosis on the dorsum of the wrist on the right Extremities: No lower extremity edema. No Lacerations. No Rash. Patient is able to flex and extend all fingers and oppose the thumb. Neuro: Oriented X 3. No motor deficit. No sensory deficit. Moving all extremities. No slurred speech. CN 2 through 12 grossly intact Psych: calm, cooperative, normal affect Course Course Course Narrative: This is an RME: Additional HPI, ROS, PE not included below will be deferred to primary provider. RME assessment and note performed by: Carmen Clemente PA-C This is a [id number]-female who presents to the ER with complaints of right wrist pain since 05/18/2025. [facility] told that she had [facility] fracture and was told to report here. Plan Consultations Consultation #1: per Dr. Forde...... Time: 21:54 Medical Decision Making Medical Decision Making MDM Narrative: [id number]-female who presents to the ER with complaints of right wrist pain since 05/18/2025. X-rays show a distal radial fracture. Patient's forearm was put in a sugar-tong splint After the splint was placed, patient has normal finger coloration, good capillary refill, no discomfort or pain. Independent Interpretation I performed an independent interpretation of an: Plain X-Ray Radiology Impression Discussion of test interpretation with radiology: I have reviewed the radiologist's reading. Radiologist Impression: Findings: There is a distal radial fracture. No dislocations. No significant loss of joint space, osteophyte, or erosions. No radiopaque foreign body. IMPRESSION: 1. Distal radial fracture Critical Care Time Critical Care Time Critical Care Time: Yes Total Critical Care Time: 35 Attestation: I have personally provided critical care time. Time includes review of lab data, radiology results, discussion with consultants, and monitoring for potential decompensation. Intervention performed as documented. Discharge Plan Discharge Clinical Impression: Radial fracture Patient Disposition: Home, Self-Care Instructions: Arm Fracture in Adults (ED) Additional Instructions: Please follow-up with your primary care physician tomorrow. If you have any worsening or new symptoms, please return to the emergency room or call 911 Prescriptions: New tramadol 50 mg tablet 50 mg PO BID PRN (Reason: pain) Qty: 7 0RF ibuprofen 600 mg tablet 600 mg PO Q8H PRN (Reason: fever or pain) Qty: 30 0RF No Action hydroxyzine HCl 10 mg Tablet 10 mg PO BEDTIME PRN (Reason: Anxiety) acamprosate 333 mg Tablet,Delayed Release (Dr/Ec) 333 mg PO TID cholecalciferol (vitamin D3) 50 mcg (2,000 unit) Tablet 50 mcg PO DAILY calcium carbonate [Calcium 500] 500 mg calcium (1,250 mg) Tablet 1,000 mg PO DAILY magnesium oxide 420 mg Tablet 420 mg PO DAILY naltrexone 50 mg Tablet 25 mg PO DAILY olanzapine 5 mg Tablet 5 mg PO BEDTIME potassium chloride 20 mEq Packet 20 meq PO DAILY mirtazapine 15 mg Tablet 15 mg PO BEDTIME Referrals: Kait Jaeger PA-C [[facility]] Print Language: Prydeinig
[2025-05-24 22:28] VITALS: BP 135/84; PULSE 83; RESP 20; TEMP 36.7; O2SAT 98
--- NOTE | 2025-05-24 22:31 | PC.NURSE ---
Covering for RN Dominick, reviewed discharge instructions with pt. pt verbalized understanding, no sign of distress, Medicated per mar upon discharge, pt discharge home with family.
[2025-05-24 22:32] VITALS: BP 135/84; PULSE 83; RESP 20; TEMP 36.7; O2SAT 98
== END 2025-05-24 22:32 | disposition home or self-care (01) ==
PROVIDERS: Emergency Provider Emergency Medicine
DX: S62.101A Fracture of unspecified carpal bone, right wrist, initial encounter for closed fracture (principal); X58.XXXA Exposure to other specified factors, initial encounter; Y93.9 Activity, unspecified; M25.531 Pain in right wrist; Y92.9 Unspecified place or not applicable; Y99.9 Unspecified external cause status
CPT/HCPCS: 73110; 99284; 99291

== ENCOUNTER → 2025-05-24 19:06 | Outpatient (BNV) | payer OTHER, SELFPAY | PROVIDERS: Visit Provider Specialist | DX: M25.531 Pain in right wrist (principal) | CPT/HCPCS: 73110 ==

== ENCOUNTER 2025-05-29 08:58 | Outpatient (AMB) | payer OTHER, SELFPAY ==
--- NOTE | 2025-05-29 09:03 | MHC.OFFVIS ---
Vital Signs 05/29/25 09:09 Height 5 ft 2 in Weight 95 lb BMI 17.4 Intake Visit Reasons: ED- Right wrist pain Intake Note: Carey 55 year old right hand dominant female presents today for her [facility] follow up visit for her right wrist. States she was playing [employer] on the 18 of May, patient tripped while playing. Patient states that initially she thought it was sprain however she was seen by her wound care coordinator and was told it a fracture. Patient was then seen at [facility] where a Radial fracture was confirmed. Patient was splinted and referred to Dr Forde for further evaluation. States splint was very uncomfortable, she removed her splint on wednesday and purchased a wrist brace. Currently states she has pain that is tolerable, denies numbness, tingling or locking of any finger. Allergies oxycodone (From OXYCONTIN) Allergy (Unknown, Verified 05/29/25 09:11) ITCHING HPI HPI ED- Right wrist pain: Details: Carey is a 55 year old right hand dominant woman who presents for a right distal radius fracture, after a fall playing [employer], DOI: 05/18/25. She was seen in the ED on 05/24/25 for wrist pain and told she had a fracture, and placed in a Sugar-tong splint She complains of pain in her wrist, which is now tolerable compared to last week. She says her sugar-tong splint was painful for her to wear, so she removed this on 05/24/25 and has been wearing an OTC wrist brace She denies any numbness or tingling. She has a Hx of anorexia, ETOH abuse, and osteoporosis, for which she sees an [employer]. She denies smoking or vaping. [facility] Medical History Fractures Rib fractures Hx of eating disorder Hypokalemia Alcoholism Depression Surgical History History of mandibular surgery Social History (Updated 05/29/25 @ 09:12 by STEVE Tomlinson) Household Members: Significant Other Housing: House Do you presently have visiting nurse or other home services: No Alcohol intake: current Alcohol intake frequency: 3 or more drinks per day Alcohol type: beer Patient Tobacco Use Status: Never used Tobacco Substance Use Type: Marijuana Advance Directives Date on File: 05/06/21 service: Yes Current occupational status: unemployed and retired Current occupation: rt hand Review of Systems Const All systems reviewed & are unremarkable except as noted in HPI and below Physical Exam Vital Signs: BMI result Body Mass Index 17.4 Const General: cooperative, healthy appearing and no acute distress Orientation/consciousness: patient oriented x3 HEENT Head: Yes normocephalic and Yes atraumatic Eyes EOM: EOMs intact bilaterally Resp Effort & Inspection: normal respiratory effort and able to speak in complete sentences Cardio Jugular venous distension: no JVD Skin General skin exam: turgor normal Rashes: no rashes Neuro General: patient oriented x3 Extrem Other: Evaluation of Right Upper Extremity: The patient is alert, oriented, and in no acute distress Sensation is normal to the tips of all digits Cap refill brisk ROM: She can make a fist and extend all her digits Good elbow ROM Skin: No lacerations or abrasions or evidence of open fracture General: Resolving Ecchymosis. Resolving swelling Most tender over the distal radius Tender over the snuffbox & scaphoid tubercle No tenderness over the DRUJ or distal ulna Radiographs: 3 views of the right wrist & scaphoid were taken and viewed by me today in clinic. They show a transverse metaphyseal distal radius fracture with ~5 degrees apex volar angulation, and a non-displaced scaphoid waist fracture, extending into the distal third. Psych Appearance: grossly normal Affect: normal affect Attitude: cooperative Office Procedures AMB Fracture Care Details: Fracture care distal radius 60078 and scaphoid fracture 86626 Fracture Billing Code: Fracture Billing Code Assessment & Plan Assessment & Plan (1) Fracture of right distal radius: Code(s): S52.501A - Unspecified fracture of the lower end of right radius, initial encounter for closed fracture Category: Medical (2) Fracture of scaphoid of right wrist: Code(s): S62.001A - Unspecified fracture of navicular [scaphoid] bone of right wrist, initial encounter for closed fracture Category: Medical Plan Assessment & Plan: 1. Right distal radius fracture, transverse metaphyseal From a fall, DOI: 05/18/25 2. Right scaphoid waist fracture Date of first cast: 05/29/25 I educated her about this condition I discussed operative and non-operative treatment options I recommend we manage this non-operatively, and she is in agreement She was placed in a short arm thumb spica cast, to be worn for the next 4 weeks. I discussed activity modifications, she is to lift nothing heavier than a cellphone for the next 10-12 weeks to allow for full healing. She will perform gentle finger ROM exercises at home She has a Hx of Anorexia, I discussed good nutrition habits with her during the healing process She will follow up in 4 weeks, with X-rays, 3V R wrist + Scaphoid, OOP She has a placement in a short-arm cast until fracture healing Scribed for Montse Forde MD by Lorenzo Marquez, medical collections representative, on 05/29/25 at 9:20 AM, EST. Orders: Orders XR wrist RT w scaphoid 05/29/25 M25.531 - Pain in right wrist Coding Level of Care Code New Pt Level 4 (71637) Diagnoses Fracture of right distal radius S52.501A Fracture of scaphoid of right wrist S62.001A CPT Codes Fracture Care - Fracture Billing Code: Fracture Billing Code ([id number])
[2025-05-29 09:09] VITALS: BMI 17.4
== END 2025-05-29 10:10 | disposition home or self-care (01) ==
LOC: HO.HOS 08:59
PROVIDERS: Visit Provider Orthopaedic Surgery
DX: S52.591A Other fractures of lower end of right radius, initial encounter for closed fracture (principal); S62.001A Unspecified fracture of navicular [scaphoid] bone of right wrist, initial encounter for closed fracture
CPT/HCPCS: 25600; 99204

== ENCOUNTER → 2025-05-29 09:01 | Outpatient (BNV) | payer OTHER, SELFPAY | PROVIDERS: Visit Provider Radiology Diagnostic Radiology | DX: S52.514 Nondisplaced fracture of right radial styloid process (principal) | CPT/HCPCS: 73110 ==

== ENCOUNTER 2025-05-29 10:42 | Outpatient (REF) | payer OTHER, SELFPAY ==
--- NOTE | ~2025-05-29 | XR_ITS ---
EXAMINATION: XR WRIST NAVICULAR RIGHT HISTORY: M25.531 - Pain in right wrist COMPARISON: Comparison is made with the prior examination dated 05/24/2025. FINDINGS: Four views of the left wrist including a scaphoid view are submitted. The bones are osteopenic. Again seen is a nondisplaced transverse fracture of the distal radial metaphysis. The fracture line remains visible. There is moderate degenerative change of the 1st carpometacarpal joint. The soft tissues are unremarkable. XR/XR wrist RT w scaphoid IMPRESSION: Osteopenia. Nondisplaced fracture of the distal radial metaphysis without change. Electronically signed by: Cyrus Smiley MD 05/29/2025 09:10 AM EDT
== END 2025-05-29 10:43 | disposition home or self-care (01) ==
LOC: HO.HOSX 10:42
PROVIDERS: Visit Provider Orthopaedic Surgery
DX: S52.501A Unspecified fracture of the lower end of right radius, initial encounter for closed fracture (principal); S62.001A Unspecified fracture of navicular [scaphoid] bone of right wrist, initial encounter for closed fracture; W01.0XXA Fall on same level from slipping, tripping and stumbling without subsequent striking against object, initial encounter; Y93.9 Activity, unspecified; Y92.9 Unspecified place or not applicable; Y99.8 Other external cause status
CPT/HCPCS: 25600; 73110; 99202

== ENCOUNTER 2025-06-02 17:17 | Emergency (ER) | payer OTHER, SELFPAY ==
--- NOTE | ~2025-06-02 | XR_ITS ---
CLINICAL HISTORY: SOB Single view of the chest. COMPARISON: XR chest dated 05/10/25 at 14:[address] chest dated 12/03/22 at 13:29 EST FINDINGS: Normal heart size. Tortuous thoracic aorta. No consolidation. Linear atelectasis versus scarring along the mid left lower lobe, similar to prior imaging. No pleural effusion or pneumothorax. Mild spondylosis. No acute fracture. Chronic healed lateral right rib fracture deformities. IMPRESSION: 1. No consolidation. This document has been electronically signed by: Rolf Harris MD on 06/02/2025 19:10:08
[2025-06-02 17:29] VITALS: BP 80/50; BP 83/51; PULSE 92; RESP 22; TEMP 36.4; O2SAT 91; BMI 16.8
--- NOTE | 2025-06-02 17:45 | ECG_ITS ---
Test Reason : HYPOTENSION Blood Pressure : */* mmHG Vent. Rate : 87 BPM Atrial Rate : 87 BPM P-R Int : 174 ms QRS Dur : 78 ms QT Int : 404 ms P-R-T Axes : 63 48 57 degrees QTcB Int : 486 ms Normal sinus rhythm Prolonged QT Abnormal ECG When compared with ECG of 10-May-2025 12:13, No significant change was found Referred By: Jyoti Soni Electronically Signed By: BROOKE BLANCAS
[2025-06-02 17:53] LABS: MANUAL DIFF FLAG NO
[2025-06-02 17:55] LABS: Hematocrit 37.5 % (37.0-47.0); Hemoglobin 12.7 g/dl (12.0-16.0); Imm Gran Abs Auto 0.02 X10*3/uL (0.00-0.03); Imm Gran Pct Auto 0.3 % (0.0-0.4); Lymphocytes Absolute Auto 3.1 X10*3/uL (1.2-4.9); Mean Corpuscular HGB Conc 33.9 g/dl (31.0-35.0); Mean Corpuscular Hemoglobin 32.1 pg (27.0-33.0); Mean Corpuscular Volume 94.7 fL (80.0-98.0); NRBC Abs Auto 0.000 X10*3/uL (0.0-0.012); NRBC Pct Auto 0.0 /100WBC (0.0-0.2); Platelet Count 437 X10*3/uL (160-400); Red Blood Count 3.96 X10*6/uL (4.20-5.50); White Blood Count 6.8 X10*3/uL (4.8-10.8)
[2025-06-02] MEDS: SODIUM CHLORIDE 1419 ML IV (18:00)
[2025-06-02] MEDS: Albumin Human 25 % 100 ML 133.33 ML IV (18:04)
[2025-06-02 18:13] LABS: Alanine Aminotransferase 9 U/L (0-31); Albumin Level 2.7 g/dL (3.5-5.0); Alkaline Phosphatase 70 U/L (39-117); Anion Gap 16 (12-20); Aspartate Amino Transferase 24 U/L (5-31); Blood Urea Nitrogen 8 mg/dL (9-16); Calcium 7.4 mg/dL (8.4-10.2); Carbon Dioxide 20 mmol/L (22-29); Chloride 116 mmol/L (96-108); Creatinine Clr Calc Pharmacy 76.8; Estimated Glomerular Filt Rate > 60; Magnesium 1.6 mg/dL (1.6-2.6); Potassium 3.5 mmol/L (3.3-5.1); Sodium 148 mmol/L (135-145); Total Protein 4.8 g/dL (6.5-8.0)
[2025-06-02 18:14] LABS: B Type Natriuretic Peptide 12 pg/mL (<100)
--- NOTE | 2025-06-02 18:14 | ED.GENADULT ---
HPI - General Adult General Chief complaint: Altered Mental Status Stated complaint: Found unresponsive,now respond to painful stimuli Time Seen by Provider: 06/02/25 17:45 Source: patient and EMS Mode of arrival: EMS Limitations: altered mental status History of Present Illness ED Provider: HPI narrative: Patient with history of alcohol use disorder, was reportedly found by family being unresponsive, she was noted to be hypotensive, as soon as she was in the room she was much more responsive and shaking her head to yes and no answers she is tearful does not really want to talk she does admit to drinking alcohol today and shook her head and that she does drink daily but no other drug use. No trauma. Has not been hypoglycemic for EMS in the field Related Data Home Medications ?Medication ?Instructions ?Recorded ?Confirmed acamprosate 333 mg tablet,delayed 333 mg PO TID 05/06/21 12/03/22 release cholecalciferol (vitamin D3) 50 50 mcg PO DAILY 05/06/21 12/03/22 mcg (2,000 unit) tablet hydroxyzine HCl 10 mg tablet 10 mg PO BEDTIME PRN Anxiety 05/06/21 12/03/22 calcium carbonate 1,000 mg PO DAILY 12/03/22 12/03/22 magnesium oxide 420 mg tablet 420 mg PO DAILY 12/03/22 12/03/22 mirtazapine 15 mg tablet 15 mg PO BEDTIME 12/03/22 12/03/22 naltrexone 50 mg tablet 25 mg PO DAILY 12/03/22 12/03/22 olanzapine 5 mg tablet 5 mg PO BEDTIME 12/03/22 12/03/22 potassium chloride 20 mEq oral 20 meq PO DAILY 12/03/22 12/03/22 packet Previous Rx's ?Medication ?Instructions ?Recorded ibuprofen 600 mg tablet 600 mg PO Q8H PRN fever or pain 05/24/25 #30 tabs tramadol 50 mg tablet 50 mg PO BID PRN pain #7 tabs 05/24/25 Allergies Allergy/AdvReac Type Severity Reaction Status Date / Time oxycodone (From OXYCONTIN) Allergy Unknown ITCHING Verified 06/02/25 17:30 Review of Systems Constitutional: Constitutional: Reports as per [facility] Past Medical History Medical History Fractures Rib fractures Hx of eating disorder Hypokalemia Alcoholism Depression Surgical History History of mandibular surgery Social History Social History (Updated 05/29/25 @ 09:12 by STEVE Tomlinson) Household Members: Significant Other Housing: House Do you presently have visiting nurse or other home services: No Alcohol intake: current Alcohol intake frequency: 3 or more drinks per day Alcohol type: beer Patient Tobacco Use Status: Never used Tobacco Substance Use Type: Marijuana Advance Directives: Yes Advance Directives on File: Yes Advance Directives Date on File: 05/06/21 service: Yes Current occupational status: unemployed and retired Current occupation: rt hand Physical Exam ED Vital Signs: Vital Signs - 24 hr 06/02/25 17:29 06/02/25 18:23 06/02/25 19:39 Temperature 97.6 F Pulse Rate 92 85 Respiratory Rate 22 H 12 Blood Pressure 83/51 L 90/56 L 105/68 Pulse Oximetry 91 L 95 Oxygen Delivery Method Room Air Room Air BMI result Body Mass Index 16.8 Const Other: Gen: Appears of stated age HEENT: Pupils 3 mm reactive to light, no scleral icterus Neck: Supple, no LAD CV: RRR, no obvious murmurs appreciated Resp: ?No wheezing rales rhonchi no stridor moving air well Abd: ?Bowel sounds are present, no tenderness no rebound no rigidity MSK: FROM, strength 5/5 all extremities Skin: Warm, dry, intact, Neuro: ?Able to move upper and lower extremities symmetrically, eyes open spontaneously, does not want to talk, no obvious facial asymmetry Medications Administered Generic Name Dose Route Start Last Admin Trade Name Freq PRN Reason Stop Dose Admin Lactated Ringer's 1,000 mls @ 0 mls/hr 06/02/25 18:30 06/02/25 18:48 Lr IV Infused .Q0M SUKHJINDER Infusion Wide Open Discontinued Medications Generic Name Dose Route Start Last Admin Trade Name Freq PRN Reason Stop Dose Admin Sodium Chloride 1,419 mls @ 1,419 mls/hr 06/02/25 17:53 06/02/25 18:47 Ns 30 ml/kg infuse over 1 hr (1419 ml) 06/02/25 18:52 Infused IV Infusion .Q1H STA Albumin Human 100 mls @ 133.333 mls/hr 06/02/25 17:53 06/02/25 18:04 Kedbumin 25 % IV 06/02/25 18:37 133.33 mls/hr Q1H STA Administration Procedures Ultrasound ED POC Ultrasound: EMERGENCY ULTRASOUND REPORT?Point of Care Cardiac ([facility]) Emergent Cardiac for Indication:? Hypotension Views Used: Parasternal long, parasternal short, subxiphoid, 4 chamber Pericardial Effusion/Tamponade Findings: No pericardial effusion RV Dilation (> LV diam in 4ch apical): No RV dilation Global LV Fxn: Good cardiac squeeze IVC Dilation and Resp Variation:? IVC collapsible to more than 50%? Impression: Hypovolemia, no RV strain, no pericardial effusion, no decreased cardiac squeeze Medical Decision Making Medical Decision Making MDM Narrative: I was asked to evaluate patient who was coming in to emergency department with altered mentation and hypotension, on my evaluation patient is actually quite responsive, she is tearful, admits to drinking but this is all by shaking her head yes and no questions, I started with bedside ultrasound and noted that she is hypovolemic IVC is flat, she does have a good cardiac squeeze with the RV strain or pericardial effusion to suspect that as the cause for hypotension, she did receive 500 cc IV fluids in the field I am providing additional fluids, albumin as with alcohol use disorder she is at risk for that. I anticipate that she will be admitted. 20:08 patient is speaking full sentences, blood pressure has been stabilizing, or alcohol level significantly elevated, her boyfriend is at bedside, she is expressing interest of going home, repeat lactate make sure it is trending down this it is not infectious but due to dehydration and we will discharge her Repeat lactate 2.7 when moving in the right direction, she is now sitting up, talking, her boyfriend is able to take her home Differential Diagnosis Differential Diagnoses: The differential diagnosis associated with the presentation includes Stroke, subarachnoid hemorrhage, dehydration, hypoglycemia, electrolyte derangements, intoxication, ACS, PE, cardiac tamponade Admission/Observation Consideration of admission/observation: Escalation of care including admission/observation considered 2022 Emergency Medicine Coding Guide from [email or web address] on 06/02/2025 All calculations should be rechecked by clinician prior to use RESULT SUMMARY: 5 Estimated Level of Service Problems: Moderate (4) Risk: High (5) Data: Extensive (5) NARRATIVE MDM: This patient's problem complexity is Moderate as patient: has a new undiagnosed problem with uncertain prognosis but that could be serious. This patient's risk is High due to: overall presentation requiring evaluation for a potentially High-risk process. This patient's data complexity is Extensive due to: -multiple tests ordered/reviewed -independent interpretation of imaging or EKG INPUTS: Number and Complexity ?> 5 = 4: undiagnosed new problem, uncertain outcome (e) Risk level ?> 4 = High Tests ordered ?> 2 = 2 Tests results reviewed (excluding labs) ?> 2 = 2 Prior external notes reviewed ?> 0 = 0 Assessment requiring and independent historian ?> 0 = No Independent interpretation of tests ?> 1 = Yes Discussed management/test interpretation w/external professional ?> 0 = No Lab Data MDM Lab Attestation statement: I reviewed the patient's lab results. 06/02/25 17:47 06/02/25 17:47 Labs: Lab Results 06/02/25 06/02/25 06/02/25 Range/Units 17:47 18:42 18:43 WBC 6.8 (4.8-10.8) X10*3/uL RBC 3.96 L (4.20-5.50) X10*6/uL Hgb 12.7 (12.0-16.0) g/dl Hct 37.5 (37.0-47.0) % MCV 94.7 (80.0-98.0) fL MCH 32.1 (27.0-33.0) pg MCHC 33.9 (31.0-35.0) g/dl RDW 14.6 (11.0-16.0) % Plt Count 437 H (160-400) X10*3/uL MPV 8.4 L (9.4-12.3) fL Immature Gran % (Auto) 0.3 (0.0-0.4) % Neut % (Auto) 47.2 (45-73) % Lymph % (Auto) 45.3 H (20-40) % [place] % (Auto) 4.3 (2-11) % Eos % (Auto) 1.6 (0-4) % Baso % (Auto) 1.3 (0-2) % Lymph # (Auto) 3.1 (1.2-4.9) X10*3/uL [place] # (Auto) 0.3 (0.1-1.2) X10*3/uL Eos # (Auto) 0.1 (0.0-0.4) X10*3/uL Baso # (Auto) 0.1 (0.0-0.2) X10*3/uL Abs Immat Gran (auto) 0.02 (0.00-0.03) X10*3/uL Absolute Neuts (auto) 3.2 (2.0-8.3) x10*3/uL Absolute Nucleated RBC 0.000 (0.0-0.012) X10*3/uL Nucleated RBC % (auto) 0.0 (0.0-0.2) /100WBC PT 11.6 (10.9-12.4) SEC INR 1.0 (0.9-1.1) VBG pH (7.32-7.43) VBG pCO2 mmHg VBG pO2 mmHg VBG HCO3 (22-26) mmol/L VBG O2 Saturation % VBG Base Excess mmol/L Sodium 148 H (135-145) mmol/L Potassium 3.5 D (3.3-5.1) mmol/L Chloride 116 H (96-108) mmol/L Carbon Dioxide 20 L (22-29) mmol/L Anion Gap 16 (12-20) BUN 8 L (9-16) mg/dL Creatinine 0.61 (0.5-1.4) mg/dL Estim Creat Clear Calc 76.8 Estimated GFR > 60 Random Glucose 80 (60-115) mg/dL Lactic Acid 3.6 H* (0.5-2.0) mmol/L Calcium 7.4 L D (8.4-10.2) mg/dL Magnesium 1.6 (1.6-2.6) mg/dL Total Bilirubin 0.1 (0.0-1.0) mg/dL AST 24 (5-31) U/L ALT 9 (0-31) U/L Alkaline Phosphatase 70 (39-117) U/L Ammonia 25 (13-55) umol/L Troponin I High Sens 7.1 D (<3.5-17.0) ng/L B-Natriuretic Peptide 12 (<100) pg/mL Total Protein 4.8 L (6.5-8.0) g/dL Albumin 2.7 L (3.5-5.0) g/dL TSH 0.35 (0.32-4.0) uIU/mL Urine Opiates Screen (Not Detect) Ur Buprenorphine Scrn (Not Detect) ng/mL Ur Oxycodone Screen (Not Detect) ng/mL Urine Methadone Screen (Not Detect) ng/mL Urine Fentanyl Screen (Not Detect) Ur Barbiturates Screen (Not Detect) Ur Phencyclidine Scrn (Not Detect) Ur Amphetamines Screen (Not Detect) U Benzodiazepines Scrn (Not Detect) Urine Cocaine Screen (Not Detect) U Marijuana (THC) Screen (Not Detect) Ethyl Alcohol 372 H* mg/dL Influenza Type A (PCR) NEGATIVE (Negative) Influenza Type B (PCR) NEGATIVE (Negative) RSV RNA Qual (PCR) NEGATIVE (Negative) SARS-CoV-2 RNA (RT-PCR) NEGATIVE (Negative) 06/02/25 06/02/25 06/02/25 Range/Units 18:44 18:53 20:27 WBC (4.8-10.8) X10*3/uL RBC (4.20-5.50) X10*6/uL Hgb (12.0-16.0) g/dl Hct (37.0-47.0) % MCV (80.0-98.0) fL MCH (27.0-33.0) pg MCHC (31.0-35.0) g/dl RDW (11.0-16.0) % Plt Count (160-400) X10*3/uL MPV (9.4-12.3) fL Immature Gran % (Auto) (0.0-0.4) % Neut % (Auto) (45-73) % Lymph % (Auto) (20-40) % [place] % (Auto) (2-11) % Eos % (Auto) (0-4) % Baso % (Auto) (0-2) % Lymph # (Auto) (1.2-4.9) X10*3/uL [place] # (Auto) (0.1-1.2) X10*3/uL Eos # (Auto) (0.0-0.4) X10*3/uL Baso # (Auto) (0.0-0.2) X10*3/uL Abs Immat Gran (auto) (0.00-0.03) X10*3/uL Absolute Neuts (auto) (2.0-8.3) x10*3/uL Absolute Nucleated RBC (0.0-0.012) X10*3/uL Nucleated RBC % (auto) (0.0-0.2) /100WBC PT (10.9-12.4) SEC INR (0.9-1.1) VBG pH 7.33 (7.32-7.43) VBG pCO2 35 mmHg VBG pO2 65 mmHg VBG HCO3 18 L (22-26) mmol/L VBG O2 Saturation 87.0 % VBG Base Excess -6.2 mmol/L Sodium (135-145) mmol/L Potassium (3.3-5.1) mmol/L Chloride (96-108) mmol/L Carbon Dioxide (22-29) mmol/L Anion Gap (12-20) BUN (9-16) mg/dL Creatinine (0.5-1.4) mg/dL Estim Creat Clear Calc Estimated GFR Random Glucose (60-115) mg/dL Lactic Acid 2.7 H* (0.5-2.0) mmol/L Calcium (8.4-10.2) mg/dL Magnesium (1.6-2.6) mg/dL Total Bilirubin (0.0-1.0) mg/dL AST (5-31) U/L ALT (0-31) U/L Alkaline Phosphatase (39-117) U/L Ammonia (13-55) umol/L Troponin I High Sens (<3.5-17.0) ng/L B-Natriuretic Peptide (<100) pg/mL Total Protein (6.5-8.0) g/dL Albumin (3.5-5.0) g/dL TSH (0.32-4.0) uIU/mL Urine Opiates Screen Not Detected (Not Detect) Ur Buprenorphine Scrn Not Detected (Not Detect) ng/mL Ur Oxycodone Screen Not Detected (Not Detect) ng/mL Urine Methadone Screen Not Detected (Not Detect) ng/mL Urine Fentanyl Screen Not Detected (Not Detect) Ur Barbiturates Screen Not Detected (Not Detect) Ur Phencyclidine Scrn Not Detected (Not Detect) Ur Amphetamines Screen Not Detected (Not Detect) U Benzodiazepines Scrn Not Detected (Not Detect) Urine Cocaine Screen Not Detected (Not Detect) U Marijuana (THC) Screen Not Detected (Not Detect) Ethyl Alcohol mg/dL Influenza Type A (PCR) (Negative) Influenza Type B (PCR) (Negative) RSV RNA Qual (PCR) (Negative) SARS-CoV-2 RNA (RT-PCR) (Negative) Independent Interpretation I performed an independent interpretation of an: EKG (81 beats per minute otherwise normal ECG without dysrhythmia, AV kwadwo blocks or ST-T changes to suspect underlying ACS, my independent interpretation) Critical Care Time Critical Care Time Critical Care Time: Yes Total Critical Care Time: 45 Attestation: Time is exclusive of separately billable procedures. Time includes: direct patient care, patient reassessment, coordination of patient care, interpretation of data (laboratory data, pulse oximetry, arterial blood gases and chest xrays), review of patient's medical records, medical consultation and documentation of patient care. Procedures excluded from critical care time: central intravenous line placement and electrocardiography. Discharge Plan Discharge Clinical Impression: Alcohol use disorder, Acute hypotension Patient Disposition: Home, Self-Care Additional Instructions: Evaluated with concerns for altered mentation, low blood pressure, received fluids, albumin, blood pressure improved, alcohol level 372, please continue to stay hydrated with water and Gatorade, continue drinking both of these for the next 2 days as there was evidence of dehydration on the workup. Alcohol use disorder If you would like to cut down or stop your alcohol use please consider calling our outpatient Addiction Treatment office:? [facility] (M-F 9a-5p) [address] [place] [address] ? You have also been given a list of treatment providers in the area that can assist as well.? If you experience seizures, vomiting blood, black stools, falls, severe headache, chest pain, fevers, trouble breathing, hallucinations or any other concerns you need to call 911 or seek immediate care. Please stay hydrated. Prescriptions: No Action hydroxyzine HCl 10 mg Tablet 10 mg PO BEDTIME PRN (Reason: Anxiety) acamprosate 333 mg Tablet,Delayed Release (Dr/Ec) 333 mg PO TID cholecalciferol (vitamin D3) 50 mcg (2,000 unit) Tablet 50 mcg PO DAILY calcium carbonate [Calcium 500] 500 mg calcium (1,250 mg) Tablet 1,000 mg PO DAILY magnesium oxide 420 mg Tablet 420 mg PO DAILY naltrexone 50 mg Tablet 25 mg PO DAILY olanzapine 5 mg Tablet 5 mg PO BEDTIME potassium chloride 20 mEq Packet 20 meq PO DAILY mirtazapine 15 mg Tablet 15 mg PO BEDTIME tramadol 50 mg tablet 50 mg PO BID PRN (Reason: pain) Qty: 7 0RF ibuprofen 600 mg tablet 600 mg PO Q8H PRN (Reason: fever or pain) Qty: 30 0RF Print Language: Czech
[2025-06-02 18:15] LABS: Troponin-I High Sensitivity 7.1 ng/L (<3.5-17.0)
[2025-06-02 18:23] VITALS: BP 90/56
[2025-06-02] MEDS: Lactated Ringers 1,000 ML 999 ML IV (18:30)
[2025-06-02 18:56] LABS: Venous Blood Gas Refer to POC result
[2025-06-02 18:57] LABS: VBG HCO3 18 mmol/L (22-26); VBG O2 % Saturation 87.0 %
[2025-06-02 19:01] LABS: Ammonia 25 umol/L (13-55)
[2025-06-02 19:03] LABS: INTERNATIONAL NORM RATIO 1.0 (0.9-1.1); Prothrombin Time 11.6 SEC (10.9-12.4)
[2025-06-02 19:05] LABS: Cannabinoid Screen Urine Not Detected (Not Detect)
[2025-06-02 19:31] LABS: Resp Syncy Virus RNA Qual PCR NEGATIVE (Negative); SARS COV2 PCR INHOUSE NEGATIVE (Negative)
[2025-06-02 19:39] VITALS: BP 105/68; PULSE 85; RESP 12; O2SAT 95
[2025-06-02 20:49] LABS: Reflex Lactate? Lactic Acid Added
[2025-06-02 20:54] VITALS: BP 120/75; PULSE 101; RESP 17; O2SAT 97
--- NOTE | 2025-06-02 21:05 | MHC.EDTECH ---
second lactic done
[2025-06-02 22:30] LABS: Reflex Lactate? Lactic Acid Added
== END 2025-06-02 21:28 | disposition home or self-care (01) ==
PROVIDERS: Emergency Provider Emergency Medicine; Referring Provider Physician Assistant Medical
DX: F10.120 Alcohol abuse with intoxication, uncomplicated (principal); Y90.8 Blood alcohol level of 240 mg/100 ml or more; I95.9 Hypotension, unspecified; R41.82 Altered mental status, unspecified; R06.02 Shortness of breath; Z03.818 Encounter for observation for suspected exposure to other biological agents ruled out; E78.5 Hyperlipidemia, unspecified; E05.90 Thyrotoxicosis, unspecified without thyrotoxic crisis or storm; F43.10 Post-traumatic stress disorder, unspecified; F50.02 Anorexia nervosa, binge eating/purging type; Z68.1 Body mass index [BMI] 19.9 or less, adult; Z79.899 Other long term (current) drug therapy
CPT/HCPCS: 36415; 71045; 76604; 80053; 80307; 82140; 82803; 83605; 83735; 83880; 84443; 84484; 85025; 85610; 87637; 93005; 93308; 96361; 96374; 99285; 99291; J7120; P9047

== ENCOUNTER → 2025-06-02 17:44 | Outpatient (BNV) | payer OTHER, SELFPAY | PROVIDERS: Emergency Provider Emergency Medicine; Visit Provider Radiology Diagnostic Radiology | DX: R06.02 Shortness of breath (principal) | CPT/HCPCS: 71045 ==

== ENCOUNTER → 2025-06-02 17:45 | Outpatient (BNV) | payer OTHER, SELFPAY | PROVIDERS: Emergency Provider Emergency Medicine; Visit Provider Internal Medicine | DX: R94.31 Abnormal electrocardiogram [ECG] [EKG] (principal); I95.9 Hypotension, unspecified | CPT/HCPCS: 93010 ==

== ENCOUNTER 2025-06-25 08:55 | Outpatient (AMB) | payer OTHER, SELFPAY ==
--- NOTE | 2025-06-25 08:56 | A.OFFVIS_ITS ---
Vital Signs 06/25/25 08:57 Height 5 ft 2 in Weight 95 lb 6 oz BMI 17.4 BP 120/82 Blood Pressure Location Lt brachial Position Sitting Pulse 98 Pulse Source Pulse Oximeter Pulse Oximetry (%) 98 Oxygen Delivery Method Room Air Intake Visit Reasons: Ewell screening/egd requested Intake Note: New pt for initial consult per EGD/Ewell. CC: C.O. hx of eating disorder and alcholism with recent relapse in the last year. No current sx or concerns at this time. No pertinent FMHx. Media Production Support Manager Required: No Accompanied by: Self / Same As Patient Allergies oxycodone (From OXYCONTIN) Allergy (Unknown, Verified 06/25/25 08:56) ITCHING HPI HPI Ewell screening/egd requested: Details: 55 year old? female with past medical history of anorexia, ETOH abuse, hyperlipidemia, hyperparathyroidism, and anxiety, depression, PTSD is here today for pre colonoscopy screening.? Patient was sent to us by her PCP.? This is her first colonoscopy screening.? Patient had positive Cologuard. Patient denies any gastrointestinal symptoms in the past or at present.? History of ETOH abuse. Patient relapsed after 2 years in April and May. Denies any personal or family history of gastrointestinal disease, colon polyps, or CRC.? Denies history of difficulty with sedation or anesthesia in the past.? Negative for history of sleep apnea.? Denies any history of cardiac, renal, pulmonary, or hepatic disease.?? No history of infectious? diseases like hepatitis A, B, C, HIV or tuberculosis.? Patient is not on any anticoagulation [facility] Medical History Hyperparathyroidism Bulimia nervosa Osteoporosis PTSD (post-traumatic stress disorder) Hyperlipidemia Nicotine dependence Fractures Rib fractures Hx of eating disorder Hypokalemia Alcoholism Depression Surgical History History of mandibular surgery Social History Household Members: Significant Other Housing: House Do you presently have visiting nurse or other home services: No Alcohol intake: current Alcohol intake frequency: 3 or more drinks per day Alcohol type: beer Patient Tobacco Use Status: Never used Tobacco Substance Use Type: Marijuana Advance Directives Date on File: 05/06/21 service: Yes Current occupational status: unemployed and retired Current occupation: rt hand Review of Systems Const Denies weight gain and Denies weight loss ENT Reports no additional complaints, Denies dysphagia and Denies odynophagia Card Reports no additional complaints Resp Reports no additional complaints GI Denies abdominal pain, Denies belching, Denies melena, Denies bloating, Denies change in bowel habits, Denies dysphagia, Denies excessive flatus, Denies dyspepsia, Denies heartburn, Denies diarrhea, Denies loose stools, Denies nausea, Denies odynophagia and Denies vomiting Musc Reports no additional complaints Neuro Reports no additional complaints Psych Reports no additional complaints Endo Reports no additional complaints Physical Exam Vital Signs: Last Vital Signs Pulse 98 06/25/25 08:57 BP 120/82 06/25/25 08:57 Pulse Ox 98 06/25/25 08:57 Oxygen Delivery Method Room Air 06/25/25 08:57 BMI result Body Mass Index 15.4 Const General: healthy appearing, no acute distress and well developed Nutritional Appearance: well nourished Orientation/consciousness: patient oriented x3 Resp Effort & Inspection: normal respiratory effort, able to speak in complete sentences, no tracheal deviation and symmetric chest movement Auscultation: clear to auscultation bilaterally Cardio Rate: regular rate GI Inspection: Yes normal to inspection and No distended Palpation (GI): Soft to palpation, not firm, nontender and No hepatosplenomegaly present Auscultation: normal bowel sounds General: Yes no CVA tenderness Back/Spine/Pelvis Back: no CVA tenderness Skin General skin exam: elasticity normal, turgor normal and dry skin Neuro General: patient oriented x3 Psych Appearance: grossly normal Mental Status: mental status grossly normal Assessment & Plan Assessment & Plan (1) Screen for colon cancer: Code(s): Z12.11 - Encounter for screening for malignant neoplasm of colon Plan Patient denies any GI, cardiac or respiratory symptoms.? Denies any issues with anesthesia in the past.? Denies any history of sleep apnea.? No history infectious diseases in the past or present.? Not on any anticoagulation therapy.? No family or personal history of colon cancer or polyps.? Positive Cologuard. Patient denies melena, hematochezia, unintentional weight loss or ribbon like stools.? Discussed at length the pre-procedure,? prep, diet & medications as well as what to expect prior, during and after the procedure.?? Stressed the importance of good bowel prep.? Recommended the use of Vaseline or Calmoseptine OTC & baby wipes with bowel movements to promote comfort.? ?Patient verbalizes understanding and agrees to plan of care.? She was given the opportunity to ask questions and all questions answered.? We will see her after the procedure.? Medications: New bisacodyl (Dulcolax (bisacodyl)) take 4 tabs at noon the day before your colonoscopy 20 mg (4 x 5 mg) PO ONCE 4 tabs 0RF constipation 1 day Z12.11 - Encounter for screening for malignant neoplasm of colon polyethylene glycol 3350 (Miralax) As directed by gastroenterology department at [facility] 238 grams PO ONCE 238 grams 0RF Z12.11 - Encounter for screening for malignant neoplasm of colon Coding Level of Care Code New Pt Level 3 (17222) Diagnoses Screen for colon cancer Z12.11 Time Spent (min) 40 Comment 30 minutes spent with patient and additional 10 minutes spent reviewing her records
[2025-06-25 08:57] VITALS: BP 120/82; PULSE 98; O2SAT 98; BMI 17.4
--- OUTSIDE RECORDS SUMMARY | 2025-06-25 09:16 | XMS_ITS | Clinical Summary ---
Author Organization [facility] Address [address] [place] [id number] Phone Care Team Providers Care Welder [employer]ung[employer] Name Role Phone Pcp, Unknown Primary Care Provider Unavailabl e Allergies Active Allergy Reactions Criticality Noted Date Comments Oxycodone-Acetaminophen 09/06/2020 Medications potassium chloride (KLOR-CON) 20 mEq packet Take 20 mEq by mouth 2 (two) times a day. Active magnesium oxide (URO-MAG) 84.5 mg mag (140 mg) Cap Take by mouth daily with breakfast. Active Social History Tobacco Use Types Packs/Day Years Used Date Smoking Tobacco: Never Assessed Education Answer Date Recorded Are you interested in more education? Not on wilder e 03/12/2023 Are you concerned about learning? Not on file 03/12/2023 No 03/12/2023 No 03/12/2023 Digital Access Answer Date Recorded No 04/12/2023 No 04/12/2023 Reliable internet access at home? Not on file 04/12/2023 Device with a working camera? Not on file Comments Unknown Sex and Gender Information Value Date Recorded Sex Assigned at Female 09/06/2020 5:16 PM EDT Legal Sex Female 9:36 PM EDT Gender Identity Female 09/06/2020 5:16 PM EDT Sexual Orientation Not on file Last Filed Vital Signs Vital Sign Reading Time Taken Comments Blood Pressure 130/74 09/06/2020 5:13 PM EDT Pulse 93 09/06/2020 5:13 PM EDT Temperature 37.1 C (98.8 F) 09/06/2020 5:13 PM EDT Respiratory Rate 20 09/06/2020 5:13 PM EDT Oxygen Saturation 97% 09/06/2020 5:13 PM EDT Inhaled Oxygen Concentration - - Weight 44.5 kg (98 lb) 09/06/2020 5:13 PM EDT Height 152.4 cm (5') 09/06/2020 5:13 PM EDT Body Mass Index 19.14 09/06/2020 5:13 PM EDT Plan of Treatment Not on file Medical Devices Not on file Insurance Care Teams [employer] Relationship Specialty Start Date End Date Pcp, Unknown PCP - General 09/06/20 Additional Source Comments The information contained in this document represents components of the legal health record. It is not the complete legal health record.[facility]
== END 2025-06-25 09:40 | disposition home or self-care (01) ==
LOC: HO.HGI 08:56
PROVIDERS: PCP Internal Medicine; Visit Provider Nurse Practitioner Family
DX: Z01.818 Encounter for other preprocedural examination (principal); Z12.11 Encounter for screening for malignant neoplasm of colon
CPT/HCPCS: S0285

== ENCOUNTER 2025-06-26 08:53 | Outpatient (REF) | payer OTHER, SELFPAY ==
--- NOTE | ~2025-06-26 | XR_ITS ---
EXAMINATION: XR WRIST, RIGHT CLINICAL INFORMATION: M25.531 - Pain in right wrist COMPARISON: May 29, 2025. TECHNIQUE: PA, lateral, and oblique views of the right wrist. Scaphoid projection. FINDINGS: Impacted transversely oriented fracture distal metaphysis of the radius with the minimal callus formation. Osteopenia versus osteoporosis. The carpal bones are intact. Degenerative changes in the first and second carpometacarpal joint. No lytic or blastic lesions. XR/XR wrist RT w scaphoid IMPRESSION: No change. Electronically signed by: Patrice Fournier MD 06/26/2025 10:04 AM EDT
--- OUTSIDE RECORDS SUMMARY | 2025-06-26 09:13 | XMS_ITS | Clinical Summary ---
Author Organization [facility] Address [address] [facility] [address] [place] [phone] Phone Care Team Providers Care Chemist Assistant Name Role Phone Pcp, Unknown Primary Care [...] Devices Not on file Insurance Care Teams Chemist Assistant Relationship Specialty Start Date End Date Pcp, Unknown PCP - General 09/06/20 Additional Source Comments The information contained in this document represents components of the legal health record. It is not the complete legal health record.[facility]
== END 2025-06-26 08:54 | disposition home or self-care (01) ==
LOC: HO.HOSX 08:53
PROVIDERS: Visit Provider Orthopaedic Surgery
DX: S52.501A Unspecified fracture of the lower end of right radius, initial encounter for closed fracture (principal); S62.001A Unspecified fracture of navicular [scaphoid] bone of right wrist, initial encounter for closed fracture; M25.531 Pain in right wrist; W19.XXXA Unspecified fall, initial encounter; Y93.73 Activity, racquet and hand sports
CPT/HCPCS: 73110; 99212

== ENCOUNTER 2025-06-26 09:38 | Outpatient (AMB) | payer OTHER, SELFPAY ==
[2025-06-26 10:09] VITALS: BMI 17.4
--- NOTE | 2025-06-26 10:09 | MHC.OFFVIS ---
Vital Signs 06/26/25 10:09 Height 5 ft 2 in Weight 95 lb BMI 17.4 Intake Visit Reasons: OV-RT Distal radius FX, Scaphoid-3V+scap Xray Intake Note: Carey is a 55 year old right hand dominant woman who presents for a right distal radius fracture, after a fall playing [employer], DOI: 05/18/25. She was seen in the ED on 05/24/25 for wrist pain and told she had a fracture, and placed in a Sugar-tong splint. Seen with Dr. Forde who place patient in a short arm thumb spica cast. Patient was advise to keep cast clean and dry. Cast removed in office and xrays update. States she has mild soreness around thumb and no pain by her wrist area. Denies numbness and tingling. Allergies oxycodone (From OXYCONTIN) Allergy (Unknown, Verified 06/26/25 10:10) ITCHING HPI HPI OV-RT Distal radius FX, Scaphoid-3V+scap Xray: Details: Carey is a 55 year old right hand dominant woman who returns for her right distal radius & scaphoid fractures, after a fall playing [employer], DOI: 05/18/25. First placed in cast on 05/29/25. She says she is doing better, she has some mild pain about the base of her thumb, but her wrist pain has improved. She denies any numbness or tingling. She has a Hx of anorexia, ETOH abuse, and osteoporosis, for which she sees an Food And Beverage Attendant. She denies smoking or vaping. FORMERLY [facility] Medical History Hyperparathyroidism Bulimia nervosa Osteoporosis PTSD (post-traumatic stress disorder) Hyperlipidemia Nicotine dependence Fractures Rib fractures Hx of eating disorder Hypokalemia Alcoholism Depression Surgical History History of mandibular surgery Social History (Updated 06/26/25 @ 10:11 by STEVE Tomlinson) Household Members: Significant Other Housing: House Do you presently have visiting nurse or other home services: No Alcohol intake: current Alcohol intake frequency: 3 or more drinks per day Alcohol type: beer Patient Tobacco Use Status: Former Tobacco user Tobacco use type: Cigarette Substance Use Type: Marijuana Advance Directives Date on File: 05/06/21 service: Yes Current occupational status: unemployed and retired Current occupation: rt hand Review of Systems Const All systems reviewed & are unremarkable except as noted in HPI and below Physical Exam Vital Signs: BMI result Body Mass Index 17.4 Const General: no acute distress and alert Orientation/consciousness: patient oriented x3 Neuro General: patient oriented x3 Extrem Other: Evaluation of Right Upper Extremity: The patient is alert, oriented, and in no acute distress Sensation is normal to the tips of all digits Cap refill brisk ROM: She can make a fist and extend all her digits Good elbow ROM Skin: No lacerations or abrasions or evidence of open fracture General: Resolved Ecchymosis. Resolved swelling Mild tenderness over the basal joint Bus Or Truck Garage Mechanic over the scaphoid tubercle No tenderness over the snuffbox No tenderness over the distal radius No tenderness over the DRUJ or distal ulna Radiographs: 3 views of the right wrist & scaphoid were taken and viewed by me today in clinic. They show a transverse metaphyseal distal radius fracture with ~8 degrees apex volar angulation and good evidence of interval bony healing. There is also a suggestion of a non-displaced scaphoid waist fracture, extending into the distal third. Psych Appearance: grossly normal Affect: normal affect Attitude: cooperative Assessment & Plan Assessment & Plan (1) Fracture of right distal radius: Code(s): S52.501A - Unspecified fracture of the lower end of right radius, initial encounter for closed fracture Category: Medical (2) Fracture of scaphoid of right wrist: Code(s): S62.001A - Unspecified fracture of navicular [scaphoid] bone of right wrist, initial encounter for closed fracture Category: Medical Plan Assessment & Plan: 1. Right distal radius fracture, transverse metaphyseal From a fall, DOI: 05/18/25 2. Right scaphoid waist fracture Date of first cast: 05/29/25 I educated her about this condition I discussed operative and non-operative treatment options We will continue to manage this non-operatively, and she is in agreement She was placed in a new short arm cast, to be worn for the next 4 weeks. I discussed activity modifications, she is to lift nothing heavier than a cellphone for the next 6-8 weeks to allow for full healing. She will perform gentle finger ROM exercises at home She has a Hx of Anorexia, I discussed good nutrition habits with her during the healing process She will follow up in 4 weeks, with X-rays, 3V R wrist + Scaphoid, OOP She has a placement in a short-arm cast until fracture healing Scribed for Montse Forde MD by Lorenzo Marquez, resident medical officer, on 06/26/25 at 10:25 AM, EST. Orders: Orders XR wrist RT w scaphoid Today M25.531 - Pain in right wrist Coding Level of Care Code Global (08445) Diagnoses Fracture of right distal radius S52.501A Fracture of scaphoid of right wrist S62.001A
== END 2025-06-26 10:49 | disposition home or self-care (01) ==
LOC: HO.HOS 09:39
PROVIDERS: Visit Provider Orthopaedic Surgery
DX: S52.501A Unspecified fracture of the lower end of right radius, initial encounter for closed fracture (principal); S62.001A Unspecified fracture of navicular [scaphoid] bone of right wrist, initial encounter for closed fracture
CPT/HCPCS: 99024

== ENCOUNTER → 2025-06-26 09:41 | Outpatient (BNV) | payer OTHER, SELFPAY | PROVIDERS: Visit Provider Radiology Diagnostic Radiology | DX: M18.11 Unilateral primary osteoarthritis of first carpometacarpal joint, right hand (principal) | CPT/HCPCS: 73110 ==

== ENCOUNTER 2025-06-29 08:20 | Outpatient (REF) | payer OTHER, SELFPAY ==
--- NOTE | ~2025-06-29 | MM_ITS ---
EXAMINATION: MM DIAGNOSTIC DIGITAL BREAST TOMOSYNTHESIS, BILATERAL CLINICAL INFORMATION: 6-month follow-up of left breast calcifications. COMPARISON: Bilateral screening mammogram on August 01, 2024 and left diagnostic mammogram on August 30, 2024 TECHNIQUE: Digital breast tomosynthesis is performed in both the craniocaudal and mediolateral oblique views along with computer-aided detection (CAD). Synthesized 2D images are generated from the tomosynthesis. Spot magnified compression views of left breast calcifications also obtained. FINDINGS: BREAST COMPOSITION: The breasts are heterogeneously dense, which may obscure small masses (ACR BI-RADS breast composition Category c). RIGHT BREAST: No significant masses, suspicious calcifications or other abnormalities are seen. LEFT BREAST: Previously described regional round calcifications in the upper outer quadrant anterior depth are not significantly changed from prior spot magnified compression views from August 2024. No significant masses, new calcifications or other abnormalities are seen. MM/MM tomosynthesis diagnostic BI IMPRESSION: RIGHT BREAST: Negative, no mammographic evidence of malignancy. Normal interval follow-up is recommended in 12 months. LEFT BREAST: Regional calcifications in the upper outer quadrant anterior depth, not significantly changed from August 2024. Probably benign. A 6-month follow-up left breast mammogram is recommended. ASSESSMENT: BI-RADS 3 - Probably benign finding(s) - 6 month follow-up suggested RECOMMENDATION: 6 Month F/U Results were provided to the patient at time of visit by the technologist. This patient's information was entered into a reminder system with a target due date for their next mammogram. Electronically signed by: John Mart MD 06/29/2025 10:15 AM EDT
--- OUTSIDE RECORDS SUMMARY | 2025-06-29 08:23 | XMS_ITS | Clinical Summary ---
Author Organization [facility] Address [address] [facility] [address] [place] [address] Phone Care Team Providers Care Pipeline Dispatch Operator Name Role Phone Pcp, Unknown Primary Care [...] you interested in more education? Not on wlider e 03/12/2023 Are you concerned about learning? [...] Devices Not on file Insurance Care Teams Pipeline Dispatch Operator Relationship Specialty Start Date End Date Pcp, Unknown PCP - General 09/06/20 Additional Source Comments The information contained in this document represents components of the legal health record. It is not the complete legal health record.[facility]
== END 2025-06-29 08:21 | disposition home or self-care (01) ==
LOC: HO.MAMMO 08:20
PROVIDERS: Visit Provider Nurse Practitioner Gerontology
DX: R92.0 Mammographic microcalcification found on diagnostic imaging of breast (principal)
CPT/HCPCS: 77062; 77066

== ENCOUNTER → 2025-06-29 08:30 | Outpatient (BNV) | payer OTHER, SELFPAY | PROVIDERS: Visit Provider Radiology Body Imaging | DX: R92.1 Mammographic calcification found on diagnostic imaging of breast (principal) | CPT/HCPCS: 77062; 77066 ==

== ENCOUNTER 2025-07-24 08:47 | Outpatient (REF) | payer OTHER, SELFPAY ==
--- NOTE | ~2025-07-24 | XR_ITS ---
EXAMINATION: XR WRIST, RIGHT CLINICAL INFORMATION: M25.531 - Pain in right wrist COMPARISON: June 26, 2025 TECHNIQUE: PA, lateral, oblique, and scaphoid views of the right wrist. FINDINGS: There is diffuse osteopenia. Again seen is a transverse fracture across the distal radius staining into the distal radioulnar joint. There has been remodeling of the fracture line with decreasing density of the sclerosis associated with healing. No other abnormalities are seen aside from mild degenerative changes of the first carpal metacarpal joint which is moderately narrowed with small marginal osteophytes and minimal sclerosis. XR/XR wrist RT w scaphoid IMPRESSION: Continued healing of a distal radial fracture that extends to the distal radioulnar joint. [id number] first [facility] joint osteoarthritis Electronically signed by: Jeffry Hodge MD 07/24/2025 09:51 AM EDT
--- OUTSIDE RECORDS SUMMARY | 2025-07-25 10:15 | XMS_ITS | Encounter Summary ---
Author Organization [facility] Address [address] [facility] [address] [place] [address] Phone Care Team Providers Care Entertainment Agent Name Role Phone Pcp, Unknown Primary Care Provider Unavailabl e Pcp, Unknown Primary Care Provider Unavailabl e Encounter Details Date Type Department Care Team (Late st Contact Info) Description 08/09/2018 Transcribe Orders [facility] Specimen Processing [address] [place] [address] Joel Frederick, DMD [address] [facility] [address] [place] [address] [email or web address] Abscess (Primary Dx) Social History Tobacco Use [...] ABSCESS AEROBIC/ANAEROB IC GRAM STAIN, CHIN ABSCESS [facility] Special Requests None [facility] GRAM STAIN Few WBC'S , NO ORGANISMS SEEN [facility] Culture/Test Few ESCHERICHIA COLI(A) [facility] Culture/Test with MIXED ORGANISMS RESEMBLING CUTANEOUS SHIREEN(A) [facility] Report Status 08/11/2018 FINAL [facility] ORGANISM ESCHERICHIA COLI [facility] Other (Abscess) 08/09/2018 3 :00 PM [...] ORDERA BLES Final Result Performing Organization Address City/State/[facility] Co de Phone Number [address] [address] documented in this encounter Visit Diagnoses Diagnosis Abscess- Primary Cellulitis and abscess of unspecified site documented in this encounter Care Teams Entertainment Agent Relationship Specialty Start Date End Date Pcp, Unknown PCP - General 08/09/18 09/05/20 Pcp, Unknown PCP - General 09/06/20 documented as of this encounter Additional Source Comments The information contained in this document represents components of the legal health record. It is not the complete legal health record.[facility]
--- OUTSIDE RECORDS SUMMARY | 2025-07-25 10:15 | XMS_ITS | Clinical Summary ---
Author Organization [facility] Address [address] [facility] [address] [place] [address] Phone Care Team Providers Care Folder Hand Name Role Phone Pcp, Unknown Primary Care [...] Devices Not on file Insurance Care Teams Folder Hand Relationship Specialty Start Date End Date Pcp, Unknown PCP - General 09/06/20 Additional Source Comments The information contained in this document represents components of the legal health record. It is not the complete legal health record.[facility]
== END 2025-07-24 08:48 | disposition home or self-care (01) ==
LOC: HO.HOSX 08:47
PROVIDERS: Visit Provider Orthopaedic Surgery
DX: S52.501A Unspecified fracture of the lower end of right radius, initial encounter for closed fracture (principal); S62.001A Unspecified fracture of navicular [scaphoid] bone of right wrist, initial encounter for closed fracture; X58.XXXA Exposure to other specified factors, initial encounter
CPT/HCPCS: 73110; 99212

== ENCOUNTER 2025-07-24 09:34 | Outpatient (AMB) | payer OTHER, SELFPAY ==
[2025-07-24 09:56] VITALS: BMI 17.4
--- NOTE | 2025-07-24 09:56 | MHC.OFFVIS ---
Vital Signs 07/24/25 09:56 Height 5 ft 2 in Weight 95 lb BMI 17.4 Intake Visit Reasons: OV-RT Distal radius FX, Scaphoid-3V+scap Xray Intake Note: Carey is a 55 year old right hand dominant female, presents for a right distal radius fracture follow up visit, after a fall playing [employer], DOI: 05/18/25. At her last visit with Dr Forde, patient was placed in a short arm cast and was advise to keep cast dry and clean. No heavy lifting more than 2 lbs. Cast removed in office and xrays updated. States she has no pain, she is able to make a full close fist with very little discomfort. Allergies oxycodone (From OXYCONTIN) Allergy (Unknown, Verified 07/24/25 09:59) ITCHING HPI HPI OV-RT Distal radius FX, Scaphoid-3V+scap Xray: Details: Carey is a 55 year old right hand dominant woman who returns for her right distal radius & scaphoid fractures, after a fall playing [employer], DOI: 05/18/25. First placed in cast on 05/29/25. She says she is doing better, her pain has resolved & she is doing well. She has mild discomfort when making a fist. She denies any numbness or tingling. She has a Hx of anorexia, ETOH abuse, and osteoporosis, for which she sees an Rivet Hole Puncher. She denies smoking or vaping. She is unemployed. FORMERLY [facility], [facility] Medical History Hyperparathyroidism Bulimia nervosa Osteoporosis PTSD (post-traumatic stress disorder) Hyperlipidemia Nicotine dependence Fractures Rib fractures Hx of eating disorder Hypokalemia Alcoholism Depression Surgical History History of mandibular surgery Social History Household Members: Significant Other Housing: House Do you presently have visiting nurse or other home services: No Alcohol intake: current Alcohol intake frequency: 3 or more drinks per day Alcohol type: beer Patient Tobacco Use Status: Former Tobacco user Tobacco use type: Cigarette Substance Use Type: Marijuana Advance Directives Date on File: 05/06/21 service: Yes Current occupational status: unemployed and retired Current occupation: rt hand Review of Systems Const All systems reviewed & are unremarkable except as noted in HPI and below Physical Exam Vital Signs: BMI result Body Mass Index 17.4 Const General: no acute distress and alert Orientation/consciousness: patient oriented x3 Neuro General: patient oriented x3 Extrem Other: Evaluation of Right Upper Extremity: The patient is alert, oriented, and in no acute distress Sensation is normal to the tips of all digits Cap refill brisk ROM: She can make a fist and extend all her digits Good elbow ROM Resolved Ecchymosis. Resolved swelling No tenderness over the scaphoid tubercle No tenderness over the snuffbox No tenderness over the distal radius No tenderness over the DRUJ or distal ulna Radiographs: 3 views of the right wrist & scaphoid were taken and viewed by me today in clinic. They show a transverse metaphyseal distal radius fracture with ~8 degrees apex volar angulation and good evidence of interval bony healing. Reviewing radiographs from 05/24/25 show a non-displaced scaphoid waist fracture, extending into the distal third. Psych Appearance: grossly normal Affect: normal affect Attitude: cooperative Assessment & Plan Assessment & Plan (1) Fracture of right distal radius: Code(s): S52.501A - Unspecified fracture of the lower end of right radius, initial encounter for closed fracture Category: Medical (2) Fracture of scaphoid of right wrist: Code(s): S62.001A - Unspecified fracture of navicular [scaphoid] bone of right wrist, initial encounter for closed fracture Category: Medical Plan Assessment & Plan: 1. Right distal radius fracture, transverse metaphyseal From a fall, DOI: 05/18/25 2. Right scaphoid waist fracture Date of first cast: 05/29/25 I educated her about this condition She appears to be healing well. We will continue to manage this non-operatively, and she is in agreement She was fitted for a velcro wrist splint, to be worn like a cast except for showering, for the next 4 weeks. I discussed activity modifications, she is to lift nothing heavier than a cellphone for the next 4 weeks to allow for full healing. They should also avoid any heavy impact activities, falls, or sports activities for the next 4-6 weeks She will perform gentle finger ROM exercises at home She has a Hx of Anorexia, I discussed good nutrition habits with her during the healing process Anticipate full fracture healing at a minimum 8-12 weeks post-injury She will follow up in 4 weeks, with X-rays, 3V R wrist + Scaphoid, OOP Scribed for Montse Fored MD by Lorenzo Marquez, clinical specialist medical device, on 07/24/25 at 10:05 AM, EST. Orders: Orders XR wrist RT w scaphoid Today M25.531 - Pain in right wrist Coding Level of Care Code Global (32455) Diagnoses Fracture of right distal radius S52.501A Fracture of scaphoid of right wrist S62.001A
--- OUTSIDE RECORDS SUMMARY | 2025-07-24 11:04 | XMS_ITS | Encounter Summary ---
Author Organization [facility] Address [address] [facility] [address] [facility] [address] [place] [address] Phone Care Team Providers Care Chief Petroleum Engineer Name Role Phone Pcp, Unknown Primary Care Provider Unavailabl e Pcp, Unknown Primary Care Provider Unavailabl e Encounter Details Date Type Department Care Team (Late st Contact Info) Description 08/09/2018 Transcribe Orders [facility] Specimen Processing [address] [place] [address] Joel Frederick, DMD [address] [facility] [address] [place] [address] [email or web address] Abscess (Primary Dx) Social History Tobacco Use Types Packs/Day Years Used Date Smoking Tobacco: Never Assessed Comments Unknown Sex and Gender Information Value Date Recorded Sex Assigned at Female 09/06/2020 5:16 PM EDT Legal Sex Female 9:36 PM EDT Gender Identity Female 09/06/2020 5:16 PM EDT Sexual Orientation Not on file documented as of this encounter Plan of Treatment Not on file documented as of this encounter Results * (ABNORMAL) Wound culture/smear (08/09/2018 3:00 PM EDT) Specimen Source/ Description ABSCESS AEROBIC/ANAEROB IC GRAM STAIN, CHIN ABSCESS [facility] Special Requests None [facility] GRAM STAIN Few WBC'S , NO ORGANISMS SEEN [facility] Culture/Test Few ESCHERICHIA COLI(A) [facility] Culture/Test with MIXED ORGANISMS RESEMBLING CUTANEOUS SHIREEN(A) [facility] Report Status 08/11/2018 FINAL [facility] ORGANISM ESCHERICHIA COLI [facility] Other (Abscess) 08/09/2018 3 :00 PM EDT 08/09/2018 7:04 PM EDT Narrative Organism Antibiotic Method Susceptibility Escherichia coli Ampicillin [facility]TE METHOD <=2: Susceptible Escherichia coli Amoxicillin-clavulanate [facility] METHO D <=2: Susceptible Escherichia coli Ampicillin-sulbactam [facility] METHOD <=2: Susceptible Escherichia coli Cefazolin [facility] METHOD <=4: Susceptible Escherichia coli Cefepime [facility] METHOD <=1: Susceptible Escherichia coli Ceftazidime [facility] METHOD <=1: Susceptible Escherichia coli Ceftriaxone [facility] METHOD <=1: Susceptible Escherichia coli Ciprofloxacin [facility] METHOD <=0.25: Susceptible Escherichia coli Extended Spectrum B-lactamase [facility] METHOD Negative Escherichia coli Gentamicin [facility] METHOD <=1: Susceptible Escherichia coli Levofloxacin [facility] METHOD <=0.12: Susceptible Escherichia coli Piperacillin-tazobactam [facility] METHO D <=4: Susceptible Escherichia coli Trimethoprim/sulfame thoxa zole [facility] METHOD <=20: Susceptible Comment:Few ESCHERICHIA COLI Joel Frederick DMD MICROBIOLOGY - GENERAL ORDERA BLES Final Result Performing Organization Address City/State/[facility] Co de Phone Number [address] [address] documented in this encounter Visit Diagnoses Diagnosis Abscess- Primary Cellulitis and abscess of unspecified site documented in this encounter Care Teams Chief Petroleum Engineer Relationship Specialty Start Date End Date Pcp, Unknown PCP - General 08/09/18 09/05/20 Pcp, Unknown PCP - General 09/06/20 documented as of this encounter Additional Source Comments The information contained in this document represents components of the legal health record. It is not the complete legal health record.[facility]
--- OUTSIDE RECORDS SUMMARY | 2025-07-24 11:04 | XMS_ITS | Clinical Summary ---
Author Organization [facility] Address [address] [facility] [address] [place] [phone] Phone Care Team Providers Care Grease And Tallow Pumper Name Role Phone Pcp, Unknown Primary Care [...] Devices Not on file Insurance Care Teams Grease And Tallow Pumper Relationship Specialty Start Date End Date Pcp, Unknown PCP - General 09/06/20 Additional Source Comments The information contained in this document represents components of the legal health record. It is not the complete legal health record.[facility]
== END 2025-07-24 10:27 | disposition home or self-care (01) ==
LOC: HO.HOS 09:34
PROVIDERS: PCP Internal Medicine; Referring Provider Orthopaedic Surgery; Visit Provider Orthopaedic Surgery
DX: S52.501A Unspecified fracture of the lower end of right radius, initial encounter for closed fracture (principal); S62.001A Unspecified fracture of navicular [scaphoid] bone of right wrist, initial encounter for closed fracture
CPT/HCPCS: 99024

== ENCOUNTER → 2025-07-24 09:35 | Outpatient (BNV) | payer OTHER, SELFPAY | PROVIDERS: Visit Provider Radiology Diagnostic Radiology | DX: M18.11 Unilateral primary osteoarthritis of first carpometacarpal joint, right hand (principal) | CPT/HCPCS: 73110 ==

== ENCOUNTER 2025-08-28 08:29 | Outpatient (REF) | payer OTHER, SELFPAY ==
--- NOTE | ~2025-08-28 | XR_ITS ---
EXAMINATION: XR WRIST NAVICULAR RIGHT HISTORY: M25.531 - Pain in right wrist COMPARISON: Comparison is made with the prior examination dated 07/24/2025. FINDINGS: Four views of the right wrist, including a scaphoid view are submitted. The bones are osteopenic. Again seen is a nondisplaced transverse fracture of the distal radius. The fracture line is less evident, consistent with continued healing. There is moderate osteoarthritis of the 1st carpometacarpal joint. The soft tissues are unremarkable. XR/XR wrist RT w scaphoid IMPRESSION: Osteopenia. Healing nondisplaced transverse fracture of the distal radius. Electronically signed by: Cyrus Smiley MD 08/28/2025 09:38 AM EDT
--- OUTSIDE RECORDS SUMMARY | 2025-08-29 08:53 | XMS_ITS | Encounter Summary ---
Author Organization [facility] Address [address] [facility] [address] [place] [address] Phone Care Team Providers Care Business Area Director Name Role Phone Pcp, Unknown Primary Care Provider Unavailabl e Pcp, Unknown Primary Care Provider Unavailabl e Encounter Details Date Type Department Care Team (Late st Contact Info) Description 08/09/2018 Transcribe Orders [facility] Specimen Processing [address] [place] [address] Joel Frederick, DMD [address] [facility] [address] [place] [address] [email or web address] Abscess (Primary Dx) Social History Tobacco Use [...] ABSCESS AEROBIC/ANAEROB IC GRAM STAIN, CHIN ABSCESS [facility] Special Requests None [facility] GRAM STAIN Few WBC'S , NO ORGANISMS SEEN [facility] Culture/Test Few ESCHERICHIA COLI(A) [facility] Culture/Test with MIXED ORGANISMS RESEMBLING CUTANEOUS SHIREEN(A) [facility] Report Status 08/11/2018 FINAL [facility] ORGANISM ESCHERICHIA COLI [facility] Other (Abscess) 08/09/2018 3 :00 PM [...] ORDERA BLES Final Result Performing Organization Address City/State/[facility] Co de Phone Number [address] [address] documented in this encounter Visit Diagnoses Diagnosis Abscess- Primary Cellulitis and abscess of unspecified site documented in this encounter Care Teams Business Area Director Relationship Specialty Start Date End Date Pcp, Unknown PCP - General 08/09/18 09/05/20 Pcp, Unknown PCP - General 09/06/20 documented as of this encounter Additional Source Comments The information contained in this document represents components of the legal health record. It is not the complete legal health record.[facility]
--- OUTSIDE RECORDS SUMMARY | 2025-08-29 08:53 | XMS_ITS | Clinical Summary ---
Author Organization [facility] Address [address] [facility] [address] [place] [id number] Phone Care Team Providers Care Ticket Dispatcher Name Role Phone Pcp, Unknown Primary Care [...] Devices Not on file Insurance Care Teams Ticket Dispatcher Relationship Specialty Start Date End Date Pcp, Unknown PCP - General 09/06/20 Additional Source Comments The information contained in this document represents components of the legal health record. It is not the complete legal health record.[facility]
== END 2025-08-28 08:30 | disposition home or self-care (01) ==
LOC: HO.HOSX 08:29
PROVIDERS: Visit Provider Orthopaedic Surgery
DX: M25.531 Pain in right wrist (principal)
CPT/HCPCS: 73110

== ENCOUNTER → 2025-08-28 09:27 | Outpatient (BNV) | payer OTHER, SELFPAY | PROVIDERS: Visit Provider Radiology Diagnostic Radiology | DX: S52.324A Nondisplaced transverse fracture of shaft of right radius, initial encounter for closed fracture (principal) | CPT/HCPCS: 73110 ==

== ENCOUNTER 2025-09-14 08:28 | Day surgery (SDC) | payer OTHER, SELFPAY ==
--- OUTSIDE RECORDS SUMMARY | 2025-08-15 07:01 | XMS_ITS | Clinical Summary ---
Author Organization [facility] Address [address] [facility] [address] [place] [address] Phone Care Team Providers Care Salesperson Used Cars Name Role Phone Pcp, Unknown Primary Care [...] Devices Not on file Insurance Care Teams Salesperson Used Cars Relationship Specialty Start Date End Date Pcp, Unknown PCP - General 09/06/20 Additional Source Comments The information contained in this document represents components of the legal health record. It is not the complete legal health record.[facility]
--- OUTSIDE RECORDS SUMMARY | 2025-08-15 07:01 | XMS_ITS | Encounter Summary ---
Author Organization [facility] Address [address] [facility] [address] [place] [address] Phone Care Team Providers Care Senior Product Development Scientist Name Role Phone Pcp, Unknown Primary Care Provider Unavailabl e Pcp, Unknown Primary Care Provider Unavailabl e Encounter Details Date Type Department Care Team (Late st Contact Info) Description 08/09/2018 Transcribe Orders [facility] Specimen Processing [address] [place] [address] Joel Frederick, DMD [address] [facility] [address] [place] [address] [email or web address] Abscess (Primary Dx) Social History Tobacco Use [...] ABSCESS AEROBIC/ANAEROB IC GRAM STAIN, CHIN ABSCESS [facility] Special Requests None [facility] GRAM STAIN Few WBC'S , NO ORGANISMS SEEN [facility] Culture/Test Few ESCHERICHIA COLI(A) [facility] Culture/Test with MIXED ORGANISMS RESEMBLING CUTANEOUS SHIREEN(A) [facility] Report Status 08/11/2018 FINAL [facility] ORGANISM ESCHERICHIA COLI [facility] Other (Abscess) 08/09/2018 3 :00 PM EDT [...] ORDERA BLES Final Result Performing Organization Address City/State/[facility] Co de Phone Number [address] [address] documented in this encounter Visit Diagnoses Diagnosis Abscess- Primary Cellulitis and abscess of unspecified site documented in this encounter Care Teams Senior Product Development Scientist Relationship Specialty Start Date End Date Pcp, Unknown PCP - General 08/09/18 09/05/20 Pcp, Unknown PCP - General 09/06/20 documented as of this encounter Additional Source Comments The information contained in this document represents components of the legal health record. It is not the complete legal health record.[facility]
--- NOTE | 2025-09-11 15:17 | HO.ANESPROP2 ---
Documented by User: Nathalie Bingham NP 09/11/25 15:20 HPI - Anesthesia Eval Consult details Narrative: 55 yr old female for Upper Endoscopy and Colonoscopy [facility] ED visit 05/2025 after found unresponsive, hypotensive after drinking ETOH +marijuana use +daily ETOH use H/O bulimia nervosa PMFSH Active Problems Active Problems: All Active Problems (Updated 06/20/25 @ 15:22 by Edgar Oliveira [facility]) Fracture of scaphoid of right wrist (Acute) Fracture of right distal radius (Acute) Fractures (Acute) Closed fracture of single pubic ramus of pelvis (Acute) Closed sacral fracture (Acute) Falls (Acute) Anorexia nervosa (Acute) Past Medical History Medical History Closed hip fracture requiring operative repair Hx of fracture of right hip Hyperparathyroidism Bulimia nervosa Osteoporosis PTSD (post-traumatic stress disorder) Hyperlipidemia Nicotine dependence Fractures Rib fractures Hx of eating disorder Hypokalemia Alcoholism Depression Family History Family history of problems with anesthesia: No Surgical History Surgical History History of hip surgery History of mandibular surgery History of Problems with Anesthesia: No Social History Social History Household Members: Significant Other Housing: House Do you presently have visiting nurse or other home services: No Alcohol intake: current Alcohol intake frequency: 3 or more drinks per day Alcohol type: beer Patient Tobacco Use Status: Former Tobacco user Tobacco use type: Cigarette Use of substances other than those prescribed or required for medical reasons: No Substance Use Type: Marijuana Are you DNR?: No Advance Directives: No Advance Directives Information Provided: Yes Advance Directives Date on File: 05/06/21 Patient : No service: Yes Current occupational status: unemployed and retired Current occupation: rt hand Meds Allergies Allergy/AdvReac Type Severity Reaction Status Date / Time oxycodone (From OXYCONTIN) Allergy Unknown ITCHING Verified 07/24/25 09:59 Home Medications ?Medication ?Instructions ?Recorded ?Confirmed ?Last Taken ?Type cholecalciferol (vitamin D3) 50 50 mcg PO DAILY 05/06/21 09/14/25 12/02/22 History mcg (2,000 unit) tablet magnesium oxide 420 mg tablet 420 mg PO DAILY 12/03/22 09/14/25 12/02/22 History naltrexone 50 mg tablet 25 mg PO DAILY 12/03/22 09/14/25 12/02/22 History olanzapine 5 mg tablet 5 mg PO BEDTIME 12/03/22 09/14/25 12/02/22 History calcium carbonate 500 mg PO DAILY 06/20/25 09/14/25 Unknown History potassium chloride 20 meq PO DAILY 09/14/25 09/14/25 Unknown History Assessment and Plan Final Anesthetic Review Family History of Problems with Anesthesia: No History of Problems with Anesthesia: No Documented by User: India Muir MD 09/14/25 09:53 PMFSH Past Medical History Medical History Closed hip fracture requiring operative repair Hx of fracture of right hip Hyperparathyroidism Bulimia nervosa Osteoporosis PTSD (post-traumatic stress disorder) Hyperlipidemia Nicotine dependence Fractures Rib fractures Hx of eating disorder Hypokalemia Alcoholism Depression Surgical History Surgical History History of hip surgery History of mandibular surgery Social History Social History Household Members: Significant Other Housing: House Do you presently have visiting nurse or other home services: No Alcohol intake: current Alcohol intake frequency: 3 or more drinks per day Alcohol type: beer Patient Tobacco Use Status: Former Tobacco user Tobacco use type: Cigarette Use of substances other than those prescribed or required for medical reasons: No Substance Use Type: Marijuana Are you DNR?: No Advance Directives: No Advance Directives Information Provided: Yes Advance Directives Date on File: 05/06/21 Patient : No service: Yes Current occupational status: unemployed and retired Current occupation: rt hand Meds Allergies Allergy/AdvReac Type Severity Reaction Status Date / Time oxycodone (From OXYCONTIN) Allergy Unknown ITCHING Verified 07/24/25 09:59 Home Medications ?Medication ?Instructions ?Recorded ?Confirmed ?Last Taken ?Type cholecalciferol (vitamin D3) 50 50 mcg PO DAILY 05/06/21 09/14/25 12/02/22 History mcg (2,000 unit) tablet magnesium oxide 420 mg tablet 420 mg PO DAILY 12/03/22 09/14/25 12/02/22 History naltrexone 50 mg tablet 25 mg PO DAILY 12/03/22 09/14/25 12/02/22 History olanzapine 5 mg tablet 5 mg PO BEDTIME 12/03/22 09/14/25 12/02/22 History calcium carbonate 500 mg PO DAILY 06/20/25 09/14/25 Unknown History potassium chloride 20 meq PO DAILY 09/14/25 09/14/25 Unknown History Exam Airway Mallampati Class: I TM Dist: >3cm Neck ROM: Full Loose/Missing/Broken Teeth: Yes, Upper and Lower Heart: RRR Lungs: CTA Assessment and Plan Assessment Anesthesia Assessment: Anesthesia Plan Discussed and Chart Reviewed Final Anesthetic Review NPO: Yes ASA Class: III Final Preanesthetic Review: Meds/Allgs Chart Reviewed, Consent Obtained/Reviewed and Anes Risks/Benef Reviewed Patient Risk: Intermediate Procedure Risk: Intermediate Anesthetic Plan Anesthetic Plan: MAC: Disposition: Standard PACU
[2025-09-12 13:50] VITALS: BMI 17.4
--- NOTE | 2025-09-14 07:39 | MHC.SHP ---
Pre-Procedural Eval Section A - 24 Hr Update-Section A only Date of Service: 09/14/25 The patient is an INPATIENT: No The patient has been examined within 24 hours of the surgical procedure. The History & Physical has been completed within 30 days and I have reviewed it.: No Section B - Complete if H&P > 30 days Chief Complaint: Positive Cologuard test, GERD Relevant Family History (Specify if Yes): No Relevant Social History: None Present Medications: see Short Stay Collaborative assessment Medical History: Significant History (Hyperparathyroidism Bulimia nervosa Osteoporosis PTSD (post-traumatic stress disorder) Hyperlipidemia Nicotine dependence Fractures Rib fractures Hx of eating disorder Hypokalemia Alcoholism Depression) History of Previous Operations: Relevant previous surgery/procedure and date(s) (History of mandibular surgery) Allergies: Allergies Allergy/AdvReac Type Severity Reaction Status Date / Time oxycodone (From OXYCONTIN) Allergy Unknown ITCHING Verified 07/24/25 09:59 Review of Systems Sugical H&P ROS: Negative: Constitution, Cardiovascular, Respiratory and Gastrointestinal Exam Surgical H&P Exam: Normal: Heart, Normal: Lungs, Normal: Extremities and Normal: Abdomen Plan Diagnosis/Plan: Unchanged I have reviewed the history and physical and performed a pertinent physical examination on my patient. No changes have occurred unless specified. Time Spent With Patient Time: Total time managing care of this patient today ____ minutes.
[2025-09-14 08:53] VITALS: BMI 17.0
[2025-09-14 09:25] VITALS: BP 147/86; PULSE 83; RESP 14; TEMP 36.7; O2SAT 97
[2025-09-14] MEDS: Lactated Ringers 1,000 ML 100 ML IVCONT (09:27)
--- NOTE | 2025-09-14 09:35 | P.OPN-COLO_ITS ---
Colonoscopy Operative Note Operative Note Date of Service: 09/14/25 Narrative: FLEXIBLE TRANSORAL UPPER GASTROINTESTINAL ENDOSCOPY WITH BIOPSIES AND COLONOSCOPY TILL CECUM WITH [] Pre-op diagnosis: Colon cancer screening, GERD Post-op diagnosis: GERD, esophagitis, hiatal hernia, Gastritis, Colon Polyps, Diverticulosis, hemorrhoids Endoscopist:? Kem Suggs MD Anesthesia:?MAC UPPER ENDOSCOPY Consent: Indications for the procedure and potential complications of bleeding, perforation, reaction to medications and missed diagnosis were discussed with the patient and informed consent was obtained. Instrument: Olympus GIF H 190 mid size upper endoscope Monitoring: Vital signs and clinical assessment, continuous EKG monitoring, Pulse oximetry, Carbon Dioxide monitoring and blood pressure monitoring were done throughout the procedure. Procedure: The patient was placed in the left lateral decubitis position and pre-procedure medications were administered and a bite block was placed. The endoscope was inserted into the mouth and advanced under direct vision to the third part of duodenum. A careful inspection was made as the upper endoscope was withdrawn including a retroflexed examination of the proximal stomach; Findings and interventions are described below. Findings: Larynx: Normal Esophagus: GE junction at 34 cms, hiatal hernia 34 to 36 cms. A long segment of possible Aguilera's from 24 to 34 cms - biopsies were obtained. . No esophagitis or Aguilera's. Stomach: Moderate diffuse gastric erythema - biopsies were obtained from the gastric body and antrum. Grade 2 flap valve on retroflexed examination of the cardia. Duodenum: Normal bulb and descending duodenum Intervention: Biopsies as noted above COLONOSCOPY PROCEDURE NOTE Instrument: Olympus PCF H 190 L variable stiffness pediatric colonoscope Monitoring: Vital signs and clinical assessment, intermittent blood pressure monitoring, continuous EKG monitoring, Pulse oximetry and Carbon Dioxide monitoring were done throughout the procedure. Please see anesthesia flowsheet. Colon withdrawl time was 42 minutes. Procedure: The patient was placed in the left lateral decubitis position and pre-procedure medications were administered. After a digital rectal examination of the ano-rectum, the video colonoscope was inserted into the rectum and advanced through the colon to the cecum. The colonoscope was slowly withdrawn in a retrograde panoramic fashion and the colon mucosa was carefully examined including a retroflexed view of the rectum. Findings and interventions are described below. Procedure Difficulty: Colon was long and tortuous and there was some spasm and loop formation Findings: Terminal Ileum: Not evaluated Cecum: Normal Ascending Colon: A 10-12 mm sessile polyp in the mid ascending colon- removed with a hot snare A 7-8 mm sessile polyp in the distal ascending colon - removed with a hot snare A 2.5 cms flat polyp at 70 cms - raised with 2 cc of Eleview and removed with a hot snare. Polypectomy site was closed with 2 resolution clips and marked with Margaret ink Transverse Colon: Normal Descending Colon: Moderate diverticulosis Sigmoid Colon: Moderate diverticulosis Rectum: A 2 - 2.5 cms sessile polyp at 4 cms - removed with a hot snare. Polypectomy site was closed with 1 hemoclip and marked with Margaret ink. Ano-rectum: Normal Colon preparation: Excellent, after some irrigation. [place] Bowel Preparation Scale Right colon; 3 Transverse colon: 3 Left colon; 3 (0 = Unprepared colon segment with mucosa not seen due to solid stool that cannot be cleared. 1 = Portion of mucosa of the colon segment seen, but other areas of the colon segment not well seen due to staining, residual stool and/or opaque liquid. 2 = Minor amount of residual staining, small fragments of stool and/or opaque liquid, but mucosa of colon segment seen well. 3 = Entire mucosa of colon segment seen well with no residual staining, small fragments of stool or opaque liquid) Impression and Post Procedure Diagnosis: Endoscopy Findings: ESOPHAGUS: [] STOMACH: [] DUODENUM: [] Colonoscopy Findings: Four small to medium sized polyps were removed Moderate diverticulosis seen in the left colon Plan: Pt has a FU appointment on 11/02/25 with Cinthia Jaimes NP Repeat Colonoscopy in 6 months if polyps are adenomatous and 10 year if polyps are hyperplastic. A summary of above findings and relevant handouts were given to the patient.
[2025-09-14 10:39] VITALS: BP 105/65; PULSE 78; RESP 16; TEMP 36.3; O2SAT 100
[2025-09-14 10:54] VITALS: BP 119/73; PULSE 76; RESP 16; TEMP 36.1; O2SAT 100
== END 2025-09-14 11:16 | disposition home or self-care (01) ==
PROVIDERS: Visit Provider Internal Medicine Gastroenterology
PROC: (CPT 45385; principal; 2025-09-14 10:10)
DX: Z12.11 Encounter for screening for malignant neoplasm of colon (principal); K21.9 Gastro-esophageal reflux disease without esophagitis; R19.5 Other fecal abnormalities; K64.8 Other hemorrhoids; K29.70 Gastritis, unspecified, without bleeding; K44.9 Diaphragmatic hernia without obstruction or gangrene; K57.30 Diverticulosis of large intestine without perforation or abscess without bleeding; D12.7 Benign neoplasm of rectosigmoid junction; D12.2 Benign neoplasm of ascending colon
CPT/HCPCS: 45385; 45381; 43239; 88305; 88313; 88342; J2371; J2704

== ENCOUNTER → 2025-09-14 08:28 | Outpatient (BNV) | payer OTHER, SELFPAY | PROVIDERS: Visit Provider Internal Medicine Gastroenterology | DX: Z12.11 Encounter for screening for malignant neoplasm of colon (principal); R19.5 Other fecal abnormalities; K63.5 Polyp of colon; K57.90 Diverticulosis of intestine, part unspecified, without perforation or abscess without bleeding; K21.00 Gastro-esophageal reflux disease with esophagitis, without bleeding; K29.70 Gastritis, unspecified, without bleeding | CPT/HCPCS: 43239; 45385 ==

== ENCOUNTER 2025-09-18 09:03 | Outpatient (AMB) | payer OTHER, SELFPAY ==
[2025-09-18 09:22] VITALS: BMI 17.0
--- NOTE | 2025-09-18 09:22 | MHC.OFFVIS ---
Vital Signs 09/18/25 09:22 Height 5 ft 2 in Weight 93 lb BMI 17.0 Intake Visit Reasons: OV Right Distal Radius x DOI: 05/18/25. Intake Note: Carey 55 year old right hand dominant woman who returns for her right distal radius & scaphoid fractures, after a fall playing kinkon, DOI: 05/18/25 she was first placed in cast on 05/29/25. Patient missed her last appointment and at her previous visit with Dr. Forde, she was fitted for a velcro wrist splint, she is to lift nothing heavier than a cellphone, she should also avoid any heavy impact activities, falls, or sports activities and should be performing gentle finger ROM exercises at home. Today states she is doing better, no pain and is able to make a fist. Also states she is happy with her ROM improvement at her wrist. Allergies oxycodone (From OXYCONTIN) Allergy (Unknown, Verified 09/18/25 09:24) ITCHING HPI HPI OV Right Distal Radius x DOI: 05/18/25.: Details: Carey is a 55 year old right hand dominant woman who returns for her right distal radius & scaphoid fractures, after a fall playing kinkon, DOI: 05/18/25. First placed in cast on 05/29/25. She says she is doing better, her pain has resolved & she is doing well. She has improved her ROM & is overall happy with her healing progress. She denies any numbness or tingling. She has a Hx of anorexia, ETOH abuse, and osteoporosis, for which she sees an Feature Writer. She denies smoking but says she vapes occasionally, but not every day She is unemployed. [facility] Medical History Closed hip fracture requiring operative repair Hx of fracture of right hip Hyperparathyroidism Bulimia nervosa Osteoporosis PTSD (post-traumatic stress disorder) Hyperlipidemia Nicotine dependence Fractures Rib fractures Hx of eating disorder Hypokalemia Alcoholism Depression Surgical History History of hip surgery History of mandibular surgery Social History Household Members: Significant Other Housing: House Do you presently have visiting nurse or other home services: No Alcohol intake: current Alcohol intake frequency: 3 or more drinks per day Alcohol type: beer Patient Tobacco Use Status: Former Tobacco user Tobacco use type: Cigarette Substance Use Type: Marijuana Advance Directives Date on File: 05/06/21 service: Yes Current occupational status: unemployed and retired Current occupation: rt hand Review of Systems Const All systems reviewed & are unremarkable except as noted in HPI and below Physical Exam Vital Signs: BMI result Body Mass Index 17.0 Const General: no acute distress and alert Orientation/consciousness: patient oriented x3 Neuro General: patient oriented x3 Extrem Other: Evaluation of Right Upper Extremity: The patient is alert, oriented, and in no acute distress Sensation is normal to the tips of all digits Cap refill brisk ROM: She can make a fist and extend all her digits with good strength and no pain Good elbow ROM No swelling or ecchymosis No tenderness over the scaphoid tubercle No tenderness over the snuffbox No tenderness over the distal radius No tenderness over the DRUJ or distal ulna Radiographs: 3 views of the right wrist & scaphoid were taken and viewed by me today in clinic. They show a transverse metaphyseal distal radius fracture with ~8 degrees apex volar angulation and good evidence of interval bony healing. She has a non-displaced scaphoid waist fracture, extending into the distal third, with satisfactory fracture alignment & Psych Appearance: grossly normal Affect: normal affect Attitude: cooperative Assessment & Plan Assessment & Plan (1) Fracture of right distal radius: Code(s): S52.501A - Unspecified fracture of the lower end of right radius, initial encounter for closed fracture Category: Medical (2) Fracture of scaphoid of right wrist: Code(s): S62.001A - Unspecified fracture of navicular [scaphoid] bone of right wrist, initial encounter for closed fracture Category: Medical Plan Assessment & Plan: 1. Right distal radius fracture, transverse metaphyseal From a fall, DOI: 05/18/25 2. Right scaphoid waist fracture Date of first cast: 05/29/25 I educated her about this condition She appears to be healing well. We will continue to manage this non-operatively, and she is in agreement She was fitted for a velcro wrist splint, to be worn like a cast except for showering, for the next 4 weeks. I discussed activity modifications, she is to lift nothing heavier than a cellphone for the next 4 weeks to allow for full healing. They should also avoid any heavy impact activities, falls, or sports activities for the next 4-6 weeks She will perform gentle finger ROM exercises at home She has a Hx of Anorexia, I discussed good nutrition habits with her during the healing process. I explained the effects of smoking on wound/bone healing, and recommend they stop smoking prior to surgery & while healing. This includes vaping, Marijuana, and other Nicotine products including patches used to help quit. They expressed understanding. I ordered a CT scan, with fine cuts through the scaphoid, to assess for bony healing. She will follow up when completed for review. Scribed for Montse Forde MD by Lorenzo Marquez, pesticide use medical coordinator, on 09/18/25 at 9:45 AM, EST. Orders: Orders CT wrist RT wo IV con Today S52.501A - Unspecified fracture of the lower end of right radius, initial encounter for closed fracture, S62.001A - Unspecified fracture of navicular [scaphoid] bone of right wrist, initial encounter for closed fracture XR wrist RT w scaphoid Today M25.531 - Pain in right wrist Coding Level of Care Code Global (78730) Diagnoses Fracture of right distal radius S52.501A Fracture of scaphoid of right wrist S62.001A
--- OUTSIDE RECORDS SUMMARY | 2025-09-18 09:45 | XMS_ITS | Clinical Summary ---
Author Organization [facility] Address [address] [facility] [address] [place] [phone] Phone Care Team Providers Care Prototype Carpenter Name Role Phone Pcp, Unknown Primary Care [...] Devices Not on file Insurance Care Teams Prototype Carpenter Relationship Specialty Start Date End Date Pcp, Unknown PCP - General 09/06/20 Additional Source Comments The information contained in this document represents components of the legal health record. It is not the complete legal health record.[facility]
--- OUTSIDE RECORDS SUMMARY | 2025-09-18 09:45 | XMS_ITS | Encounter Summary ---
Author Organization [facility] Address [address] [facility] [address] [place] [address] Phone Care Team Providers Care Eeg Technologist Name Role Phone Pcp, Unknown Primary Care Provider Unavailabl e Pcp, Unknown Primary Care Provider Unavailabl e Encounter Details Date Type Department Care Team (Late st Contact Info) Description 08/09/2018 Transcribe Orders [facility] Specimen Processing [address] [place] [address] Joel Frederick, DMD [address] [facility] [address] [place] [address] [email or web address] Abscess (Primary Dx) Social History Tobacco Use [...] ABSCESS AEROBIC/ANAEROB IC GRAM STAIN, CHIN ABSCESS [facility] Special Requests None [facility] GRAM STAIN Few WBC'S , NO ORGANISMS SEEN [facility] Culture/Test Few ESCHERICHIA COLI(A) [facility] Culture/Test with MIXED ORGANISMS RESEMBLING CUTANEOUS SHIREEN(A) [facility] Report Status 08/11/2018 FINAL [facility] ORGANISM ESCHERICHIA COLI [facility] Other (Abscess) 08/09/2018 3 :00 PM EDT [...] Susceptible Comment:Few ESCHERICHIA COLI Joel Frederick DMD LAB MICROBIOLOGY CULTURE AMBROCIO GONZALEZ Final Result [address] [address] documented in this encounter Visit Diagnoses Diagnosis Abscess- Primary Cellulitis and abscess of unspecified site documented in this encounter Care Teams Eeg Technologist Relationship Specialty Start Date End Date Pcp, Unknown PCP - General 08/09/18 09/05/20 Pcp, Unknown PCP - General 09/06/20 documented as of this encounter Additional Source Comments The information contained in this document represents components of the legal health record. It is not the complete legal health record.[facility]
== END 2025-09-18 10:03 | disposition home or self-care (01) ==
LOC: HO.HOS 09:03
PROVIDERS: Visit Provider Orthopaedic Surgery
DX: S52.501A Unspecified fracture of the lower end of right radius, initial encounter for closed fracture (principal); S62.001A Unspecified fracture of navicular [scaphoid] bone of right wrist, initial encounter for closed fracture
CPT/HCPCS: 99213

== ENCOUNTER → 2025-09-18 09:05 | Outpatient (BNV) | payer OTHER, SELFPAY | PROVIDERS: Visit Provider Radiology Diagnostic Radiology | DX: M25.531 Pain in right wrist (principal) | CPT/HCPCS: 73110 ==

== ENCOUNTER 2025-09-18 12:36 | Outpatient (REF) | payer OTHER, SELFPAY ==
--- NOTE | ~2025-09-18 | XR_ITS ---
EXAMINATION: XR WRIST, RIGHT CLINICAL INFORMATION: M25.531 - Pain in right wrist COMPARISON: August 28, 2025. TECHNIQUE: PA, lateral, and oblique views of the right wrist. Scaphoid projection. FINDINGS: Transverse oriented irregularity at the scaphoid waist. There is a transverse oriented fracture with mild sclerosis along the fracture site, distal metaphysis of the radius. Osteopenia versus osteoporosis. XR/XR wrist RT w scaphoid IMPRESSION: Healing fractures, distal metaphysis, right radius and scaphoid waist. Electronically signed by: Patrice Fournier MD 09/18/2025 09:21 AM LIZ ADHIKARI
--- OUTSIDE RECORDS SUMMARY | 2025-09-19 15:13 | XMS_ITS | Clinical Summary ---
Author Organization [facility] Address [address] [facility] [address] [place] [phone] Phone Care Team Providers Care Termite Control Service Representative Name Role Phone Pcp, Unknown Primary Care [...] Devices Not on file Insurance Care Teams Termite Control Service Representative Relationship Specialty Start Date End Date Pcp, Unknown PCP - General 09/06/20 Additional Source Comments The information contained in this document represents components of the legal health record. It is not the complete legal health record.[facility]
--- OUTSIDE RECORDS SUMMARY | 2025-09-19 15:13 | XMS_ITS | Encounter Summary ---
Author Organization [facility] Address [address] [place] [address] Phone Care Team Providers Care Shipping & Receiving Lead Name Role Phone Pcp, Unknown Primary Care Provider Unavailabl e Pcp, Unknown Primary Care Provider Unavailabl e Encounter Details Date Type Department Care Team (Late st Contact Info) Description 08/09/2018 Transcribe Orders [facility] Specimen Processing [address] [place] [address] Joel Frederick, DMD [address] [facility] [address] [place] [address] [email or web address] Abscess (Primary Dx) Social History Tobacco Use [...] ABSCESS AEROBIC/ANAEROB IC GRAM STAIN, CHIN ABSCESS [facility] Special Requests None [facility] GRAM STAIN Few WBC'S , NO ORGANISMS SEEN [facility] Culture/Test Few ESCHERICHIA COLI(A) [facility] Culture/Test with MIXED ORGANISMS RESEMBLING CUTANEOUS SHIREEN(A) [facility] Report Status 08/11/2018 FINAL [facility] ORGANISM ESCHERICHIA COLI [facility] Other (Abscess) 08/09/2018 3 :00 PM [...] LAB MICROBIOLOGY CULTURE AMBROCIO GONZALEZ Final Result [address] [address] documented in this encounter Visit Diagnoses Diagnosis Abscess- Primary Cellulitis and abscess of unspecified site documented in this encounter Care Teams Shipping & Receiving Lead Relationship Specialty Start Date End Date Pcp, Unknown PCP - General 08/09/18 09/05/20 Pcp, Unknown PCP - General 09/06/20 documented as of this encounter Additional Source Comments The information contained in this document represents components of the legal health record. It is not the complete legal health record.[facility]
== END 2025-09-18 12:37 | disposition home or self-care (01) ==
LOC: HO.HOSX 12:36
PROVIDERS: Referring Provider Orthopaedic Surgery; Visit Provider Orthopaedic Surgery
DX: S52.501D Unspecified fracture of the lower end of right radius, subsequent encounter for closed fracture with routine healing (principal); S62.001D Unspecified fracture of navicular [scaphoid] bone of right wrist, subsequent encounter for fracture with routine healing; W19.XXXD Unspecified fall, subsequent encounter
CPT/HCPCS: 73110; 99212

== ENCOUNTER 2025-10-27 09:25 | Outpatient (REF) | payer OTHER, SELFPAY ==
--- NOTE | ~2025-10-27 | CT_ITS ---
CLINICAL HISTORY: S62.001A - Unspecified fracture of navicular [scaphoid] bone of right wr... --- Additional Notes or Special Instructions: only needed for fine cuts through the scaphoid to assess fx healing CT right wrist without contrast Comparison: DX/SR - XR WRIST NAVICULAR RIGHT - 09/18/25 09:05 EST DX/SR - XR WRIST NAVICULAR RIGHT - 07/24/25 09:35 EDT DX/SR - XR WRIST NAVICULAR RIGHT - 06/26/25 09:41 EDT CR - XR WRIST RT MIN 3V - 05/24/25 19:24 EDT Findings: No definite scaphoid fracture. If clinical concern persists then MRI can be more sensitive for detection of nondisplaced fractures. Healed distal radius fracture. Diffusely decreased bone mineral density limits evaluation. Degenerative changes greatest at the 1st carpometacarpal joint. IMPRESSION: 1. No definite scaphoid fracture. If clinical concern persists then MRI can be more sensitive for detection of nondisplaced fractures. 2. Healed distal radius fracture. 3. Diffusely decreased bone mineral density limits evaluation. 4. Degenerative changes greatest at the 1st carpometacarpal joint. This document has been electronically signed by: Fredrick Morrison DO on 10/29/2025 12:36:53
--- OUTSIDE RECORDS SUMMARY | 2025-10-27 09:28 | XMS_ITS | Clinical Summary ---
Author Organization [facility] Address [address] [facility] [address] [place] [id number] Phone Care Team Providers Care Weatherstrip Machine Operator Name Role Phone Pcp, Unknown Primary [...] Devices Not on file Insurance Care Teams Weatherstrip Machine Operator Relationship Specialty Start Date End Date Pcp, Unknown PCP - General 09/06/20 Additional Source Comments The information contained in this document represents components of the legal health record. It is not the complete legal health record.[facility]
--- OUTSIDE RECORDS SUMMARY | 2025-10-27 09:28 | XMS_ITS | Encounter Summary ---
Author Organization [facility] Address [address] [facility] [address] [place] [address] Phone Care Team Providers Care Guardian Family Member Name Role Phone Pcp, Unknown Primary Care Provider Unavailabl e Pcp, Unknown Primary Care Provider Unavailabl e Encounter Details Date Type Department Care Team (Late st Contact Info) Description 08/09/2018 Transcribe Orders [facility] Specimen Processing [address] [place] [address] Joel Frederick, DMD [address] [facility] [address] [place] [address] [email or web address] Abscess (Primary Dx) Social History Tobacco Use [...] ABSCESS AEROBIC/ANAEROB IC GRAM STAIN, CHIN ABSCESS [facility] Special Requests None [facility] GRAM STAIN Few WBC'S , NO ORGANISMS SEEN [facility] Culture/Test Few ESCHERICHIA COLI(A) [facility] Culture/Test with MIXED ORGANISMS RESEMBLING CUTANEOUS SHIREEN(A) [facility] Report Status 08/11/2018 FINAL [facility] ORGANISM ESCHERICHIA COLI [facility] Other (Abscess) 08/09/2018 3 :00 PM [...] LAB MICROBIOLOGY CULTURE AMBROCIO GONZALEZ Final Result [address] [address] documented in this encounter Visit Diagnoses Diagnosis Abscess- Primary Cellulitis and abscess of unspecified site documented in this encounter Care Teams Guardian Family Member Relationship Specialty Start Date End Date Pcp, Unknown PCP - General 08/09/18 09/05/20 Pcp, Unknown PCP - General 09/06/20 documented as of this encounter Additional Source Comments The information contained in this document represents components of the legal health record. It is not the complete legal health record.[facility]
== END 2025-10-27 09:26 | disposition home or self-care (01) ==
LOC: HO.CT 09:25
PROVIDERS: Visit Provider Orthopaedic Surgery
DX: S52.501A Unspecified fracture of the lower end of right radius, initial encounter for closed fracture (principal); S62.001A Unspecified fracture of navicular [scaphoid] bone of right wrist, initial encounter for closed fracture
CPT/HCPCS: 73200

== ENCOUNTER → 2025-10-27 09:27 | Outpatient (BNV) | payer OTHER, SELFPAY | PROVIDERS: Visit Provider Family Medicine | DX: S62.001D Unspecified fracture of navicular [scaphoid] bone of right wrist, subsequent encounter for fracture with routine healing (principal); M18.11 Unilateral primary osteoarthritis of first carpometacarpal joint, right hand; M85.841 Other specified disorders of bone density and structure, right hand | CPT/HCPCS: 73200 ==

== ENCOUNTER 2025-11-13 09:32 | Outpatient (AMB) | payer OTHER, SELFPAY ==
[2025-11-13 09:34] VITALS: BMI 17.0
--- NOTE | 2025-11-13 09:34 | A.OFFVIS_ITS ---
Vital Signs 11/13/25 09:34 Height 5 ft 2 in Weight 93 lb BMI 17.0 Intake Visit Reasons: OV Right Distal Radius CT Review Intake Note: Carey 55 year old right hand dominant woman who returns for her right distal radius & scaphoid fractures, after a fall playing [employer], DOI: 05/18/25. At her last visit patient was fitted for a velcro wrist brace. Advise to work on ROM and a order was placed for a CT scan with fine cuts through the scaphoid, to assess for bony healing. Today patient states she has no pain and is doing better. Patient states she has no complaints today. Allergies oxycodone (From OXYCONTIN) Allergy (Unknown, Verified 11/13/25 09:38) ITCHING HPI HPI OV Right Distal Radius CT Review: Details: Carey is a 55 year old right hand dominant woman who returns for her right distal radius & scaphoid fractures, after a fall playing [employer], DOI: 05/18/25. First placed in cast on 05/29/25. She is here for a CT scan review. She says she is doing better, her pain has resolved & she is doing well. She has improved her ROM & is overall happy with her healing progress. She has no complaints today. She denies any numbness or tingling. She has a Hx of anorexia, ETOH abuse, and osteoporosis, for which she sees an Lan Engineer. She denies smoking but says she vapes occasionally, but not every day She is unemployed. [facility] Medical History Closed hip fracture requiring operative repair Hx of fracture of right hip Hyperparathyroidism Bulimia nervosa Osteoporosis PTSD (post-traumatic stress disorder) Hyperlipidemia Nicotine dependence Fractures Rib fractures Hx of eating disorder Hypokalemia Alcoholism Depression Surgical History History of hip surgery History of mandibular surgery Social History Household Members: Significant Other Housing: House Do you presently have visiting nurse or other home services: No Alcohol intake: current Alcohol intake frequency: 3 or more drinks per day Alcohol type: beer Patient Tobacco Use Status: Former Tobacco user Tobacco use type: Cigarette Substance Use Type: Marijuana Advance Directives Date on File: 05/06/21 service: Yes Current occupational status: unemployed and retired Current occupation: rt hand Review of Systems Const All systems reviewed & are unremarkable except as noted in HPI and below Physical Exam Vital Signs: BMI result Body Mass Index 17.0 Const General: no acute distress and alert Orientation/consciousness: patient oriented x3 Neuro General: patient oriented x3 Extrem Other: Evaluation of Right Upper Extremity: The patient is alert, oriented, and in no acute distress Sensation is normal to the tips of all digits Cap refill brisk ROM: She can make a fist and extend all her digits with good strength and no pain Good elbow ROM Smooth wrist ROM without pain No swelling or ecchymosis No tenderness over the scaphoid tubercle No tenderness over the snuffbox No tenderness over the distal radius No tenderness over the DRUJ or distal ulna Radiographs: 3 views of the right wrist & scaphoid from 09/18/25 were reviewed by me today in clinic. They show a transverse metaphyseal distal radius fracture with ~8 degrees apex volar angulation and good evidence of interval bony healing. She has a non-displaced scaphoid waist fracture, extending into the distal third, with satisfactory fracture alignment Right wrist CT: IMPRESSION: 1. No definite scaphoid fracture. If clinical concern persists then MRI can be more sensitive for detection of nondisplaced fractures. 2. Healed distal radius fracture. 3. Diffusely decreased bone mineral density limits evaluation. 4. Degenerative changes greatest at the 1st carpometacarpal joint. This document has been electronically signed by: Fredrick Morrison DO on 10/29/2025 Psych Appearance: grossly normal Affect: normal affect Attitude: cooperative Assessment & Plan Assessment & Plan (1) Fracture of right distal radius: Code(s): S52.501A - Unspecified fracture of the lower end of right radius, initial encounter for closed fracture Category: Medical (2) Fracture of scaphoid of right wrist: Code(s): S62.001A - Unspecified fracture of navicular [scaphoid] bone of right wrist, initial encounter for closed fracture Category: Medical Plan Assessment & Plan: 1. Right distal radius fracture, transverse metaphyseal From a fall, DOI: 05/18/25 2. Right scaphoid waist fracture Date of first cast: 05/29/25 I educated her about this condition She appears to have healed well. This was managed conservatively I discussed activity modifications, she is to use her hand for normal daily activities, as tolerated She will perform ROM exercises at home She has a Hx of Anorexia, I discussed good nutrition habits with her during the healing process. She will follow up prn. Scribed for Montse Forde MD by Lorenzo Marquez, coroner/medical examiner, on 11/13/25 at 9:50 AM, EST. Coding Level of Care Code Est Pt Level 3 (30991) Diagnoses Fracture of right distal radius S52.501A Fracture of scaphoid of right wrist S62.001A
--- OUTSIDE RECORDS SUMMARY | 2025-11-13 12:17 | XMS_ITS | Clinical Summary ---
Author Organization [facility] Address [address] [facility] [address] [place] [id number] Phone Care Team Providers Care Lens Grinder Rough Name Role Phone Pcp, Unknown Primary Care [...] Devices Not on file Insurance Care Teams Lens Grinder Rough Relationship Specialty Start Date End Date Pcp, Unknown PCP - General 09/06/20 Additional Source Comments The information contained in this document represents components of the legal health record. It is not the complete legal health record.[facility]
--- OUTSIDE RECORDS SUMMARY | 2025-11-13 12:17 | XMS_ITS | Encounter Summary ---
Author Organization [facility] Address [address] [facility] [address] [place] [address] Phone Care Team Providers Care Director Of Planning Name Role Phone Pcp, Unknown Primary Care Provider Unavailabl e Pcp, Unknown Primary Care Provider Unavailabl e Encounter Details Date Type Department Care Team (Late st Contact Info) Description 08/09/2018 Transcribe Orders [facility] Specimen Processing [address] [place] [address] Joel Frederick, [facility] [address] [facility] [address] [place] [address] [email or web address] Abscess (Primary Dx) Social History Tobacco Use [...] ABSCESS AEROBIC/ANAEROB IC GRAM STAIN, CHIN ABSCESS [facility] Special Requests None [facility] GRAM STAIN Few WBC'S , NO ORGANISMS SEEN [facility] Culture/Test Few ESCHERICHIA COLI(A) [facility] Culture/Test with MIXED ORGANISMS RESEMBLING CUTANEOUS SHIREEN(A) [facility] Report Status 08/11/2018 FINAL [facility] ORGANISM ESCHERICHIA COLI [facility] Other (Abscess) 08/09/2018 3 :00 PM [...] LAB MICROBIOLOGY CULTURE AMBROCIO GONZALEZ Final Result [address] [address] documented in this encounter Visit Diagnoses Diagnosis Abscess- Primary Cellulitis and abscess of unspecified site documented in this encounter Care Teams Director Of Planning Relationship Specialty Start Date End Date Pcp, Unknown PCP - General 08/09/18 09/05/20 Pcp, Unknown PCP - General 09/06/20 documented as of this encounter Additional Source Comments The information contained in this document represents components of the legal health record. It is not the complete legal health record.[facility]
== END 2025-11-13 09:59 | disposition home or self-care (01) ==
LOC: HO.HOS 09:32
PROVIDERS: Referring Provider Orthopaedic Surgery; Visit Provider Orthopaedic Surgery
DX: S52.501A Unspecified fracture of the lower end of right radius, initial encounter for closed fracture (principal); S62.001A Unspecified fracture of navicular [scaphoid] bone of right wrist, initial encounter for closed fracture
CPT/HCPCS: 99213

== ENCOUNTER → 2025-11-13 09:32 | Outpatient (BNVA) | payer OTHER, SELFPAY | PROVIDERS: Visit Provider Orthopaedic Surgery | DX: S62.001D Unspecified fracture of navicular [scaphoid] bone of right wrist, subsequent encounter for fracture with routine healing (principal); S52.501D Unspecified fracture of the lower end of right radius, subsequent encounter for closed fracture with routine healing; W19.XXXD Unspecified fall, subsequent encounter; Z68.1 Body mass index [BMI] 19.9 or less, adult; Z86.59 Personal history of other mental and behavioral disorders | CPT/HCPCS: 99212 ==